=== PATIENT | male | born 1945 | race Caucasian/White ===

== ENCOUNTER 2017-02-07 18:16 | Inpatient (IN) ==
[2017-02-07] MEDS ORDERED: Aspirin 81 MG TAB.CHEW PO ONE (18:19)
--- NOTE | 2017-02-07 18:48 | Emergency Department Note ---
Disposition Clinical Impression: ACS (acute coronary syndrome) Disposition: Admitted As Inpatient Condition: Good Referrals: Unassigned,Provider [Non-Partnered Physician] - Forms: ED Satisfaction Letter Time of Disposition: 20:04 General Adult HPI - General Chief complaint: ED Chest Pain Stated complaint: CP Time Seen by Provider: 02/07/17 18:18 Source: patient, EMS Limitations: no limitations Nursing Notes Reviewed: Yes Vital Signs Reviewed: Yes - History of Present Illness HPI Narrative: History of present illness: 71 year old male transferred from the [facility] for chest pain. Patient has a history of one cardiac stent placed in in the right coronary artery. Earlier in the year had a chemical stress test which was negative. 3 days of increasing exertional chest pain pressure. With some shortness of breath. Patient got very concerned when he walked into his air conditioned basement which he says he keeps very cold and broke out into a sweat. Patient's initial troponin per [facility] was negative. He has an extensive history of CAD hypertension urinary artery disease chronic back pain. Patient states that he is pain-free at this time. Is here for further evaluation Pain Scale: 2 - Related Data Home Medications Medication Instructions Recorded Confirmed Allopurinol [Zyloprim 100 MG] 100 mg PO DAILY 01/15/16 02/07/17 Ascorbic Acid [Vitamin C] 500 mg PO DAILY 01/15/16 02/07/17 Aspirin 81 mg PO DAILY 01/15/16 02/07/17 Furosemide [Lasix] 40 mg PO BID 01/15/16 02/07/17 Gabapentin [Neurontin] 800 mg PO TID 01/15/16 02/07/17 Insulin Glargine,Hum.rec.anlog 20 unit SQ QA 01/15/16 02/07/17 [Lantus Solostar] Insulin Glargine,Hum.rec.anlog 65 unit SQ 01/15/16 02/07/17 [Lantus Solostar] Losartan Potassium [Cozaar] 100 mg PO DAILY 01/15/16 02/07/17 Pravastatin Sodium [Pravachol] 40 mg PO HS 01/15/16 02/07/17 Carboxymethylcellulose Sodium 1 drop OP QID 02/07/17 02/07/17 [Refresh Liquigel] Cholecalciferol (D-3) [Vitamin D] 2,000 unit PO DAILY 02/07/17 02/07/17 Cyanocobalamin (Vitamin B-12) 500 mcg PO DAILY 02/07/17 02/07/17 [Vitamin B-12] Dextrose [Glucose] 8 gm PO AD PRN 02/07/17 02/07/17 Diltiazem HCl [Diltiazem 24Hr Cd] 120 mg PO DAILY 02/07/17 02/07/17 Insulin ASPART [Novolog Flexpen] 20 unit SQ TIDWM 02/07/17 02/07/17 Metoprolol XL (24 HR) Succ [Toprol 12.5 mg PO DAILY 02/07/17 02/07/17 XL] Mineral Oil/Petrolatum,White 1 appl OP HS 02/07/17 02/07/17 [Refresh P.m. Ointment] Sildenafil Citrate [Viagra] 50 mg PO AD PRN 02/07/17 02/07/17 Previous Rx's Medication Instructions Recorded Levothyroxine [Synthroid] 25 mcg PO 0630 #30 tablet 02/27/16 Allergies Allergy/AdvReac Type Severity Reaction Status Date / Time niacin Allergy Unknown unknown Unverified 01/15/16 10:39 atorvastatin [From Lipitor] AdvReac Unknown stomach Verified 01/15/16 10:40 pain simvastatin [From Zocor] AdvReac Unknown stomach Verified 01/15/16 10:40 pain All systems ED: reviewed and negative except as stated. Cardiovascular: Reports: chest pain, dyspnea on exertion Respiratory: Reports: dyspnea Past Medical History - Past Medical History Attestation: Yes The following information was validated with the patient. Source: patient, old records reviewed Medical history: Reports: CHF, dementia, diabetes, hyperlipidemia, hypertension , myocardial infarction, peripheral artery disease, renal disease, thyroid disease, other Psychiatric history: Reports: bipolar, depression - Social History Smoking Status: Former smoker Alcohol use: Reports: none Drug use: Reports: none Physical Exam - General Limitations: no limitations General appearance: alert, in no apparent distress - Head Head exam: atraumatic, normocephalic - Eye Eye exam: Present: normal appearance, PERRL, EOMI - Neck Neck exam: Present: normal inspection, full ROM - Chest Chest inspection: Present: normal inspection, symmetric chest wall rise - Respiratory Respiratory exam: Present: normal lung sounds bilaterally - Cardiovascular Cardiovascular exam: Present: regular rate, normal rhythm - Abdominal Exam Abdominal exam: Present: soft, Non-Tender - Extremities Exam Extremities exam: Present: full ROM, pedal edema - Expanded Lower Extremity Exam Neurovascular/Tendon exam: Present: normal capillary refill Gait: observed and normal - Back Exam Back exam: Present: normal inspection, full ROM - Neurological Exam Neurological exam: Present: alert, oriented X3, CN II-XII intact - Psychiatric Psychiatric exam: Present: normal affect, normal mood Course - Reevaluation(s) Reevaluation #1: Patient resting comfortably in bed. Initial EKG shows no acute ischemic changes. Awaiting repeat labs. That admission. Patient is comfortable with this plan and is in agreement. Time: 18:48 Reevaluation #2: ED workup is complete. Patient's troponin is negative. We demonstration of chronic kidney disease. Awaiting hospitalist call back for admission. Patient stable Time: 19:52 Reevaluation #3: Discussed case with the hospitalist, patient accepted for admission in stable condition by Dr. RICO Time: 20:04 Vital Signs Temperature 99.1 F 02/07/17 18:18 Pulse Rate 55 02/07/17 18:18 Respiratory Rate 18 02/07/17 18:18 Blood Pressure 166/76 02/07/17 18:18 O2 Sat by Pulse Oximetry 98 02/07/17 18:18 Temperature 99.1 F 02/07/17 18:18 Pulse Rate 55 02/07/17 18:18 Respiratory Rate 18 02/07/17 18:18 Blood Pressure 166/76 02/07/17 18:18 O2 Sat by Pulse Oximetry 99 02/07/17 18:19 Oxygen Delivery Oxygen Delivery Room Air Medical Decision Making - Medical Records Medical records reviewed: Yes I reviewed the patient's medical records. - Lab Data Lab results reviewed: Yes I reviewed the patient's lab results. Result diagrams: 02/07/17 18:35 02/07/17 18:35 Lab Results 02/07/17 02/07/17 02/07/17 Range/Units 18:35 18:35 18:35 WBC 6.4 (4.3-11.1) K/mcL RBC 3.71 L (4.19-5.50) M/mcL Hgb 11.9 L (12.9-16.9) g/dL Hct 35.4 L (37.5-50.1) % MCV 95.4 (83.0-100.0) fL MCH 32.1 (28.0-33.3) pg MCHC 33.6 (31.6-35.5) g/dL RDW 13.2 (11.5-14.5) % Plt Count 80 L (140-400) K/mcL MPV 12.6 H (9.4-12.4) fL Immature Gran % 0.3 (0-4) % Seg Neutrophils % 67.4 % Lymphocytes % 19.0 % Monocytes % 10.3 % Eosinophils % 2.8 % Basophils % 0.2 % Neutrophils # 4.3 (1.6-8.9) K/mcL Lymphocytes # 1.2 (0.6-4.6) K/mcL Monocytes # 0.7 (0.0-1.3) K/mcL Eosinophils # 0.2 (0.0-0.6) K/mcL Basophils # 0.0 (0.0-0.2) K/mcL Immature Plt Fraction 6.8 H (1.1-6.1) % PT 11.8 (9.4-12.1) Seconds INR 1.1 APTT 27.2 (26.0-36.0) Seconds Sodium 142 (136-145) mEq/L Potassium 4.9 H (3.5-4.5) mEq/L Chloride 111 H (98-109) mEq/L Carbon Dioxide 23 (19-29) mEq/L BUN 71 H (8-26) mg/dL Creatinine 2.16 H (0.72-1.25) mg/dL Est GFR ( Amer) 37 L (> 60) Est GFR (Non-Af Amer) 30 L (> 60) BUN/Creatinine Ratio 33 H (6-26) Glucose 134 H (70-99) mg/dL Calculated Osmolality 317 H (280-300) Calcium 9.3 (8.6-10.8) mg/dL Troponin I (0-0.03) ng/mL 02/07/17 Range/Units 18:35 WBC (4.3-11.1) K/mcL RBC (4.19-5.50) M/mcL Hgb (12.9-16.9) g/dL Hct (37.5-50.1) % MCV (83.0-100.0) fL MCH (28.0-33.3) pg MCHC (31.6-35.5) g/dL RDW (11.5-14.5) % Plt Count (140-400) K/mcL MPV (9.4-12.4) fL Immature Gran % (0-4) % Seg Neutrophils % % Lymphocytes % % Monocytes % % Eosinophils % % Basophils % % Neutrophils # (1.6-8.9) K/mcL Lymphocytes # (0.6-4.6) K/mcL Monocytes # (0.0-1.3) K/mcL Eosinophils # (0.0-0.6) K/mcL Basophils # (0.0-0.2) K/mcL Immature Plt Fraction (1.1-6.1) % PT (9.4-12.1) Seconds INR APTT (26.0-36.0) Seconds Sodium (136-145) mEq/L Potassium (3.5-4.5) mEq/L Chloride (98-109) mEq/L Carbon Dioxide (19-29) mEq/L BUN (8-26) mg/dL Creatinine (0.72-1.25) mg/dL Est GFR ( Amer) (> 60) Est GFR (Non-Af Amer) (> 60) BUN/Creatinine Ratio (6-26) Glucose (70-99) mg/dL Calculated Osmolality (280-300) Calcium (8.6-10.8) mg/dL Troponin I 0.02 (0-0.03) ng/mL - Radiology Data Radiology results reviewed: Yes I reviewed the patient's radiology results. - EKG Data EKG #1 EKG attestation: Yes I reviewed and interpreted this EKG. EKG results narrative: Lead EKG interpreted without cardiology shows sinus bradycardia at 50 bpm, PA interval 177 ms, QS duration 95 ms, QT corrected 388 ms NORMAL LIMITS. NO ACUTE ISCHEMIC CHANGES ARE NOTED. NO ACUTE CHANGES WHEN COMPARED TO PRIOR EKG DATED 03/13/2006
[2017-02-07 18:51] LABS: Mean Corpuscular Volume 95.4 fL (83.0-100.0); Red Cell Distribution Width 13.2 % (11.5-14.5)
[2017-02-07 18:52] LABS: Basophils % 0.2 %; Eosinophils # 0.2 K/mcL (0.0-0.6); Eosinophils % 2.8 %; Hematocrit 35.4 % (37.5-50.1); Hemoglobin 11.9 g/dL (12.9-16.9); Immature Granulocytes % 0.3 % (0-4); Immature Platelets 6.8 % (1.1-6.1); Lymphocytes # 1.2 K/mcL (0.6-4.6); Mean Corpuscular HGB Conc 33.6 g/dL (31.6-35.5); Mean Corpuscular Hemoglobin 32.1 pg (28.0-33.3); Mean Platelet Volume 12.6 fL (9.4-12.4); Monocytes # 0.7 K/mcL (0.0-1.3); Monocytes % 10.3 %; Neutrophils # 4.3 K/mcL (1.6-8.9); Red Blood Count 3.71 M/mcL (4.19-5.50); Segmented Neutrophils % 67.4 %
[2017-02-07 18:53] LABS: Platelet Count 80 K/mcL (140-400)
[2017-02-07 18:55] LABS: INR 1.1; Prothrombin Time 11.8 Seconds (9.4-12.1)
[2017-02-07 18:57] LABS: Activated Partial Thrombo Time 27.2 Seconds (26.0-36.0)
[2017-02-07 19:04] LABS: Calcium 9.3 mg/dL (8.6-10.8); Potassium 4.9 mEq/L (3.5-4.5)
[2017-02-07] MEDS ORDERED: Naloxone 0.4 MG/ML INJ IVP PRN (20:04)
--- NOTE | 2017-02-07 22:09 | Internal Med History&Physical ---
Date of Encounter: 02/07/17 Time of Encounter: 22:09 Assessment and Plan (1) Chest pain Current visit: Yes Status: Acute patient with significant risk factors; HTN/poorly controlled DM2/CAD s/p stent in 2005 comes in with chest pain and associated symptoms concerning for ACS, his admission EKG was sinus bradycardia with no acute ischemic changes, troponin was unremarkable, he had a negative stress test in 07/2016, for this patient concern is for balanced ischemia considering his uncontrolled DM and other risk factors, for now we will get another stress test but will need to consider a cardiac cath sometime-this is currently limited by his CKD Qualifiers: Chest pain type: precordial pain Qualified Code(s): R07.2 - Precordial pain (2) Hyperkalemia Current visit: Yes Status: Acute this may be related to the CKD, we will hydrate and follow BMP (3) HTN (hypertension) Current visit: Yes Status: Chronic will continue home medications with BP monitoring Qualifiers: Hypertension type: essential hypertension Qualified Code(s): I10 - Essential (primary) hypertension (4) Diabetes mellitus Current visit: Yes Status: Chronic hx of DM with poor control, his most recent A1c was 8.4% with hyperglycemia, we will continue his home basal bolus regimen, for now he is FS Q6H for stress test Qualifiers: Diabetes mellitus type: type 2 Diabetes mellitus complication status: with kidney complications Diabetes mellitus complication detail: with chronic kidney disease Diabetes mellitus exterminator termite insulin use: with custodial use Chronic kidney disease stage: stage 3 (moderate) Qualified Code(s): E11.22 - Type 2 diabetes mellitus with diabetic chronic kidney disease; N18.3 - Chronic kidney disease, stage 3 (moderate); Z79.4 - intermediate card tender (current) use of insulin (5) Chronic kidney disease (CKD), stage III (moderate) Current visit: Yes Status: Chronic seems to be at his baseline, we will avoid nephrotoxins, renally dose all medications and follow BMP Internal Medicine - H&P: HPI Chief complaint: Chest pain Admitted From: Emergency Dept Plans for Post Hospital Care: Home History of present illness: Mr. Sandoval is a 71 year old male with a history of HTN/poorly controlled DM2/ CAD s/p stent in 2005 who comes in with chest pain. He was in his usual state of health until 3 days prior to presentation when he began to have stuttering chest pain. The pain is substernal in location, non radiating, 6/10 in severity. He had multiple episodes, with no aggravating or relieving factors. He had no nitro at home so he never took any. He waited it out over the course of 2 days until today when it was associated with diaphoresis in a room that was cold. He also had dyspnea and apprehension associated with today's episode. No lightheadedness, nausea or vomiting, palpitations were noted. He reported t the ER of [facility] for further evaluation. Past Medical History CAD s/p stent Carpal Tunnel Hypertension Diabetes Cervical Spine Cyst Heart Disease Arthritis Kidney Problems Surgical History Penile Implant--2012 Social history: Tobacco: Past smoker, 4ppd for 20 years. Quit 25 years ago. Alcohol: None Recreational drugs: None Marital Status: Occupation: Disabled/Retired .Served in [employer], was stationed in [employer] and [employer] as well. 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 Living situation: At home with Family History Father: , Heart/Stroke Mother: , Sugar Brother(s): 3, 1 alive, 2 Sister(s):2 alive, 1-cancer Child(kevin): 2 alive, 1-narcolepsy Past Med Surg Social Fam HX - Past Medical History Source: old records reviewed Medical history: CHF, coronary artery disease (s/p stent), dementia, diabetes, hyperlipidemia, hypertension, myocardial infarction, peripheral artery disease, renal disease (stage 3), thyroid disease, other Psychiatric history: bipolar, depression, PTSD - Past Surgical History Surgical History: angioplasty/stent - Social History Smoking Status: Former smoker Smokeless Tobacco Status: No Alcohol use: none Drug use: none - Family History Father Living Status: Hx Family Cardiac Disorders: Yes Internal Medicine - H&P: Meds Allopurinol [Zyloprim 100 MG] 100 mg PO DAILY 01/15/16 [History] Ascorbic Acid [Vitamin C] 500 mg PO DAILY 01/15/16 [History] Aspirin 81 mg PO DAILY 01/15/16 [History] Furosemide [Lasix] 40 mg PO BID 01/15/16 [History] Gabapentin [Neurontin] 800 mg PO TID 01/15/16 [History] Insulin Glargine,Hum.rec.anlog [Lantus Solostar] 20 unit SQ QAM 01/15/16 [ History] Insulin Glargine,Hum.rec.anlog [Lantus Solostar] 65 unit SQ HS 01/15/16 [History ] Losartan Potassium [Cozaar] 100 mg PO DAILY 01/15/16 [History] Pravastatin Sodium [Pravachol] 40 mg PO HS 01/15/16 [History] Levothyroxine [Synthroid] 25 mcg PO 0630 #30 tablet 02/27/16 [Rx] Carboxymethylcellulose Sodium [Refresh Liquigel] 1 drop OP QID 02/07/17 [History ] Cholecalciferol (D-3) [Vitamin D] 2,000 unit PO DAILY 02/07/17 [History] Cyanocobalamin (Vitamin B-12) [Vitamin B-12] 500 mcg PO DAILY 02/07/17 [History] Dextrose [Glucose] 8 gm PO AD PRN 02/07/17 [History] Diltiazem HCl [Diltiazem 24Hr Cd] 120 mg PO DAILY 02/07/17 [History] Insulin ASPART [Novolog Flexpen] 20 unit SQ TIDWM 02/07/17 [History] Metoprolol XL (24 HR) Succ [Toprol XL] 12.5 mg PO DAILY 02/07/17 [History] Mineral Oil/Petrolatum,White [Refresh P.m. Ointment] 1 appl OP HS 02/07/17 [ History] Sildenafil Citrate [Viagra] 50 mg PO AD PRN 02/07/17 [History] Allergies niacin Allergy (Unknown, Verified 02/07/17 22:34) unknown atorvastatin [From Lipitor] Adverse Reaction (Unknown, Verified 01/15/16 10:40) stomach pain simvastatin [From Zocor] Adverse Reaction (Unknown, Verified 01/15/16 10:40) stomach pain All Systems PM: A 10-system review of systems was performed and is negative for pertinent findings except as documented above in the HPI. - Constitutional Vitals: Temp Pulse Resp BP Pulse Ox 98.0 F 50 18 172/78 98 02/07/17 21:30 02/07/17 21:30 02/07/17 21:30 02/07/17 21:30 02/07/17 21:30 GENERAL: Adult male, lying in bed, Alert, not in acute distress, HEENT: NC/AT, EOMI, PERRLA, anicteric sclera, normal conjunctiva, supple, clear nares, moist mucous membranes, clear oropharynx, RESP: Lungs are clear to auscultation bilaterally, good AE bilaterally, No crackles or wheeze CARDIO: Normal hearts sounds; S1 and 2, RRR with no murmurs, no JVD, no ankle edema GI: Soft, full, no tenderness, no organomegaly felt, normal bowel sounds heard MUSCULOSKELETAL: grossly normal movements bilaterally, no deformities noted, no calf tenderness NEUROLOGIC: CN 2-12 intact grossly. No motor/sensory deficit appreciated, PSYCHIATRY: AAO x 3. Mood is fair, SKIN: tattoos noted Internal Med - H&P Results - Labs CBC & Chem 7: 02/07/17 18:35 02/08/17 00:36 - EKG Data -: EKG Interpreted by Myself - Diagnostic Studies Chest x-ray Status: image reviewed by me
[2017-02-07] MEDS: Gabapentin 400 MG CAPSULE PO SCH (22:36)
[2017-02-07] MEDS: Artificial Tears SOLN 15 ML BOTTLE OP SCH (22:37)
[2017-02-07] MEDS ORDERED: Dextrose Gel 15 GM PO PRN ×2 (22:48)
[2017-02-07] MEDS ORDERED: D5% in Water 1,000 ML IVC PRN (22:48)
[2017-02-07] MEDS ORDERED: *HR* Dextrose 50 % in Water (Syg) 50 ML SYRINGE IVP PRN (22:48)
[2017-02-07] MEDS: Pravastatin Sodium [Pravachol] 40 MG PO SCH (22:51)
[2017-02-07] MEDS ORDERED: Insulin LISPRO 300 UNITS/3 ML VIAL SQ SCH ×2 (23:00)
[2017-02-08] MEDS: *HR* Heparin 5,000 UNIT/ML VIAL SQ SCH ×3 (00:22→15:13)
[2017-02-08 01:12] LABS: Hemoglobin A1C 8.4 %
[2017-02-08 01:31] LABS: Calcium 8.7 mg/dL (8.6-10.8); Magnesium 1.9 mg/dL (1.6-2.6); Phosphorous 3.7 mg/dL (2.3-4.7); Potassium 5.5 mEq/L (3.5-4.5)
[2017-02-08 01:43] LABS: Chol/HDL Ratio 4.3 (0-4.9)
[2017-02-08] MEDS ORDERED: Ringers Solution, Lactated 1,000 ML IVC SCH (04:45)
[2017-02-08] MEDS: Levothyroxine 25 MCG TABLET PO SCH (06:25)
[2017-02-08] MEDS: Insulin LISPRO 300 UNITS/3 ML VIAL SQ SCH ×3 (06:39→18:21)
[2017-02-08] MEDS ORDERED: Regadenoson 0.4 MG/5 ML SYRINGE IVP ONE (07:26)
[2017-02-08] MEDS ORDERED: Ascorbic Acid 500 MG TABLET PO SCH (09:00)
[2017-02-08] MEDS ORDERED: Diltiazem CD (24hr) 120 MG CAPSULE PO SCH (09:00)
[2017-02-08] MEDS ORDERED: Cholecalciferol (D-3) 1,000 UNIT TABLET PO SCH (09:00)
[2017-02-08] MEDS ORDERED: Cyanocobalamin (B-12) 1,000 MCG TABLET PO SCH ×2 (09:00→10:45)
[2017-02-08] MEDS ORDERED: Aspirin 81 MG TAB.CHEW PO SCH (09:00)
[2017-02-08] MEDS ORDERED: Metoprolol XL (24 HR) Succ 25 MG TAB.ER.24H PO SCH (09:00)
[2017-02-08] MEDS: Gabapentin 400 MG CAPSULE PO SCH ×3 (11:04→22:29)
[2017-02-08] MEDS: Artificial Tears SOLN 15 ML BOTTLE OP SCH ×4 (11:07→22:29)
[2017-02-08] MEDS: 0.9 % Sodium Chloride 1,000 ML IVC SCH (11:49)
--- NOTE | 2017-02-08 12:56 | Nuclear Medicine Stress Report ---
Regadenoson Nuclear Stress Name: Casper Sandoval Date of Study: 02/08/2017 Date: 1945 Ht: 70.0 in Medical Record#: [id number] Age: 71 Wt: 262.0 lb Gender: Male Order #: [id number] Location: [facility] Room: [facility] Supervising Provider: Remedios Lawrence CNP Reading Physician: Kristyn Romero DO Ordering Physician: Charla Redman CNP Primary Care Physician: [facility] Stress Technologist: Katy Valencia, RELAY CHECKER,CPFT Pharmacoepidemiologist: Hany Crump Indications: Coronary Artery Disease, Chest Pain Impression: Technically challenging study due to body habitus. No evidence for ischemia or infarct on this study. Pharmacologic ECG was negative for ischemia at the level of heart rate achieved. Gated EF = 69%. History: Hypertension Diabetes Hypercholesteremia Prior PCI Stress Test Summary: Stress Test Type: Pharmacologic Regadenoson 0.4mg/5ml given IV Baseline Information: Initial Heart Rate: 49 Blood Pressure: 122/58 Stress Information: Test Terminated Due to (primary): Dyspnea Maximum Blood Pressure: 154/62 Maximum Heart Rate: 67 Percent Maximum Heart Rate Achieved: 44 Double Product: [id number] METS Reached: 1 Symptoms: Shortness of breath Nuclear Summary: SPECT myocardial perfusion imaging using Tc99m Sestamibi given intravenously was performed at rest and following cardiac stress testing. The resting images were obtained following initial dose of 11.7 mCi. Following stress an additional dose of 30.1 mCi was given at peak exercise or 30 seconds post regadenoson infusion. Medication Given: Time Medication Dose Units Route Findings: Stress Note * Resting ECG demonstrated normal sinus rhythm with early repolarization. * Pharmacologic stress ECG is negative for ischemia at level of heart rate achieved. * No arrhythmias were noted during stress. * Patient had no chest pain during stress. Hemodynamic responses * Normal hemodynamic responses to pharmacologic stress. Study Quality * Technically challenging due to body habitus. TID * No evidence of transient ischemic dilatation. Lung Uptake * There is no evidence of increase lung uptake. NORMALS * Normal wall motion. PERFUSION * Small size, mild intensity fixed perfusion defect involving the distal anterior wall. Wall motion is normal. Findings represent artifact. * Small sized, mild intensity primarily fixed perfusion defect involving the distal inferior wall that improves during stress. Findings represent artifact. * Other areas demonstrate homogeneous rest and stress perfusion. Gated EF % * Gated EF = 69%. Updated by Kristyn Romero on 02/08/2017 12:50:01 PM electronically signed on 02/08/2017 12:51:17 PM with status of Final
[2017-02-08 13:32] LABS: Calcium 9.3 mg/dL (8.6-10.8); Potassium 5.4 mEq/L (3.5-4.5)
--- NOTE | 2017-02-08 17:06 | Discharge Summary ---
<Iraj Esteves - Last Filed: 02/08/17 17:07> Date of Encounter: 02/08/17 Time of Encounter: 17:06 - Discharge Diagnosis (1) Chest pain Status: Acute Qualifiers: Chest pain type: precordial pain Qualified Code(s): R07.2 - Precordial pain (2) Hyperkalemia Status: Acute (3) Chronic kidney disease (CKD), stage III (moderate) Status: Chronic (4) Diabetes mellitus Status: Chronic Qualifiers: Diabetes mellitus type: type 2 Diabetes mellitus complication status: with kidney complications Diabetes mellitus complication detail: with chronic kidney disease Diabetes mellitus terminal gauger supervisor insulin use: with terminal gauger supervisor use Chronic kidney disease stage: stage 3 (moderate) Qualified Code(s): E11.22 - Type 2 diabetes mellitus with diabetic chronic kidney disease; N18.3 - Chronic kidney disease, stage 3 (moderate); Z79.4 - USP (current) use of insulin (5) HTN (hypertension) Status: Chronic Qualifiers: Hypertension type: essential hypertension Qualified Code(s): I10 - Essential (primary) hypertension (6) Bicytopenia Status: Acute - Discharge Medications Prescriptions: hydrALAZINE [HydrALAZINE] 25 mg PO Q8HR 30 Days Home Medications: Allopurinol [Zyloprim 100 MG] 100 mg PO DAILY 01/15/16 [History] Ascorbic Acid [Vitamin C] 500 mg PO DAILY 01/15/16 [History] Aspirin 81 mg PO DAILY 01/15/16 [History] Furosemide [Lasix] 40 mg PO BID 01/15/16 [History] Gabapentin [Neurontin] 800 mg PO TID 01/15/16 [History] Insulin Glargine,Hum.rec.anlog [Lantus Solostar] 20 unit SQ QAM 01/15/16 [ History] Insulin Glargine,Hum.rec.anlog [Lantus Solostar] 65 unit SQ HS 01/15/16 [History ] Pravastatin Sodium [Pravachol] 40 mg PO HS 01/15/16 [History] Levothyroxine [Synthroid] 25 mcg PO 0630 #30 tablet 02/27/16 [Rx] Carboxymethylcellulose Sodium [Refresh Liquigel] 1 drop OP QID 02/07/17 [History ] Cholecalciferol (D-3) [Vitamin D] 2,000 unit PO DAILY 02/07/17 [History] Cyanocobalamin (Vitamin B-12) [Vitamin B-12] 500 mcg PO DAILY 02/07/17 [History] Dextrose [Glucose] 8 gm PO AD PRN 02/07/17 [History] Diltiazem HCl [Diltiazem 24Hr Cd] 120 mg PO DAILY 02/07/17 [History] Insulin ASPART [Novolog Flexpen] 20 unit SQ TIDWM 02/07/17 [History] Metoprolol XL (24 HR) Succ [Toprol Xl] 12.5 mg PO DAILY 02/07/17 [History] Mineral Oil/Petrolatum,White [Refresh P.m. Ointment] 1 appl OP HS 02/07/17 [ History] Sildenafil Citrate [Viagra] 50 mg PO AD PRN 02/07/17 [History] hydrALAZINE [HydrALAZINE] 25 mg PO Q8HR 30 Days 02/08/17 [Rx] Allergies/Adverse Reactions: Allergies niacin Allergy (Unknown, Verified 02/07/17 22:34) unknown atorvastatin [From Lipitor] Adverse Reaction (Unknown, Verified 01/15/16 10:40) stomach pain simvastatin [From Zocor] Adverse Reaction (Unknown, Verified 01/15/16 10:40) stomach pain Procedures/tests Complete & Pending: Procedures Performed prior 72 hours Category Date Time Status NM migel perf SPECT multi [NM] Routine Exams 02/07/17 23:04 Taken SP pharm nuclear stress Routine Y 02/07/17 23:04 Completed Date of admission: 02/07/17 20:30 Primary care physician: [facility] Discharging clinician: Iraj Esteves Anticipated date of discharge: 02/08/17 - Patient Status Disposition: Home, Self-Care Condition: Good Functional capacity at discharge: independent ambulation Overall status at discharge: patient is progressing back to baseline - Discharge Instructions [facility] - - Diet and Activity Activity: increase activity as tolerated Diet: diabetic diet, low fat, low cholesterol, low salt diet Hospital course: Mr. Sandoval is a 71 year old male with the past with history of coronary artery disease, diabetes, hypertension, CAD cessation 3. He was admitted to [facility] with the chest pain. He will undergo stress test which was negative for ischemia. Additionally upon admission it was noted that he had hyperkalemia. Most likely this is secondary to combination of his COPD and his losartan. His losartan was stopped. He was started on hydralazine for blood pressure control in lieu of the losartan. He was also treated with Kayexalate. Potassium trended down. At this time the patient denies any chest pain. He has no symptoms at this time. We will discharge him home. Of note with review of his laboratory values he does have a mild chronic anemia this is most likely secondary to his chronic kidney disease. However he does have a thrombocytopenia as well with his history of insulin-dependent diabetes mellitus would recommend workup for cirrhosis if not artery done at this point. Additionally with his past medical history of coronary artery disease and having received a stent 6 years ago if patient continues to have symptoms would recommend consult to cardiology if he returns to the hospital for chest pain to evaluate him for possible left heart catheter. I also would recommend that he follow-up with cardiology at the [facility] as a now have a education manager on staff there. I have discussed the above plan with the patient and his he is agreeable. We will discharge him today. - Time Spent with Patient Total time spent providing and/or coordinating discharge services: Greater than 30 minutes - Constitutional Vitals: Temp Pulse Resp BP Pulse Ox 97.4 F L 51 16 157/75 95 02/08/17 15:05 02/08/17 15:05 02/08/17 15:05 02/08/17 15:05 02/08/17 15:05 General appearance: Present: A&O X 3, pleasant, no acute distress, obese - Head Head exam: Present: atraumatic, normocephalic - Eye Eye exam: Present: PERRL, conjuntiva pink, sclera anicteric Pupils: Present: PERRL - Neck Neck exam general surgery: Present: supple, trachea midline. Absent: lymphadenopathy - Respiratory Respiratory exam: Present: CTAB. Absent: accessory muscle use, rales, rhonchi, wheezes - Cardiovascular Cardiovascular exam: Present: RRR, +S1, +S2. Absent: diastolic murmur, gallop, rubs, systolic murmur - GI/Abdominal GI/Abdominal exam: Present: normal bowel sounds, soft, no peritoneal signs. Absent: distended, tenderness - Extremities Exam Extremities exam: Present: warm, radial pulses palpable and symetrical. Absent : calf tenderness, cyanotic, pedal edema - Skin Skin exam: Present: dry, intact <Justen Sam - Last Filed: 02/08/17 19:05> Date of Encounter: 02/08/17 Procedures/tests Complete & Pending: Procedures Performed prior 72 hours Category Date Time Status NM migel perf SPECT multi [NM] Routine Exams 02/07/17 23:04 Taken SP pharm nuclear stress Routine Y 02/07/17 23:04 Completed Date of admission: 02/07/17 20:30 Primary care physician: [facility] Hospital course: Mr. Sandoval is a 71 year old male - Time Spent with Patient Total time spent providing and/or coordinating discharge services: - Constitutional Vitals: Temp Pulse Resp BP Pulse Ox 97.4 F L 51 16 157/75 95 02/08/17 15:05 02/08/17 15:05 02/08/17 15:05 02/08/17 15:05 02/08/17 15:05 - Attending Attestation I examined this patient and my medical decision-making was reviewed with the Resident Physician, Dr. Esteves. I agree with the documented findings, disposition and treatment plan as described. patient presented with atypical chest pain. Serial troponins were negative. Stress test was negative. On examheart auscultation reveals S1 and S2 withno murmurs. Lungs are clear. Plan: Patient continued to have hyperka Hyperkalemia. We will treat him with IV fluids an Kayexalate and plan for discharge home later this evening if potassium drops below 5.
[2017-02-08 17:16] LABS: Calcium 8.9 mg/dL (8.6-10.8); Potassium 5.7 mEq/L (3.5-4.5)
[2017-02-08] MEDS ORDERED: 0.9 % Sodium Chloride 1,000 ML IVC ONE (17:58)
[2017-02-08 21:49] LABS: Calcium 8.8 mg/dL (8.6-10.8)
[2017-02-08] MEDS: Pravastatin Sodium [Pravachol] 40 MG PO SCH (22:29)
[2017-02-09] MEDS: *HR* Heparin 5,000 UNIT/ML VIAL SQ SCH (00:10)
[2017-02-09] MEDS: Insulin LISPRO 300 UNITS/3 ML VIAL SQ SCH ×2 (00:10→05:34)
[2017-02-09] MEDS ORDERED: Calcium Gluconate 1,000 MG in D5% in Water 100 ML IVPB ONE (03:51)
[2017-02-09] MEDS ORDERED: 0.9 % Sodium Chloride 250 ML IVC ONE (03:53)
[2017-02-09] MEDS: 0.9 % Sodium Chloride 1,000 ML IVC SCH (04:48)
[2017-02-09] MEDS: Levothyroxine 25 MCG TABLET PO SCH (04:55)
[2017-02-09 05:23] VITALS: BP 144/61
[2017-02-09 07:11] LABS: Calcium 8.6 mg/dL (8.6-10.8); Magnesium 1.6 mg/dL (1.6-2.6)
[2017-02-09 07:13] LABS: Potassium 5.3 mEq/L (3.5-4.5)
--- NOTE | 2017-02-09 09:16 | Internal Med Progress Note ---
<Iraj Esteves - Last Filed: 02/09/17 09:14> Date of Encounter: 02/09/17 Time of Encounter: 09:14 - Assessment and plan (1) Chest pain Status: Acute Assessment and plan: Patient has had no more chest pain since admission. Stress test negative for ischemia. However this was a poor quality study. Patient dose have history of CAD and had PTCA with stent 6 years ago. We discussed at length the limitations of stress testing. We did offer to consult cardiology to evaluate the patient for possible LHC. However patient desires to be discharged at this time. He will follow up with the [facility] and request a referrel to the new Customer Operations Representative there. Patient agrees to return to the ED should he have recurrent chest pain. He agrees to not drive himself and will either call EMS or have his drive. him. Patient K is trending down and we will discharge him this AM. Qualifiers: Chest pain type: precordial pain Qualified Code(s): R07.2 - Precordial pain (2) Hyperkalemia Status: Acute Assessment and plan: trending down. Will have BMP drawn in 1 week at [facility]. Patient provided with an RX for the Lab (3) Chronic kidney disease (CKD), stage III (moderate) Status: Chronic Assessment and plan: stable (4) Diabetes mellitus Status: Chronic Assessment and plan: resume home medications after DC. Qualifiers: Diabetes mellitus type: type 2 Diabetes mellitus complication status: with kidney complications Diabetes mellitus complication detail: with chronic kidney disease Diabetes mellitus computer terminal operator insulin use: with detention use Chronic kidney disease stage: stage 3 (moderate) Qualified Code(s): E11.22 - Type 2 diabetes mellitus with diabetic chronic kidney disease; N18.3 - Chronic kidney disease, stage 3 (moderate); Z79.4 - superintendent container terminal (current) use of insulin (5) HTN (hypertension) Status: Chronic Assessment and plan: Will continue discharge plan. Patient to follow up with [facility]. Qualifiers: Hypertension type: essential hypertension Qualified Code(s): I10 - Essential (primary) hypertension (6) Bicytopenia Status: Acute Assessment and plan: mild. would recommend evaluation for possible early cirrhosis given his history of diabetes. [facility] - Subjective Interval history: No major events overnight. Patient has not had any recurrence of chest pain since admission. Patient was kept overnight as he had hyperkalemia. He is having loose stools this AM from [facility]. He has no further complaints or concerns at this time and requests to be discharged. - Constitutional Vitals: Temp Pulse Resp BP Pulse Ox 98 F 55 16 144/61 96 02/09/17 05:22 02/09/17 05:22 02/09/17 05:22 02/09/17 05:22 02/09/17 05:22 General appearance: Present: A&O X 3, pleasant, no acute distress, obese - Head Head exam: Present: atraumatic, normocephalic - Eye Eye exam: Present: conjuntiva pink, sclera anicteric - Neck Neck exam general surgery: Present: full ROM, normal inspection - Respiratory Respiratory exam: Present: CTAB. Absent: accessory muscle use, rales, rhonchi, wheezes - Cardiovascular Cardiovascular exam: Present: RRR, +S1, +S2. Absent: diastolic murmur, gallop, rubs, systolic murmur - Extremities Exam Extremities exam: Present: warm, radial pulses palpable and symetrical. Absent : calf tenderness, cyanotic, pedal edema - Skin Skin exam: Present: dry, intact Internal Medicine: Result - Labs CBC & Chem 7: 02/07/17 18:35 02/09/17 06:15 Labs: BMP 02/08/17 02/08/17 02/08/17 13:06 16:47 21:22 Sodium 140 138 142 Potassium 5.4 H 5.7 H 5.0 H Chloride 111 H 109 112 H Carbon Dioxide 23 24 23 BUN 59 H 57 H 54 H Creatinine 1.70 H 1.84 H 1.79 H Glucose 128 H 217 H 163 H Calcium 9.3 8.9 8.8 02/09/17 06:15 Sodium 141 Potassium 5.3 H Chloride 113 H Carbon Dioxide 22 BUN 49 H Creatinine 1.61 H Glucose 104 H Calcium 8.6 - ABG Interpretation ABG results: PT/INR, D-dimer PT 11.8 Seconds (9.4-12.1) 02/07/17 18:35 Consult Discharge Plan - Plan Instructions: Hydralazine (By mouth), Chest Pain (DC), Diabetes Mellitus Type 2 in Adults (DC), Chronic Hypertension (DC) [facility]errals: [facility] [Primary Care Provider] - Prescriptions: hydrALAZINE [HydrALAZINE] 25 mg PO Q8HR 30 Days <Justen Sam - Last Filed: 02/09/17 19:14> Date of Encounter: 02/09/17 - Constitutional Vitals: Temp Pulse Resp BP Pulse Ox 98 F 55 16 144/61 96 02/09/17 05:22 02/09/17 05:22 02/09/17 05:22 02/09/17 05:22 02/09/17 05:22 Internal Medicine: Result - Labs CBC & Chem 7: 02/07/17 18:35 02/09/17 06:15 Labs: BMP 02/08/17 02/09/17 21:22 06:15 Sodium 142 141 Potassium 5.0 H 5.3 H Chloride 112 H 113 H Carbon Dioxide 23 22 BUN 54 H 49 H Creatinine 1.79 H 1.61 H Glucose 163 H 104 H Calcium 8.8 8.6 - ABG Interpretation ABG results: PT/INR, D-dimer PT 11.8 Seconds (9.4-12.1) 02/07/17 18:35 - Attending Attestation I examined this patient and my medical decision-making was reviewed with the Resident Physician, Dr. Esteves. I agree with the documented findings, disposition and treatment plan as described except to the extent set forth below. I have advised the patient to return to the hospital if he experiences chest pain, r pressure,diaphoresis or lightheadedness with exertionor worsening shortness of breath. The patient is symptom free currently and back to Baseline. He stress test was negative. Potassium trending down. He will be discharged home. I have advised him to avoid high potassium foods and gave him a list of these.
--- NOTE | 2017-02-10 09:45 | Electrocardiograph Report ---
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
== END 2017-02-09 09:45 | disposition home or self-care (01) | DRG 313 ==
LOC: 3BNU 18:16 → EMEROO 18:16 → SUATTDRO 20:30 → 3BNU 20:55
PROVIDERS: ADMIT Internal Medicine Endocrinology, Diabetes & Metabolism; ATTEND Internal Medicine

== ENCOUNTER 2018-09-10 18:19 | Inpatient (IN) ==
--- NOTE | 2018-09-10 18:45 | Emergency Department Note ---
Disposition Clinical Impression: Acute kidney failure Qualifiers: Acute renal failure type: with other specified pathological lesion Qualified Code(s): N17.8 - Other acute kidney failure Disposition: Admitted As Inpatient [facility]: [facility] [Primary Care Provider[facility] - General Adult HPI - General Chief complaint: ED Urogenital-Male Stated complaint: blood in urine Time Seen by Provider: 09/10/18 18:32 Source: patient, EMS Limitations: no limitations Nursing Notes Reviewed: Yes Vital Signs Reviewed: Yes - History of Present Illness HPI Narrative: Attestation note: Patient was seen with the emergency medicine resident/nurse practitioner/physician assistant professor of chemistry/transitional resident/medical student: Dr. Mika Storey I have personally performed a face to face evaluation on this patient. I have reviewed and agree with history and physical examination patient management and disposition. Briefly the salient points of the case are as follows: 73-year-old male history of CTD stage III and 4 was briefly [facility]". Patient having giancarlo hematuria for several days with fluid retention weight gain and fatigue feeling poorly with loss of appetite over the past week or so. Patient's creatinine was 5.15 with a GFR of 11. Patient has edema he appears short of breath with some rales afebrile have his bladder scanned with the plan of care bedside ultrasound to check for bladder distention is seen by irrigation as necessary. Radial screening labs we will then consult nephrology for consideration of dialysis urgently if not emergently. We will obtain an EKG to ensure there are no ischemic changes or T waves consistent with hyperkalemia. Disposition pending Pain Scale: 7 - Related Data Home Medications Medication Instructions Recorded Confirmed Allopurinol [Zyloprim 100 MG] 100 mg PO DAILY 01/15/16 06/01/18 Furosemide [Lasix] 40 mg PO BID 01/15/16 06/01/18 Gabapentin [Neurontin] 400 mg PO BID 01/15/16 06/01/18 Insulin Glargine,Hum.rec.anlog 20 unit SQ QAM 01/15/16 06/01/18 [Lantus Solostar] Insulin Glargine,Hum.rec.anlog 65 unit SQ HS 01/15/16 06/01/18 [Lantus Solostar] Pravastatin Sodium [Pravachol] 40 mg PO HS 01/15/16 06/01/18 Cholecalciferol (D-3) [Vitamin D] 2,000 unit PO DAILY 02/07/17 06/01/18 Dextrose [Glucose] 8 gm PO AD PRN 02/07/17 06/01/18 Diltiazem HCl [Diltiazem 24Hr Cd] 120 mg PO DAILY 02/07/17 06/01/18 Insulin ASPART [Novolog Flexpen] 15 unit SQ TIDWM 02/07/17 06/01/18 Metoprolol XL (24 HR) Succ [Toprol 12.5 mg PO DAILY 02/07/17 06/01/18 Xl] Sildenafil Citrate [Viagra] 50 mg PO AD PRN 02/07/17 06/01/18 Previous Rx's Medication Instructions Recorded Levothyroxine [Synthroid] 25 mcg PO 0630 #30 tablet 02/27/16 hydrALAZINE [HydrALAZINE] 25 mg PO Q8HR 30 Days tablet 02/08/17 Allergies Allergy/AdvReac Type Severity Reaction Status Date / Time niacin Allergy Unknown unknown Verified 02/07/17 22:34 atorvastatin [From Lipitor] AdvReac Unknown stomach Verified 06/01/18 09:05 pain simvastatin [From Zocor] AdvReac Unknown stomach Verified 06/01/18 09:05 pain Past Medical History - Past Medical History Medical history: Reports: arthritis, CHF, coronary artery disease, dementia, diabetes, hyperlipidemia, hypertension, myocardial infarction, peripheral artery disease, renal disease, thyroid disease, other Surgical history: Reports: angioplasty/stent Psychiatric history: Reports: bipolar, depression, PTSD - Social History Smoking Status: Former smoker Smokeless Tobacco Status: No Alcohol use: Reports: none Drug use: Reports: none Physical Exam - General Limitations: no limitations General appearance: alert Course Vital Signs Temperature 97.4 F L 09/10/18 18:26 Pulse Rate 57 09/10/18 18:26 Respiratory Rate 14 09/10/18 18:26 Blood Pressure 146/66 09/10/18 18:26 O2 Sat by Pulse Oximetry 98 09/10/18 18:26 Temperature 97.4 F L 09/10/18 18:26 Pulse Rate 57 09/10/18 18:26 Respiratory Rate 14 09/10/18 18:26 Blood Pressure 146/66 09/10/18 18:26 O2 Sat by Pulse Oximetry 98 09/10/18 18:26 Oxygen Delivery Oxygen Delivery Room Air
--- NOTE | 2018-09-10 18:47 | Emergency Department Note ---
Disposition Clinical Impression: Acute kidney failure Qualifiers: Acute renal failure type: with other specified pathological lesion Qualified Code(s): N17.8 - Other acute kidney failure Disposition: Admitted As Inpatient Condition: Fair [facility]: [facility]Primary Care Provider[facility] - Forms: ED Satisfaction Letter Time of Disposition: 19:07 General Adult HPI - General Chief complaint: ED Urogenital-Male Stated complaint: blood in urine Time Seen by Provider: 09/10/18 18:32 Source: patient, EMS Limitations: no limitations - History of Present Illness HPI Narrative: Patient is a 73 year old male presenting from the [facility] with concern for BUCKY on CKD and fluid retention. Patient with history of CHF, CKD at one time and been on dialysis, is no longer, hypertension, hyperlipidemia, diabetes. 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 On arrival, patient was found to have a GFR of 11, serum creatinine of 5.15 with a baseline of 2.2. Patient also found on chest x-ray to have pulmonary edema suggested of fluid overload, hemoglobin of 8.6. Patient states that he has been having some hematuria for the past week, progressively worse some clots as well. Patient denies history of this in the past. Patient states she also has some urgency and frequency. Patient also states he has been having some increasing shortness of breath over the past few weeks, with increased lower extremity swelling. Patient has currently taking 80 mg twice per day and Lasix. He has not missed this dose. Patient denies any chest pain, abdominal pain, nausea or vomiting. No recent fevers or chills. No myalgias. Pain Scale: 7 - Related Data Home Medications Medication Instructions Recorded Confirmed Allopurinol [Zyloprim 100 MG] 100 mg PO DAILY 01/15/16 06/01/18 Furosemide [Lasix] 40 mg PO BID 01/15/16 06/01/18 Gabapentin [Neurontin] 400 mg PO BID 01/15/16 06/01/18 Insulin Glargine,Hum.rec.anlog 20 unit SQ QAM 01/15/16 06/01/18 [Lantus Solostar] Insulin Glargine,Hum.rec.anlog 65 unit SQ HS 01/15/16 06/01/18 [Lantus Solostar] Pravastatin Sodium [Pravachol] 40 mg PO HS 01/15/16 06/01/18 Cholecalciferol (D-3) [Vitamin D] 2,000 unit PO DAILY 02/07/17 06/01/18 Dextrose [Glucose] 8 gm PO AD PRN 02/07/17 06/01/18 Diltiazem HCl [Diltiazem 24Hr Cd] 120 mg PO DAILY 02/07/17 06/01/18 Insulin ASPART [Novolog Flexpen] 15 unit SQ TIDWM 02/07/17 06/01/18 Metoprolol XL (24 HR) Succ [Toprol 12.5 mg PO DAILY 02/07/17 06/01/18 Xl] Sildenafil Citrate [Viagra] 50 mg PO AD PRN 02/07/17 06/01/18 Previous Rx's Medication Instructions Recorded Levothyroxine [Synthroid] 25 mcg PO 0630 #30 tablet 02/27/16 hydrALAZINE [HydrALAZINE] 25 mg PO Q8HR 30 Days tablet 02/08/17 Allergies Allergy/AdvReac Type Severity Reaction Status Date / Time niacin Allergy Unknown unknown Verified 02/07/17 22:34 atorvastatin [From Lipitor] AdvReac Unknown stomach Verified 06/01/18 09:05 pain simvastatin [From Zocor] AdvReac Unknown stomach Verified 06/01/18 09:05 pain All systems ED: reviewed and negative except as stated. Review of Systems: As Per HPI Constitutional: Denies: fever, chills, weakness, weight change ENT ED: Denies: ear pain, throat pain, dental pain, hearing loss, epistaxis, congestion, dysphagia Cardiovascular: Reports: dyspnea on exertion, orthopnea. Denies: chest pain, palpitations Respiratory: Denies: cough, dyspnea, wheezes, hemoptysis, sputum production Gastrointestinal: Denies: abdominal pain, nausea, vomiting Genitourinary: Reports: urgency, frequency, hematuria. Denies: dysuria, testicular pain, testicular mass Musculoskeletal: Denies: back pain Integumentary: Denies: rash Neurological: Denies: headache, weakness, numbness, confusion Psychiatric: Denies: anxiety Past Medical History - Past Medical History Attestation: Yes The following information was validated with the patient. Source: patient Medical history: Reports: arthritis, CHF, coronary artery disease, dementia, diabetes, hyperlipidemia, hypertension, myocardial infarction, peripheral artery disease, renal disease, thyroid disease, other Surgical history: Reports: angioplasty/stent Psychiatric history: Reports: bipolar, depression, PTSD - Social History Smoking Status: Former smoker Smokeless Tobacco Status: No Alcohol use: Reports: none Drug use: Reports: none Physical Exam - General Limitations: no limitations General appearance: alert - Head Head exam: atraumatic, normocephalic, normal inspection - Eye Eye exam: Present: normal appearance, PERRL, EOMI - ENT ENT exam: normal exam, normal oropharynx, mucous membranes moist - Neck Neck exam: Present: normal inspection, full ROM, trachea midline - Chest Chest inspection: Present: normal inspection, symmetric chest wall rise - Respiratory Respiratory exam: Present: other (Patient with crackles to the bases bilaterally, no wheezes, prolonged expiratory phase) - Cardiovascular Cardiovascular exam: Present: regular rate, normal rhythm, normal heart sounds - Abdominal Exam Abdominal exam: Present: soft, Non-Tender. Absent: tenderness, distention, guarding, rebound, rigidity - Extremities Exam Extremities exam: Present: normal capillary refill, pedal edema (1-2+ pedal pitting edema, does have MIRA hose on). Absent: calf tenderness - Expanded Lower Extremity Exam Neurovascular/Tendon exam: Present: normal capillary refill - Neurological Exam Neurological exam: Present: alert, oriented X3 - Psychiatric Psychiatric exam: Present: normal affect, normal mood - Skin Skin exam: Present: warm, dry, intact, normal color. Absent: rash, diaphoresis Course Vital Signs Temperature 97.4 F L 09/10/18 18:26 Pulse Rate 57 09/10/18 18:26 Respiratory Rate 14 09/10/18 18:26 Blood Pressure 146/66 09/10/18 18:26 O2 Sat by Pulse Oximetry 98 09/10/18 18:26 Temperature 97.4 F L 09/10/18 18:26 Pulse Rate 57 09/10/18 18:26 Respiratory Rate 14 09/10/18 18:26 Blood Pressure 146/66 09/10/18 18:26 O2 Sat by Pulse Oximetry 98 09/10/18 18:26 Oxygen Delivery Oxygen Delivery Room Air Medical Decision Making - MDM Narrative Medical decision making narrative: Patient is a 73-year-old male presenting with increasing shortness of breath as well as urinary changes. Patient was seen by nephrology earlier today, noted to have increased fluid retention over the past couple of weeks, told to go to the [facility] for further evaluation. While at the [facility], patient had blood work performed as well as a chest x-ray. Blood work showed potassium of 5.0, serum creatinine of 5.15, with a baseline around 2.2, chest x-ray did show pulmonary vacular edema consistent with fluid overload, urinalysis showed turbid red urine with large occult blood with positive leuk esterase, negative nitrite with many WBC and bacteria. He was given 1 dose of Rocephin while at the [facility]. Patient with WBC of 4.2, RBC of 2.73, hemoglobin of 8.5, hematocrit of 25.1. Patient has remained stable while here in the ER. EKG shows normal sinus rhythm without ST segment or T-wave changes. I did speak with on-call train operations supervisor, Dr. Kennedy, who is aware that the patient will be coming most likely needing dialysis. I did perfo rm a bedside ultrasound, which showed minimal urine retention, also a penile implant. He states he will see the patient tomorrow morning. Patient agrees with admission at this point in time, will call hospitalist. - Medical Records Medical records reviewed: Yes I reviewed the patient's medical records. - Lab Data Lab results reviewed: Yes I reviewed the patient's lab results. - Radiology Data Radiology results reviewed: Yes I reviewed the patient's radiology results. - EKG Data EKG #1 EKG attestation: Yes I reviewed and interpreted this EKG. EKG results narrative: EKG performed at 1848 with ventricular rate of 57, regular rhythm, normal axis, no ST segment elevation or depression. Over all sinus rhythm EKG S.B.A.R. - S.B.A.R. Situation: Demographics, MOA Background: Presenting Complaint, Relevant PMH, Meds, & Allergies Assessment: Vital Signs, Course and respsone to treatment, Exam Concerns, Patient/Family Expectation, Pertinant Lab Results, Outstanding Labs Recommendation: Barrier(s) to disposition, Recommendation based on pending studies, treatments, or consults S.B.A.R. Report Given to: Dr. Lal [email or web address] Repor Time: 19:25 (accepted)
[2018-09-10] MEDS ORDERED: Dextrose Gel 15 GM/37.5 ML TUBE PO PRN ×2 (22:31)
[2018-09-10] MEDS ORDERED: D5% in Water 1,000 ML IVC PRN (22:31)
[2018-09-10] MEDS ORDERED: *HR* Dextrose 50 % in Water (Syg) 50 ML SYRINGE IVP PRN (22:31)
[2018-09-10] MEDS ORDERED: Naloxone 0.4 MG/ML INJ IVP PRN (22:31)
--- NOTE | 2018-09-10 22:48 | Internal Med History&Physical ---
Date of Encounter: 09/10/18 Time of Encounter: 21:00 Internal Medicine - H&P: HPI Chief complaint: SOB; edema; dysuria; hematuria Admitted From: Emergency Dept Plans for Post Hospital Care: Home History of present illness: Mr. Sandoval is a 73 year old male who was seen at the [facility] urgent care today for concerns of shortness of breath, diffuse edema, dysuria, and hematuria. He had routine labs and x-rays performed concerning for end-stage renal disease, CHF, and possible hemorrhagic cystitis. He was then sent to our ER and was admitted to the hospitalist service. There were no labs or treatments rendered in the ER , as he had just had labs performed at the urgent care at the [facility]. Upon my assessment of the patient in the ER, patient is resting in bed comfortably. However, he confirms having significant dyspnea, profound edema, orthopnea, paroxysmal nocturnal dyspnea, decreased urine output, dysuria, and hematuria. Symptoms started over the last several weeks. His urinary symptoms started over the last couple days. He denies any fevers, chills, or night sweats. He does have CKD stage V. He was on dialysis for a short-term and that was stopped about a year ago. However, his renal function has declined since then. His last creatinine here was in April, which was 2.98. At the [facility] urgent care today, his creatinine was 5.15. ER staff contacted Dr. Montes for consultation and possible initiation of hemodialysis tomorrow. Past Med Surg Social Fam HX - Past Medical History Attestation: Yes The following information was validated with the patient. Source: patient, old records reviewed, other [facility] Medical history: arthritis, CHF, coronary artery disease, dementia, diabetes, hyperlipidemia, hypertension, myocardial infarction, peripheral artery disease, renal disease, thyroid disease, other Additional medical history: gout Psychiatric history: bipolar, depression, PTSD - Past Surgical History Surgical History: angioplasty/stent Additional surgical history: penile implant - Social History Smoking Status: Former smoker Smokeless Tobacco Status: No Alcohol use: none Drug use: none Current living situation: Home, With Family Activity Level: Independent ambulation Recent Out of Country Travel Within the Last 8 Weeks: No - Family History Father Living Status: Hx Family Cardiac Disorders: Yes Internal Medicine - H&P: Meds Allopurinol [Zyloprim 100 MG] 100 mg PO DAILY 01/15/16 [History] Furosemide [Lasix] 40 mg PO BID 01/15/16 [History] Gabapentin [Neurontin] 400 mg PO BID 01/15/16 [History] Insulin Glargine,Hum.rec.anlog [Lantus Solostar] 20 unit SQ QAM 01/15/16 [History] Insulin Glargine,Hum.rec.anlog [Lantus Solostar] 65 unit SQ HS 01/15/16 [History] Pravastatin Sodium [Pravachol] 40 mg PO HS 01/15/16 [History] Levothyroxine [Synthroid] 25 mcg PO 0630 #30 tablet 02/27/16 [Rx] Cholecalciferol (D-3) [Vitamin D] 2,000 unit PO DAILY 02/07/17 [History] Dextrose [Glucose] 8 gm PO AD PRN 02/07/17 [History] Diltiazem HCl [Diltiazem 24Hr Cd] 120 mg PO DAILY 02/07/17 [History] Insulin ASPART [Novolog Flexpen] 15 unit SQ TIDWM 02/07/17 [History] Metoprolol XL (24 HR) Succ [Toprol Xl] 12.5 mg PO DAILY 02/07/17 [History] Sildenafil Citrate [Viagra] 50 mg PO AD PRN 02/07/17 [History] hydrALAZINE [HydrALAZINE] 25 mg PO Q8HR 30 Days tablet 02/08/17 [Rx] Allergy/AdvReac Type Severity Reaction Status Date / Time niacin Allergy Unknown unknown Verified 09/10/18 22:25 atorvastatin [From Lipitor] AdvReac Unknown stomach Verified 09/10/18 22:25 pain simvastatin [From Zocor] AdvReac Unknown stomach Verified 09/10/18 22:25 pain - Constitutional Constitutional: weight gain, no chills, no fever(s), no night sweats - EENT Eyes: no blurry vision, no change in vision Ears: no ear pain, no tinnitus Nose, mouth and throat: no nasal congestion, no sinus pressure, no sore throat - Cardiovascular Cardiovascular ROS IM: dyspnea, dyspnea on exertion, edema, orthopnea, paroxysmal nocturnal dyspnea, no chest pain, no lightheadedness, no syncope - Respiratory Respiratory: no cough, no hemoptysis, no chest congestion, no excessive phlegm production - Gastrointestinal Gastrointestinal: bloating, early satiety, nausea, no abdominal pain, no hematemesis, no hematochezia, no melena, no vomiting - Genitourinary Genitourinary ROS male: dysuria, hematuria, urinary frequency, urinary urgency, no flank pain - Musculoskeletal Musculoskeletal ROS IM: no arthralgias, no back pain - Integumentary Integumentary IM: no rash, no jaundice - Neurological Neurological ROS: no dizziness, no focal weakness, no frequent falls, no headache(s) - Psychiatric Psychiatric: no anxiety, no depression - Endocrine Endocrine IM: no polydipsia, no polyuria - Allergic/Immunologic Allergic/Immunologic: no GI upset with certain foods - Constitutional Vitals: Temp Pulse Resp BP Pulse Ox 97.6 F 60 17 148/66 92 09/10/18 22:17 09/10/18 22:17 09/10/18 22:17 09/10/18 22:17 09/10/18 22:17 General appearance: Present: cooperative, mild distress, A&O X 3, pleasant, answers questions appropriately Exam: see below - Head Head exam: Present: atraumatic, normal inspection - Eye Eye exam: Present: EOMI, PERRL. Absent: scleral icterus Pupils: Present: normal accommodation - ENT ENT exam: Present: mucous membranes dry, normal exam, normal oropharynx - Neck Neck exam general surgery: Present: full ROM, supple, trachea midline. Absent: tenderness, nuchal rigidity, thyromegaly - Respiratory Respiratory exam: Present: decreased breath sounds, rales (both bases about 1/[address] way up), respiratory distress (mild), tachypnea. Absent: accessory muscle use, chest wall tenderness, rhonchi, wheezes - Cardiovascular Cardiovascular exam: Present: distant heart sounds, RRR, +S1, +S2. Absent: diastolic murmur, systolic murmur - GI/Abdominal GI/Abdominal exam: Present: distended, normal bowel sounds. Absent: guarding, mass, rebound, tenderness Additional comments: distended; edema to lower abdomen - Extremities Exam Extremities exam: Present: full ROM, normal capillary refill, pedal edema (3-4+ up to abdomen), warm, radial pulses palpable and symmetrical. Absent: calf tenderness, tenderness - Back Exam Back exam: Absent: CVA tenderness (L), CVA tenderness (R) - Neurological Exam Neurological exam: Present: alert, CN II-XII intact, oriented X3, no focal deficits, strengths equal and symetr throughout - Psychiatric Psychiatric exam: Present: normal affect, normal mood - Skin Skin exam: Present: dry, intact, warm Internal Med - H&P Results - Labs Labs: I reviewed his labs from the [facility] urgent care and include the following: WBC 4.2 Hemoglobin 8.5 Hematocrit 25.1 Platelets 66 Sodium 139 Potassium 5.0 Chloride 106 Carbon dioxide 22 Glucose 149 BUN 137 Creatinine 5.15 Urinalysis with large amount of blood and positive leukocyte esterase, TNTC white blood cells and red blood cells Chest x-ray performed there reveals cardiomegaly with pulmonary vascular congestion and small pleural effusions - Assessment and plan (1) CHF (congestive heart failure) Current Visit: Yes Status: Acute Assessment and plan: 1. Will start patient on low dose lasix drip, monitor I/O, and respiratory symptoms. 2. Will order ECHO to assess LV function. 3. Patient will likely need hemodialysis. 4. Will place on fluid restriction. 5. Will trend troponins. 6. Oxygen and BiPap as needed for respiratory support. Qualifiers: Heart failure type: unspecified Heart failure chronicity: acute Qualified Code(s): I50.9 - Heart failure, unspecified (2) Acute kidney failure Current Visit: Yes Status: Acute Assessment and plan: 1. Dr. Montes consulted through ER. 2. Will order renal ultrasound. 3. Avoid nephrotoxins. 4. Will likely need HD as before. Qualifiers: Acute renal failure type: unspecified Qualified Code(s): N17.9 - Acute kidney failure, unspecified (3) UTI (urinary tract infection) Current Visit: Yes Status: Suspected Assessment and plan: 1. Will order U/A with reflex micro culture. 2. Will treat with Rocephin empirically until culture results available. Qualifiers: Urinary tract infection type: acute cystitis Hematuria presence: with hematuria Qualified Code(s): N30.01 - Acute cystitis with hematuria (4) IDDM (insulin dependent diabetes mellitus) Current Visit: Yes Status: Chronic Assessment and plan: 1. Will start low dose basal insulin and SSI. 2. Need to verify home meds. 3. Adjust insulin as necessary for glucose control. (5) DVT prophylaxis Current Visit: Yes Status: Acute Assessment and plan: 1. EPCD's. 2. Avoid anti-coagulation for now due to reported hematuria. Pharmacologic prophylaxis to be revisited as hospitalization progresses.
[2018-09-10 23:20] LABS: Estimated Average Glucose 163 mg/dl; Hemoglobin A1C 7.3 %
[2018-09-10] MEDS: Insulin LISPRO 300 UNITS/3 ML VIAL SQ SCH (23:24)
[2018-09-10 23:26] LABS: INR 1.3; Prothrombin Time 14.6 Seconds (9.4-12.1)
[2018-09-10 23:29] LABS: Activated Partial Thrombo Time 36.6 Seconds (26.0-36.0)
[2018-09-10] MEDS: cefTRIAXone 1,000 MG in Water for inj. (sterile) 20 ML 10 ML IVP SCH (23:29)
[2018-09-10] MEDS: Furosemide 240 MG in D5% in Water 96 ML IVC SCH (23:56)
[2018-09-11 02:07] LABS: Bilirubin,Urine Negative (Negative); Blood,Urine Large (Negative); Clarity,Urine Cloudy (Clear); Color,Urine Dark Yellow (Yellow); Glucose,Urine (UA) Normal (Normal); Ketones,Urine Negative (Negative); Leukocyte Esterase,Urine Small (Negative); Nitrite,Urine Negative (Negative); PH,Urine 5.5 pH Units (5.0-8.0); Protein,Urine 100 mg/dL (Neg-Trace); Urobilinogen,Urine Normal (Normal)
[2018-09-11 02:10] LABS: Bacteria,Urine None Seen per hpf (None-Few); Hyaline Casts,Urine None Seen per lpf (None-Few); Squamous Epithelial Cell,Urine Moderate per lpf (None-Few)
[2018-09-11 05:10] LABS: Eosinophils % 3.4 %; Immature Granulocytes % 0.3 % (0-4); Monocytes % 11.1 %; Red Cell Distribution Width 13.6 % (11.5-14.5)
[2018-09-11 05:12] LABS: Basophils % 0.3 %; Eosinophils # 0.1 K/mcL (0.0-0.6); Hematocrit 23.7 % (37.5-50.1); Hemoglobin 7.7 g/dL (12.9-16.9); Lymphocytes # 0.5 K/mcL (0.6-4.6); Lymphocytes % 16.4 %; Mean Corpuscular HGB Conc 32.5 g/dL (31.6-35.5); Mean Corpuscular Hemoglobin 30.2 pg (28.0-33.3); Mean Corpuscular Volume 92.9 fL (83.0-100.0); Mean Platelet Volume 12.1 fL (9.4-12.4); Monocytes # 0.3 K/mcL (0.0-1.3); Red Blood Count 2.55 M/mcL (4.19-5.50); Segmented Neutrophils % 68.5 %
[2018-09-11 05:33] LABS: Alanine Aminotransferase 9 Units/L (7-52); Albumin 3.4 g/dL (3.5-5.7); Albumin/Globulin Ratio 1.1 (1.1-2.2); Alkaline Phosphatase 56 Units/L (34-104); Aspartate Amino Transferase 14 Units/L (13-39); Bilirubin,Total 0.4 mg/dL (0.3-1.0); Blood Urea Nitrogen > 130 mg/dL (8-23); Calcium 8.8 mg/dL (8.6-10.3); Carbon Dioxide 23 mEq/L (23-29); Chloride 108 mEq/L (98-107); Chol/HDL Ratio 4.3 (0-4.9); Cholesterol 141 mg/dL (< 200); Globulin 3.2 g/dL (2.4-3.5); Glucose 214 mg/dL (70-105); HDL Cholesterol 33 mg/dL (40-59); LDL Cholesterol,Calculated 89 mg/dL (0-99); Magnesium 2.6 mg/dL (1.6-2.6); Potassium 4.9 mEq/L (3.5-5.1); Sodium 140 mEq/L (136-145); Total Protein 6.6 g/dL (6.4-8.9); Triglycerides 96 mg/dL (< 150); eGFR For Non-African Americans 12 (> 60)
[2018-09-11 05:41] LABS: Neutrophils # 2.1 K/mcL (1.6-8.9); Platelet Count 58 K/mcL (140-400)
[2018-09-11] MEDS: Insulin LISPRO 300 UNITS/3 ML VIAL SQ SCH ×4 (08:59→20:54)
[2018-09-11] MEDS: Insulin DETEMIR 100 UNIT/ML X5UNITS SQ SCH ×2 (09:00→22:22)
[2018-09-11] MEDS: Acetaminophen 325 MG TABLET PO PRN (09:11)
[2018-09-11 09:56] LABS: Anisocytosis 1+ (Not Present); Platelet Estimate Decreased (Normal)
--- NOTE | 2018-09-11 10:20 | Nephrology Consult Note ---
Date of Encounter: 09/11/18 Time of Encounter: 10:16 Assessment and Plan (1) Acute kidney injury superimposed on chronic kidney disease Current Visit: Yes Status: Acute Patient has a history of stroke chronic kidney disease stage IV and was previously followed by QIAN Almonte. He presents with dyspnea and worsening renal function. The patient has been on dialysis in the past, however, he does not have a permanent access placed. The patient is agreeable to dialysis along with placement of a temporary dialysis catheter. Patient has volume overload and significant elevation of his BUN and thus we will initiate urgent dialysis today. Interventional radiology has been consult and for a temporary dialysis catheter. At this time I am unsure as to whether he has progressed to end-stage renal disease, or has acute kidney injury superimposed on chronic kidney disease. Avoid nephrotoxic agents and titrate medications as needed for renal function. (2) CHF (congestive heart failure) Current Visit: Yes Status: Acute Patient is on Lasix drip. We will perform dialysis and ultrafiltration today. Qualifiers: Heart failure type: unspecified Heart failure chronicity: acute Qualified Code(s): I50.9 - Heart failure, unspecified (3) UTI (urinary tract infection) Current Visit: Yes Status: Suspected Patient is on antibiotics. Await culture data. Qualifiers: Urinary tract infection type: acute cystitis Hematuria presence: with hematuria Qualified Code(s): N30.01 - Acute cystitis with hematuria (4) Anemia Current Visit: No Status: Chronic Check iron stores, vitamin B12, and folate levels. Qualifiers: Qualified Code(s): D64.9 - Anemia, unspecified (5) Diabetes mellitus Current Visit: No Status: Chronic Per primary team. Qualifiers: Diabetes mellitus type: type 2 Diabetes mellitus usp insulin use: wi th supervisor intermediates use Diabetes mellitus complication status: with kidney compl ications Diabetes mellitus complication detail: with chronic kidney disease Chronic kidney disease stage: stage 3 (moderate) Qualified Code(s): E11.22 - Type 2 diabetes mellitus with diabetic chronic kidney disease; N18.3 - Chronic kidney disease, stage 3 (moderate); Z79.4 - intermediate frame tender (current) use of insulin (6) HTN (hypertension) Current Visit: No Status: Chronic Titrate antihypertensive medication as needed. Qualifiers: Hypertension type: essential hypertension Qualified Code(s): I10 - Essential (primary) hypertension History of Present Illness - Reason for Consult Consult date: 09/11/18 Acute Kidney Injury, Chronic Kidney Disease - Chief Complaint BUCKY on CKD - History of Present Illness Mr. Sandoval is a 73 yo man with a history of CKD Stage 4 followed by QIAN Morales who presents from the [place] where he presented with dyspnea. The patient denies active chest pain, but has not felt well recently. History was obtained from the electronic chart along with history from the patient. At the time of my evaluation the patient denies nausea, vomiting, diarrhea. His breathing is mildly improved, but he is still dyspneic. He is agreeable to dialysis and reports that last time he saw QIAN Almonte he was told he would likely need dialysis soon. Past Med Surg Social Fam HX - Past Medical History Medical history: arthritis, CHF, coronary artery disease, dementia, diabetes, hyperlipidemia, hypertension, myocardial infarction, peripheral artery disease, renal disease, thyroid disease, other Additional medical history: gout Psychiatric history: bipolar, depression, PTSD - Past Surgical History Surgical History: angioplasty/stent Additional surgical history: penile implant - Social History Smoking Status: Former smoker Smokeless Tobacco Status: No Alcohol use: none Drug use: none - Family History Father Living Status: Hx Family Cardiac Disorders: Yes Medications and Allergies Insulin Glargine,Hum.rec.anlog [Lantus Solostar] 40 unit SQ HS 01/15/16 [History] Albuterol Sulfate [Proair Hfa] 2 puff IH Q4H PRN 09/10/18 [History] Allopurinol [Zyloprim] 300 mg PO DAILY 09/10/18 [History] Budesonide/Formoterol 80/4.5 [Symbicort 80/4.5] 2 puff IH BIDR 09/10/18 [History] Calcitriol [Rocaltrol] 0.25 mcg PO DAILY 09/10/18 [History] Calcium Acetate [Phos-LO] 667 mg PO TIDWM 09/10/18 [History] Carvedilol [Coreg] 25 mg PO BID 09/10/18 [History] Ferrous Gluconate 324 mg PO BID 09/10/18 [History] Furosemide [Lasix] 80 mg PO BID 09/10/18 [History] Gabapentin [Neurontin] 300 mg PO BID 09/10/18 [History] Hydralazine HCl 50 mg PO TID 09/10/18 [History] Insulin ASPART [Novolog Flexpen] 18 unit SQ TIDWM 09/10/18 [History] Ipratropium [place] 1 spr NS BID 09/10/18 [History] Isosorbide MONOnitrate (24 HR) [Imdur] 30 mg PO DAILY 09/10/18 [History] Methocarbamol [Robaxin] 500 mg PO Q8HR PRN 09/10/18 [History] Pantoprazole Sodium [Protonix] 40 mg PO DAILY 09/10/18 [History] Pravastatin Sodium [Pravachol] 40 mg PO HS 09/10/18 [History] Ranolazine [Ranexa] 500 mg PO BID 09/10/18 [History] Tiotropium [Spiriva] 18 mcg IH 0700 09/10/18 [History] amLODIPine [Norvasc] 5 mg PO DAILY 09/10/18 [History] traZODone [TraZODone] 50 mg PO HS PRN 09/10/18 [History] Allergy/AdvReac Type Severity Reaction Status Date / Time niacin Allergy Unknown unknown Verified 09/10/18 22:25 atorvastatin [From Lipitor] AdvReac Unknown stomach Verified 09/10/18 22:25 pain simvastatin [From Zocor] AdvReac Unknown stomach Verified 09/10/18 22:25 pain Review of Systems All Systems: reviewed and no additional remarkable complaints except as stated (as per hpi) Exam - Vital Signs Vital signs: Initial Vital Signs Temp Pulse Resp BP Pulse Ox 97.4 F L 57 14 146/66 98 09/10/18 18:26 09/10/18 18:26 09/10/18 18:26 09/10/18 18:26 09/10/18 18:26 Vital Signs - Last 8 Hours Temp Pulse Resp BP Pulse Ox 09/11/18 09:32 97.9 F 61 18 162/64 94 09/11/18 09:22 94 09/11/18 05:55 98.4 F 72 17 136/60 94 Intake and Output 09/10/18 09/11/18 09/11/18 23:59 07:59 15:59 Intake Total 120 / 120 Output Total 425 / 425 250 / 250 Balance -425 / -425 -130 / -130 Intake: IV Fluids Rocephin 1,000 MG In Water for inj. (sterile) 10 ML @ 600 mls/ hr IVP Q[facility] Rx#:[id number] Oral 120 / 120 Output: Urine 425 / 425 250 / 250 Other: Meal Breakfast Percent of Meal Consumed 90% Weight 124.284 kg 124.3 kg Blood Glucose* 113 164 Patient Weight 09/11/18 23:59 Weight 124.3 kg - General Appearance General appearance: well-developed, well-nourished, obese EENT: ATNC Neck: supple Respiratory: rales Cardiology: edema, regular rate, regular rhythm Gastrointestinal: normoactive bowel sounds, no tenderness, obese Integumentary: warm and dry Neurologic: alert and oriented x3 Musculoskeletal: no cyanosis Psychiatric: mood/affect appropriate Results - Lab Results 09/11/18 04:50 09/11/18 04:50 Most recent lab results Calcium 8.8 mg/dL (8.6-10.3) 09/11/18 04:50 Phosphorus 6.0 mg/dL (2.7-4.5) H 09/11/18 04:50 Magnesium 2.6 mg/dL (1.6-2.6) 09/11/18 04:50 Consult Discharge Plan - Plan [facility]errals: [facility] [Primary Care Provider[facility] -
[2018-09-11] MEDS ORDERED: 0.9 % Sodium Chloride 250 ML IVC PRN (10:32)
[2018-09-11 12:59] LABS: Hepatitis B Surface Antibody < 3.10 mIU/mL
[2018-09-11 13:10] LABS: Hepatitis B Surface Antigen Nonreactive (Nonreactive)
--- NOTE | 2018-09-11 13:15 | Internal Med Progress Note ---
Hospitalist Progress Note - Encounter Date of Encounter: 09/11/18 Time of Encounter: 13:13 - Subjective Interval History: I have seen and evaluated patient at bedside. Reports shortness of breath, denies chest pain. Reports giancarlo hematuria with some blood clots since Friday. Denies abdominal pain. - Exam Vitals: Temp Pulse Resp BP Pulse Ox 98.8 F 70 18 163/65 92 09/11/18 11:34 09/11/18 11:34 09/11/18 11:34 09/11/18 11:34 09/11/18 11:34 Exam: Vitals: Reviewed. General: Alert and oriented x4. In mild distress due to shortness of breath. Skin: Normal color, no rash, no lesions. HEENT: EOM, pupils equal, round and reactive. Cardiovascular: RRR, normal S1 & S2, no rubs, murmurs or gallops. Lungs: bilateral basillary crackles. no wheezes Abdomen: Obese, soft, non-tender, no rigidity. Extremities: 2+ pitting edema in the lower extr b/l. Neurological: Normal cognition and motor skills. Rest of the physical exam is non contributory - Assessment and Plan (1) Acute kidney failure Current Visit: Yes Status: Acute Assessment and Plan: BUCKY on CKD associated with volume overload. Nephrology consulted. Patient agreed to start renal replacement therapy. avoid nephrotoxic agents. Nephro recommendations appreciated. (2) CHF (congestive heart failure) Current Visit: Yes Status: Acute Assessment and Plan: patient with 2+ pitting edema on the lower extr b/l, plus crackles at both lung bases. Plan Patient on a furosemide drip, Fluid restriction to 1.5 L today. Daily weight plus a strict intake and output. Continue isosorbide 30 mg by mouth daily. will resume carvedilol at a lower dose. (3) UTI (urinary tract infection) Current Visit: Yes Status: Acute Assessment and Plan: Continue ceftriaxone 1 g IV daily. Pending urine culture and sensitivity. (4) IDDM (insulin dependent diabetes mellitus) Current Visit: Yes Status: Chronic Assessment and Plan: Sugar is well controlled. Continue Levemir 15 units twice a day, plus lispro low-dose sliding scale before meals. (5) Anemia Current Visit: Yes Status: Chronic Assessment and Plan: Significant drop in H&H from 04/21 from 10.1 to 7.7. Multifactorial possible due to CKD vs hematuria r/o GI bleeding. Type and screen transfuse 2 units during HD today Iron panel FOBT (6) HTN (hypertension) Current Visit: No Status: Chronic Assessment and Plan: Blood pressures well controlled. Patient on Lasix drip. On low-dose beta jesse. (7) Thrombocytopenia Current Visit: No Status: Chronic Assessment and Plan: Likely secondary to splenomegaly seen on CT on May. (8) CAD (coronary artery disease) Current Visit: Yes Status: Chronic Assessment and Plan: Continue Ranexa 500 mg by mouth twice a day. (9) COPD (chronic obstructive pulmonary disease) Current Visit: Yes Status: Chronic Assessment and Plan: Not an acute exacerbation. Bronchodilators when necessary. Continue Symbicort and Spiriva. DVT Prophylaxis: No chemical DVT prophylaxis due to hematuria. Intermittent pneumatic co mpression for DVT prophylaxis. - Summary of Assessment and Plan Summary of Assessment and Plan: Patient to remain in the hospital due to BUCKY/CKD scheduled for HD today. CHF exacerbation on a furosemide drip. - Time Spent with Patient Total time spent is greater than 50% in coordination of care (as documented) at patient's floor/unit and/or counseling patient: Greater than 35 minutes (45) Plan of Care Discussed with: patient (his and the nurse.) Internal Medicine: Result - Labs CBC & Chem 7: 09/11/18 04:50 09/11/18 04:50 Labs: Short CBC 09/11/18 Range/Units 04:50 WBC 3.0 L (4.3-11.1) K/mcL Hgb 7.7 L (12.9-16.9) g/dL Hct 23.7 L (37.5-50.1) % Plt Count 58 L (140-400) K/mcL Neutrophils # 2.1 (1.6-8.9) K/mcL BMP 09/11/18 04:50 Sodium 140 Potassium 4.9 Chloride 108 H Carbon Dioxide 23 BUN > 130 H Creatinine 4.78 H Glucose 214 H Calcium 8.8 Cardiac Enzymes 09/10/18 09/11/18 09/11/18 Range/Units 23:07 04:50 11:22 Troponin I < 0.03 < 0.03 < 0.03 (< 0.04) ng/mL Liver Function 09/11/18 Range/Units 04:50 Total Bilirubin 0.4 (0.3-1.0) mg/dL AST 14 (13-39) Units/L ALT 9 (7-52) Units/L Alkaline Phosphatase 56 (34-104) Units/L Albumin 3.4 L (3.5-5.7) g/dL Urine 09/11/18 Range/Units 01:55 Urine Color Dark Yellow (Yellow) Urine Clarity Cloudy A (Clear) Urine pH 5.5 (5.0-8.0) pH Units Ur Specific [place] 1.010 (1.010-1.025) Urine Protein 100 H (Neg-Trace) mg/dL Urine Glucose (UA) Normal (Normal) mg/dL - ABG Interpretation ABG results: PT/INR, D-dimer PT 14.6 Seconds (9.4-12.1) H 09/10/18 23:07 - Impressions Impressions Chest X-Ray 09/10/18 22:39 IMPRESSION: Congestive heart failure D/ / Luis Eduardo Helms MD / Luis Eduardo Helms MD Interpreting Provider: Luis Eduardo Helms MD Echocardiogram 09/11/18 22:31 Impressions: Technically sub-optimal due to body habitus. LVEF 60%. Normal LV chamber size and function. Mild concentric left ventricular hypertrophy. Moderate left ventricular diastolic dysfunction. Right ventricle was not well visualized. Function appears grossly normal. Severely bi-atrial enlargement. Moderate pulmonary hypertension. Estimated RVSP is 43-48 mmHg. No obvious significant valvular dysfunction. Findings: Study Quality * Technically sub-optimal due to body habitus. ECG Findings * Normal sinus rhythm. Left Ventricle * LVEF 60%. * Normal LV chamber size and function. * Mild concentric left ventricular hypertrophy. * Moderate left ventricular diastolic dysfunction. Right Ventricle * Right ventricle was not well visualized. Function appears grossly normal. Left Atrium * Severely dilated left atrium. Right Atrium * Severely dilated right atrium. Aortic Valve * Aortic valve not well visualized. * Mildly sclerotic aortic valve leaflets. * No aortic regurgitation. * No aortic stenosis. Mitral Valve * Normal mitral valve structure and function. * Trace mitral regurgitation. * No mitral stenosis. Tricuspid Valve * Normal tricuspid valve structure and function. * Trace tricuspid regurgitation. * Moderate pulmonary hypertension. * Estimated RVSP is 43-48 mmHg. * Estimated RA pressure is 10-15 mmHg. Pulmonic Valve * Pulmonic valve not well visualized. Aorta * Normally sized aortic root. Pericardium * The pericardium appears normal. IVC * The IVC is dilated. * < 50% respiratory change. Pulmonary Artery * Pulmonary artery not well visualized. Consult Discharge Plan - Plan [facility]errals: [facility] [Primary Care Provider] - (Patient will more than likely be here for a few days. Possibly starting on HD) (1) Acute kidney failure Qualifiers: Acute renal failure type: unspecified Qualified Code(s): N17.9 - Acute kidney failure, unspecified (2) CHF (congestive heart failure) Qualifiers: Heart failure type: diastolic Heart failure chronicity: acute Qualified Code(s): I50.31 - Acute diastolic (congestive) heart failure (3) UTI (urinary tract infection) Qualifiers: Urinary tract infection type: acute cystitis Hematuria presence: with hematuria Qualified Code(s): N30.01 - Acute cystitis with hematuria (5) Anemia Qualifiers: Anemia type: unspecified type Qualified Code(s): D64.9 - Anemia, unspecified (6) HTN (hypertension) Qualifiers: Hypertension type: essential hypertension Qualified Code(s): I10 - Essential (primary) hypertension (8) CAD (coronary artery disease) Qualifiers: Coronary Disease-Associated Artery/Lesion type: unspecified vessel or lesion type [place] vs. transplanted heart: unspecified whether [place] or transplanted heart Associated angina: angina presence unspecified Qualified Code(s): I25.10 - Atherosclerotic heart disease of [place] coronary artery without angina pectoris (9) COPD (chronic obstructive pulmonary disease) Qualifiers: COPD type: unspecified COPD Qualified Code(s): J44.9 - Chronic obstructive pulmonary disease, unspecified
[2018-09-11] MEDS ORDERED: Ipratropium/Albuterol Neb 3 ML IH PRN (13:31)
[2018-09-11] MEDS ORDERED: Heparin 1,000 UNITS/500 mL 500 ML ONE (14:00)
[2018-09-11] MEDS ORDERED: *HR* Heparin 5,000 UNIT/ML VIAL ONE (14:31)
--- NOTE | 2018-09-11 15:12 | IR Procedure Note ---
Date of procedure: 09/11/18 Consent Obtained: Verbal consent, Written consent Timeout: Correct patient and procedure verified, Correct site verified, Time out performed, Skin prep completed Local anesthetic: Lidocaine 1% Indications: Renal failure Procedure Performed: Temp HD catheter placement Was there an marketing assistant manager present: No Site/Technique: Right IJ Temp HD Catheter placed Results/Findings: Catheter in good position Estimated blood loss (cc): 1 Complications: None; Tolerated procedure well Post Procedure Treatment Plan: May use HD catheter now Specimen: None
--- NOTE | 2018-09-11 18:02 | Event Note ---
Date of Encounter: 09/11/18 Time of Encounter: 18:02 pt was in HD. will review CT scan and complete consult in the AM.
[2018-09-11 19:23] LABS: Mean Corpuscular Hemoglobin 30.1 pg (28.0-33.3)
[2018-09-11 19:24] LABS: Basophils % 0.3 %; Eosinophils # 0.1 K/mcL (0.0-0.6); Hematocrit 26.7 % (37.5-50.1); Hemoglobin 8.8 g/dL (12.9-16.9); Immature Granulocytes % 0.3 % (0-4); Immature Platelets 4.5 % (1.1-6.1); Lymphocytes # 0.6 K/mcL (0.6-4.6); Lymphocytes % 16.1 %; Mean Corpuscular Volume 91.4 fL (83.0-100.0); Mean Platelet Volume 11.8 fL (9.4-12.4); Monocytes # 0.4 K/mcL (0.0-1.3); Monocytes % 10.8 %; Neutrophils # 2.6 K/mcL (1.6-8.9); Red Blood Count 2.92 M/mcL (4.19-5.50); Red Cell Distribution Width 13.8 % (11.5-14.5); Segmented Neutrophils % 69.5 %
[2018-09-11 19:46] LABS: Platelet Count 65 K/mcL (140-400)
[2018-09-11] MEDS: cefTRIAXone 1,000 MG in Water for inj. (sterile) 20 ML 10 ML IVP SCH (22:21)
[2018-09-11] MEDS: Budesonide/Formoterol 80/4.5 MDI IH SCH (22:29)
[2018-09-11] MEDS: Furosemide 240 MG in D5% in Water 96 ML IVC SCH (22:32)
--- NOTE | 2018-09-12 04:23 | Event Note ---
Date of Encounter: 09/11/18 Time of Encounter: 19:50 Notified by nurse of patient having run of vfib per monitor car operator, however patient was moving to use urinal at same time and was likely artifact. EKG ordered showed sinus bradycardia with slightly prolonged QT interval. Patient asymptomatic. Vitals stable. Will continue cardiac monitoring. Nurse to notify of any changes.
[2018-09-12 05:54] LABS: Immature Granulocytes % 0.3 % (0-4); Mean Platelet Volume 11.5 fL (9.4-12.4); Red Cell Distribution Width 13.8 % (11.5-14.5)
[2018-09-12 05:55] LABS: Basophils % 0.7 %; Eosinophils # 0.1 K/mcL (0.0-0.6); Eosinophils % 4.1 %; Hematocrit 25.3 % (37.5-50.1); Hemoglobin 8.4 g/dL (12.9-16.9); Immature Platelets 4.7 % (1.1-6.1); Lymphocytes # 0.6 K/mcL (0.6-4.6); Lymphocytes % 18.2 %; Mean Corpuscular HGB Conc 33.2 g/dL (31.6-35.5); Mean Corpuscular Hemoglobin 30.5 pg (28.0-33.3); Monocytes # 0.3 K/mcL (0.0-1.3); Monocytes % 10.8 %; Red Blood Count 2.75 M/mcL (4.19-5.50); Segmented Neutrophils % 65.9 %
[2018-09-12 05:56] LABS: Platelet Count 57 K/mcL (140-400)
[2018-09-12 06:11] LABS: Protein/Creatinine Ratio,Urine 0.62 mg/mg (0.00-0.20)
[2018-09-12 06:15] LABS: Albumin 3.4 g/dL (3.5-5.7); Calcium 8.8 mg/dL (8.6-10.3); Phosphorous 4.9 mg/dL (2.7-4.5); Potassium 4.1 mEq/L (3.5-5.1)
[2018-09-12 06:40] LABS: Folate 8.1 ng/mL (3.0-16.0)
[2018-09-12] MEDS: Insulin LISPRO 300 UNITS/3 ML VIAL SQ SCH ×4 (07:12→19:37)
[2018-09-12] MEDS ORDERED: 0.9 % Sodium Chloride 250 ML IVC PRN (07:21)
[2018-09-12] MEDS ORDERED: *HR* Heparin 10,000 UNIT/10 ML VIAL IV PRN (07:21)
[2018-09-12] MEDS ORDERED: 0.9 % Sodium Chloride 1,000 ML PRIME SCH (07:30)
[2018-09-12] MEDS ORDERED: 0.9 % Sodium Chloride 1,000 ML ONE (08:31)
[2018-09-12] MEDS: Insulin DETEMIR 100 UNIT/ML X5UNITS SQ SCH ×2 (08:43→19:38)
[2018-09-12] MEDS: Isosorbide MONOnitrate (24 HR) 30 MG TAB.ER.24H PO SCH (08:44)
--- NOTE | 2018-09-12 08:48 | Urology - Consult Note ---
Date of Encounter: 09/12/18 Time of Encounter: 08:47 - Assessment and Plan (1) Gross hematuria Current Visit: Yes Status: Resolved Assessment and plan: At the time of my consult the gross hematuria has resolved. A number of poss ible etiologies for the gross hematuria exist including BPH, nonobstructing kidney stones, penile prosthesis erosion, malignancy, etc. I do not feel any intervention is required while the patient is in the hospital as the issue has resolved. My office will contact patient to schedule outpatient follow-up which will include a office cystoscopy for further evaluation. No need for new medications from urology standpoint. Limit anticoagulation if possible. Urology CN:HPI Consult date: 09/12/18 Reason for consult Urology: Gross Hematuria History of present illness: New patient to the urology service. Consult and for painless gross hematuria which has occurred over the last week or so. Currently admitted for CHF exacerbation. He states that the hematuria stopped yesterday. CT scan performed which did show bilateral nonobstructing renal stones. BPH. Partially distended bladder. Penile prosthesis in place. Follow-up renal ultrasound showed that his postvoid residual was on concerning at 58 mL. He admits to no difficulty urinating. He denies any previous history of gross hematuria. No dysuria Past Med Surg Social Fam HX - Past Medical History Medical history: arthritis, CHF, coronary artery disease, dementia, diabetes, hyperlipidemia, hypertension, myocardial infarction, peripheral artery disease, renal disease, thyroid disease, other Additional medical history: gout Psychiatric history: bipolar, depression, PTSD - Past Surgical History Surgical History: angioplasty/stent Additional surgical history: penile implant - Social History Smoking Status: Former smoker Smokeless Tobacco Status: No Alcohol use: none Drug use: none - Family History Father Living Status: Hx Family Cardiac Disorders: Yes Medications and Allergies Insulin Glargine,Hum.rec.anlog [Lantus Solostar] 40 unit SQ HS 01/15/16 [History] Albuterol Sulfate [Proair Hfa] 2 puff IH Q4H PRN 09/10/18 [History] Allopurinol [Zyloprim] 300 mg PO DAILY 09/10/18 [History] Budesonide/Formoterol 80/4.5 [Symbicort 80/4.5] 2 puff IH BIDR 09/10/18 [History] Calcitriol [Rocaltrol] 0.25 mcg PO DAILY 09/10/18 [History] Calcium Acetate [Phos-LO] 667 mg PO TIDWM 09/10/18 [History] Carvedilol [Coreg] 25 mg PO BID 09/10/18 [History] Ferrous Gluconate 324 mg PO BID 09/10/18 [History] Furosemide [Lasix] 80 mg PO BID 09/10/18 [History] Gabapentin [Neurontin] 300 mg PO BID 09/10/18 [History] Hydralazine HCl 50 mg PO TID 09/10/18 [History] Insulin ASPART [Novolog Flexpen] 18 unit SQ TIDWM 09/10/18 [History] Ipratropium [place] 1 spr NS BID 09/10/18 [History] Isosorbide MONOnitrate (24 HR) [Imdur] 30 mg PO DAILY 09/10/18 [History] Methocarbamol [Robaxin] 500 mg PO Q8HR PRN 09/10/18 [History] Pantoprazole Sodium [Protonix] 40 mg PO DAILY 09/10/18 [History] Pravastatin Sodium [Pravachol] 40 mg PO HS 09/10/18 [History] Ranolazine [Ranexa] 500 mg PO BID 09/10/18 [History] Tiotropium [Spiriva] 18 mcg IH 0700 09/10/18 [History] amLODIPine [Norvasc] 5 mg PO DAILY 09/10/18 [History] traZODone [TraZODone] 50 mg PO HS PRN 09/10/18 [History] Allergy/AdvReac Type Severity Reaction Status Date / Time niacin Allergy Unknown unknown Verified 09/10/18 22:25 atorvastatin [From Lipitor] AdvReac Unknown stomach Verified 09/10/18 22:25 pain simvastatin [From Zocor] AdvReac Unknown stomach Verified 09/10/18 22:25 pain Review of Systems - Constitutional fatigue, no chills, no fever(s) - EENT Nose, mouth and throat: no dizziness - Cardiovascular no chest pain - Respiratory no cough - Gastrointestinal no abdominal pain - Genitourinary hematuria - Musculoskeletal no back pain - Integumentary no erythema - Neurological no confusion - Psychiatric no anxiety - Hematologic/Lymphatic no easy bleeding - Allergic/Immunologic no throat swelling Exam Initial Vital Signs Temp Pulse Resp BP Pulse Ox 97.4 F L 57 14 146/66 98 09/10/18 18:26 09/10/18 18:26 09/10/18 18:26 09/10/18 18:26 09/10/18 18:26 - General physical appearance Present: well developed, no distress - Eyes Present: PERRL, conjunctiva is clear - ENT Present: normal nares - Neck Present: no masses, no lymphadenopathy - Respiratory Present: normal respiratory effort - Cardiovascular Cardiovascular exam IM: RRR - Abdomen Abdomen: Present: soft. Absent: suprapubic tenderness - Integumentary Present: no rash, no abnormal pigmentation - Neurologic Present: normal coordination. Absent: disoriented, confused - Additional Findings Voided urine is clear Urology Results - Labs 09/12/18 05:40 09/12/18 05:40 Abnormal lab results WBC 3.0 K/mcL (4.3-11.1) L 09/12/18 05:40 RBC 2.75 M/mcL (4.19-5.50) L 09/12/18 05:40 Hgb 8.4 g/dL (12.9-16.9) L 09/12/18 05:40 Hct 25.3 % (37.5-50.1) L 09/12/18 05:40 Plt Count 57 K/mcL (140-400) L 09/12/18 05:40 Platelet Estimate Decreased (Normal) L 09/11/18 04:50 Anisocytosis 1+ (Not Present) A 09/11/18 04:50 PT 14.6 Seconds (9.4-12.1) H 09/10/18 23:07 APTT 36.6 Seconds (26.0-36.0) H 09/10/18 23:07 BUN 94 mg/dL (8-23) H 09/12/18 05:40 Creatinine 3.54 mg/dL (0.70-1.30) H 09/12/18 05:40 Est GFR ( Amer) 21 (> 60) L 09/12/18 05:40 Est GFR (Non-Af Amer) 17 (> 60) L 09/12/18 05:40 BUN/Creatinine Ratio 27 (6-26) H 09/12/18 05:40 POC Glucose 105 mg/dL (70-99) H 09/11/18 20:50 Hemoglobin A1c 7.3 % (-5.6) H 09/10/18 23:07 Calculated Osmolality 321 (280-300) H 09/12/18 05:40 Phosphorus 4.9 mg/dL (2.7-4.5) H 09/12/18 05:40 Albumin 3.4 g/dL (3.5-5.7) L 09/12/18 05:40 HDL Cholesterol 33 mg/dL (40-59) L 09/11/18 04:50 PTH Intact 109.2 pg/ml (10.0-65.0) H 09/12/18 05:40 Urine Clarity Cloudy (Clear) A 09/11/18 01:55 Urine Protein 100 mg/dL (Neg-Trace) H 09/11/18 01:55 Urine Blood Large (Negative) H 09/11/18 01:55 Ur Leukocyte Esterase Small (Negative) H 09/11/18 01:55 Urine Microscopic RBC 5-15 per hpf (0-3) H 09/11/18 01:55 Urine Microscopic WBC 5-15 per hpf (0-3) H 09/11/18 01:55 Ur Squamous Epith Cells Moderate per lpf (None-Few) H 09/11/18 01:55 Ur Culture Indicated? YES (NO) A 09/11/18 01:55 Microalb/Creat Ratio 168 mcg/mg (Less than 30) H 09/12/18 05:25 Protein/Creatinin Ratio 0.62 mg/mg (0.00-0.20) H 09/12/18 05:25 Urine Total Protein 31 mg/dL (1-14) H 09/12/18 05:25 Hep Bs Antibody < 3.10 mIU/mL (10.00-) L 09/11/18 11:22 Diabetes panel 09/12/18 Range/Units 05:40 Sodium 141 (136-145) mEq/L Potassium 4.1 (3.5-5.1) mEq/L Chloride 107 (98-107) mEq/L Carbon Dioxide 27 (23-29) mEq/L BUN 94 H (8-23) mg/dL Creatinine 3.54 H (0.70-1.30) mg/dL Glucose 100 (70-105) mg/dL Calcium 8.8 (8.6-10.3) mg/dL Albumin 3.4 L (3.5-5.7) g/dL Calcium panel 09/12/18 Range/Units 05:40 Calcium 8.8 (8.6-10.3) mg/dL Phosphorus 4.9 H (2.7-4.5) mg/dL Albumin 3.4 L (3.5-5.7) g/dL Pituitary panel 09/12/18 Range/Units 05:40 Sodium 141 (136-145) mEq/L Potassium 4.1 (3.5-5.1) mEq/L Chloride 107 (98-107) mEq/L Carbon Dioxide 27 (23-29) mEq/L BUN 94 H (8-23) mg/dL Creatinine 3.54 H (0.70-1.30) mg/dL Glucose 100 (70-105) mg/dL Calcium 8.8 (8.6-10.3) mg/dL Adrenal panel 09/12/18 Range/Units 05:40 Sodium 141 (136-145) mEq/L Potassium 4.1 (3.5-5.1) mEq/L Chloride 107 (98-107) mEq/L Carbon Dioxide 27 (23-29) mEq/L BUN 94 H (8-23) mg/dL Creatinine 3.54 H (0.70-1.30) mg/dL Glucose 100 (70-105) mg/dL Calcium 8.8 (8.6-10.3) mg/dL Albumin 3.4 L (3.5-5.7) g/dL All other labs normal. Consult Discharge Plan - Plan Referrals: [facility] [Primary Care Provider] - (Patient will more than likely be here for a few days. Possibly starting on HD)
[2018-09-12] MEDS: Tiotropium 18 MCG inhalation IH SCH (10:25)
[2018-09-12] MEDS: Budesonide/Formoterol 80/4.5 MDI IH SCH ×2 (10:25→19:48)
--- NOTE | 2018-09-12 10:46 | Nephrology Progress Note ---
Date of Encounter: 09/13/18 Time of Encounter: 11:00 - Assessment and Plan (1) Acute kidney injury superimposed on chronic kidney disease Current Visit: Yes Status: Acute Scr improved at 3.54, GFR 21 with BUn at 94 after one HD session yesterday, should continue to improve after second session today UF goal of 3 kg today, got approx 3kg yesterday as well Not clear if renal fxn is ESRD at this time, will monitor for signs of renal recovery after today's HD Continue to avoid nephrotoxins if possible Lasix gtt not necessary, will dose intermittently as needed (2) Anemia Current Visit: No Status: Chronic Hgb fairly stable at 8.4, will monitor (3) CHF (congestive heart failure) Current Visit: Yes Status: Acute Improving with aggressive UF Strict I/Os advised Fluid restriction advised Qualifiers: Heart failure type: diastolic Heart failure chronicity: acute Qualified Code(s): I50.31 - Acute diastolic (congestive) heart failure (4) HTN (hypertension) Current Visit: No Status: Chronic BP readings in the 150-170s systolic range, should improve with more UF Qualifiers: Hypertension type: essential hypertension Qualified Code(s): I10 - Essential (primary) hypertension (5) Diabetes mellitus Current Visit: No Status: Chronic Qualifiers: Diabetes mellitus type: type 2 Diabetes mellitus alf insulin use: with assistant terminal manager use Diabetes mellitus complication status: with kidney complications Diabetes mellitus complication detail: with chronic kidney disease Chronic kidney disease stage: stage 3 (moderate) Qualified Code(s): E11.22 - Type 2 diabetes mellitus with diabetic chronic kidney disease; N18.3 - Chronic kidney disease, stage 3 (moderate); Z79.4 - long term care social worker (current) use of insulin (6) UTI (urinary tract infection) Current Visit: Yes Status: Acute Patient is on antibiotics per primary team Qualifiers: Urinary tract infection type: acute cystitis Hematuria presence: with hematuria Qualified Code(s): N30.01 - Acute cystitis with hematuria Subjective Interval history: Interim events noted; pt was admitted with progressive dyspnea noted volume ov erloaded with BUCKY on CKD stage 4 previously HD dependent and dialyzed yesterday. Pt seen and examined today on HD for second session doing well with less SOB and less edema. Objective - Vital Signs Vital signs: Vital Signs Temp Pulse Resp BP Pulse Ox 09/12/18 06:34 98.5 F 58 20 164/58 94 09/12/18 04:27 97.3 F L 68 17 154/60 93 09/11/18 23:10 98.2 F 65 17 152/69 94 09/11/18 22:32 16 94 09/11/18 20:47 97.8 F 62 17 176/78 95 09/11/18 18:17 98.0 F 20 171/70 09/11/18 18:05 159/73 09/11/18 17:50 169/68 09/11/18 17:35 170/65 09/11/18 17:23 97.5 F L 75 18 174/75 09/11/18 17:20 174/75 09/11/18 17:05 160/66 09/11/18 16:50 172/69 09/11/18 16:40 97.8 F 56 18 168/67 09/11/18 16:35 169/69 09/11/18 16:25 97.8 F 56 20 169/70 09/11/18 16:20 168/68 09/11/18 16:05 98.0 F 20 160/66 09/11/18 11:34 98.8 F 70 18 163/65 92 Intake and Output 09/11/18 09/12/18 09/12/18 23:59 07:59 15:59 Intake Total 2019 60 / 60 Output Total 4550 / 4550 1550 / 1550 600 / 600 Balance -2530 / -2530 -1550 / -1550 -540 / -540 Intake: IV Fluids 70 / 70 60 / 60 Lasix 240 MG In Dextrose 5% 96 60 / 60 / 60 ML @ 5 MG/HR 2.5 mls/hr IVC . Q24H MARY BETH Rx#:[id number] Rocephin 1,000 MG In Water for inj. (sterile) 10 ML @ 600 mls/ hr IVP Q24H MARY BETH Rx#:[id number] Oral 1000 / 1000 Blood Product 350 / 350 Rbcs Leuko Poor As-1 Unit 350 / 350 [id number] Intake, Rinseback and Flushes 600 / 600 Output: Urine 600 / 600 1550 / 1550 600 / 600 Total Dialysis (HD) Output 3950 / 3950 Other: Weight 125.4 kg Blood Glucose* 105 96 Hemodialysis Net Fluid Removed 3000 (mL) - General Appearance General appearance: Present: well-developed, well-nourished EENT: Present: ATNC, mucous membranes moist Neck: Present: no JVD, supple Respiratory: Present: clear Cardiology: Present: edema, normal S1, normal S2 Dialysis Vascular Access: Venous Catheter (temp HD) Gastrointestinal: Present: no tenderness, no guarding Integumentary: Present: warm and dry Neurologic: Present: no focal deficit Musculoskeletal: Present: no deformities Psychiatric: Present: mood/affect appropriate - Lab 09/13/18 05:57 09/13/18 05:57 Most recent lab results Calcium 8.8 mg/dL (8.6-10.3) 09/12/18 05:40 Phosphorus 4.9 mg/dL (2.7-4.5) H 09/12/18 05:40 Magnesium 2.6 mg/dL (1.6-2.6) 09/11/18 04:50 Urine Creatinine 50 mg/dL 09/12/18 05:25 Urine Total Protein 31 mg/dL (1-14) H 09/12/18 05:25 Consult Discharge Plan - Plan Referrals: [facility] [Primary Care Provider] - (Patient will more than likely be here for a few days. Possibly starting on HD)
--- NOTE | 2018-09-12 12:43 | Electrocardiograph Report ---
[place] [id number] Test Date: 2018-09-10 Pat Name: Casper Sandoval Department: [id number] Room: 2A14 Gender: M [employer] Member: : 1945 Requested By: Mika Storey Order Number: [id number] Reading MD: Mireille Lezama Measurements Intervals [place] Rate: 56 P: 112 HI: 202 QRS: 158 QRSD: 101 T: 149 QT: 468 QTc: 452 Interpretive Statements Right and left arm leads reversed please repeat ECG Electronically Signed On 09-12-2018 12:41:34 EST by Mireille Lezama
--- NOTE | 2018-09-12 12:44 | Internal Med Progress Note ---
Hospitalist Progress Note - Encounter Date of Encounter: 09/12/18 Time of Encounter: 12:41 - Subjective Interval History: I have seen and evaluated patient at bedside. patient reports significant improvement on his shortness of breath. denies nausea or vomiting. Hematuria has resolved. - Exam Vitals: Temp Pulse Resp BP Pulse Ox 97.9 F 58 18 151/68 94 09/12/18 09:20 09/12/18 06:34 09/12/18 09:20 09/12/18 11:35 09/12/18 06:34 Exam: Vitals: Reviewed. General: Alert and oriented x4. No distress Skin: Right IJ Temp HD Catheter, clean, non-tender site. Cardiovascular: RRR, normal S1 & S2, no rubs, murmurs or gallops. Lungs: minimal crackles at the bases b/l. No wheezing or rales Abdomen: Obese, soft, non-tender, no rigidity. NABS in all 4 quadrant Extremities: 2+ pitting edema in the lower extr b/l. Neurological: Normal cognition. Rest of the physical exam is non contributory - Assessment and Plan (1) Acute kidney failure Current Visit: Yes Status: Acute Assessment and Plan: patient has been started on HD. today received his second session. Plan of care as per nephrology team. avoid nephrotoxic medications (2) CHF (congestive heart failure) Current Visit: Yes Status: Acute Assessment and Plan: significant improvement on his breathing status. 4.7 litters have been removed with HD. on fluid restriction to 1.5 litters a day. discontinue furosemide drip. continue isosorbide and carvedilol. (3) UTI (urinary tract infection) Current Visit: Yes Status: Acute Assessment and Plan: urine culture: no growth final report. will continue ceftriaxone 1gm/IV daily to complete 5-7 days of IV antibiotics (4) IDDM (insulin dependent diabetes mellitus) Current Visit: Yes Status: Chronic Assessment and Plan: blood sugar is well controlled. on levemir 15 units BID, plus lispro low dose sliding scale (5) Anemia Current Visit: Yes Status: Chronic Assessment and Plan: H&H stable following a transfusion of 1PRBC with HD yesterday. pending FOBT. WIll continue to monitor (6) HTN (hypertension) Current Visit: No Status: Chronic Assessment and Plan: Blood pressure sub-optimally controlled. continue carvedilol 6.25mg/PO BID plus isosorbide 30mg/PO daily. will resume amlodipine 5mg/PO daily. 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 resume ranexa 500mg/PO BID (9) COPD (chronic obstructive pulmonary disease) Current Visit: Yes Status: Chronic Assessment and Plan: not on acute exacerbation. on Bronchodilators prn. on symbicort and spiriva (10) Gross hematuria Current Visit: Yes Status: Resolved Assessment and Plan: Urology recommended outpatient follow up. DVT Prophylaxis: mechanical dvt prophylaxis no chemical dvt prophylaxis due to hematuria - Summary of Assessment and Plan Summary of Assessment and Plan: Patient to remain in the hospital due to BUCKY on ckd started on HD. - Time Spent with Patient Total time spent is greater than 50% in coordination of care (as documented) at patient's floor/unit and/or counseling patient: Greater than 35 minutes (45) Plan of Care Discussed with: patient (his and the nurse.) Internal Medicine: Result - Labs CBC & Chem 7: 09/12/18 05:40 09/12/18 05:40 Labs: Short CBC 09/11/18 09/12/18 Range/Units 19:08 05:40 WBC 3.7 L 3.0 L (4.3-11.1) K/mcL Hgb 8.8 L 8.4 L (12.9-16.9) g/dL Hct 26.7 L 25.3 L (37.5-50.1) % Plt Count 65 L 57 L (140-400) K/mcL Neutrophils # 2.6 2.0 (1.6-8.9) K/mcL BMP 09/12/18 05:40 Sodium 141 Potassium 4.1 Chloride 107 Carbon Dioxide 27 BUN 94 H Creatinine 3.54 H Glucose 100 Calcium 8.8 Liver Function 09/12/18 Range/Units 05:40 Albumin 3.4 L (3.5-5.7) g/dL - ABG Interpretation ABG results: PT/INR, D-dimer PT 14.6 Seconds (9.4-12.1) H 09/10/18 23:07 - Impressions Impressions Guidance Ultrasound 09/11/18 00:00 IMPRESSION: Successful ultrasound and fluoroscopy guided non-tunneled catheter placement. D/ / Chema Trimble MD / Chema Trimble MD Interpreting Provider: Chema Trimble MD Insertion Non-Tunneled Catheter 09/11/18 00:00 IMPRESSION: Successful ultrasound and fluoroscopy guided non-tunneled catheter placement. D/ / Chema Trimble MD / Chema Trimble MD Interpreting Provider: Chema Trimble MD Chest X-Ray 09/11/18 14:31 IMPRESSION: Right central venous catheter with tip projecting in the region of the lower SVC. Interstitial prominence in the lower lungs which may be related to mild edema. D/ / Roberta Yates MD / Roberta Yates MD Interpreting Provider: Roberta Yates MD Retroperitoneum Ultrasound 09/11/18 15:00 IMPRESSION: Normal sonographic appearance of the kidneys as above. D/ / Deena Jerry Cha, MD / Deena Jerry Cha, MD Interpreting Provider: Deena Jerry Cha, MD Abdomen/Pelvis CT 09/11/18 16:00 IMPRESSION: Findings similar to prior study showing cirrhotic morphology liver with evidence portal venous hypertension including splenomegaly, venous collaterals, mild mesenteric edema trace pericolic gutter fluid. Evaluation of the hepatic parenchyma is very limited without intravenous contrast. An MRI with contrast would be ideal to evaluate for focal suspicious lesion. Bilateral nephrolithiasis. D/ / Deena Jerry Cha, MD / Deena Jerry Cha, MD Interpreting Provider: Deena Jerry Cha, MD Consult Discharge Plan - Plan [facility]errals: [facility] [Primary Care Provider] - (Patient will more than likely be here for a f ew days. Possibly starting on HD) (1) Acute kidney failure Qualifiers: Acute renal failure type: unspecified Qualified Code(s): N17.9 - Acute kidney failure, unspecified (2) CHF (congestive heart failure) Qualifiers: Heart failure type: diastolic Heart failure chronicity: acute Qualified Code(s): I50.31 - Acute diastolic (congestive) heart failure (3) UTI (urinary tract infection) Qualifiers: Urinary tract infection type: acute cystitis Hematuria presence: with hematu oc Qualified Code(s): N30.01 - Acute cystitis with hematuria (5) Anemia Qualifiers: Anemia type: unspecified type Qualified Code(s): D64.9 - Anemia, unspecified (6) HTN (hypertension) Qualifiers: Hypertension type: essential hypertension Qualified Code(s): I10 - Essential (primary) hypertension (8) CAD (coronary artery disease) Qualifiers: Coronary Disease-Associated Artery/Lesion type: unspecified vessel or lesion type [place] vs. transplanted heart: unspecified whether [place] or transplanted heart Associated angina: angina presence unspecified Qualified Code(s): I25.10 - Atherosclerotic heart disease of [place] coronary artery without angina pectoris (9) COPD (chronic obstructive pulmonary disease) Qualifiers: COPD type: unspecified COPD Qualified Code(s): J44.9 - Chronic obstructive pulmonary disease, unspecified
[2018-09-12] MEDS: Acetaminophen 325 MG TABLET PO PRN (14:06)
[2018-09-12] MEDS: amLODIPine 5 MG TABLET PO SCH (14:39)
[2018-09-12] MEDS ORDERED: Mag Hydrox/Al Hydrox/Simeth 30 ML UDC PO PRN (17:20)
[2018-09-12] MEDS ORDERED: Ondansetron 4 MG/2 ML VIAL IVP PRN (17:21)
[2018-09-12] MEDS: Ranolazine 500 MG TAB.ER.12H PO SCH (21:03)
[2018-09-12] MEDS: cefTRIAXone 1,000 MG in Water for inj. (sterile) 20 ML 10 ML IVP SCH (22:17)
[2018-09-13 06:10] LABS: Immature Granulocytes % 0.3 % (0-4)
[2018-09-13 06:12] LABS: Basophils % 0.6 %; Eosinophils # 0.1 K/mcL (0.0-0.6); Eosinophils % 3.1 %; Hemoglobin 8.6 g/dL (12.9-16.9); Immature Platelets 5.1 % (1.1-6.1); Lymphocytes # 0.7 K/mcL (0.6-4.6); Lymphocytes % 22.9 %; Mean Corpuscular HGB Conc 33.1 g/dL (31.6-35.5); Mean Corpuscular Hemoglobin 30.1 pg (28.0-33.3); Mean Corpuscular Volume 90.9 fL (83.0-100.0); Monocytes # 0.4 K/mcL (0.0-1.3); Monocytes % 11.5 %; Red Blood Count 2.86 M/mcL (4.19-5.50); Red Cell Distribution Width 13.1 % (11.5-14.5); Segmented Neutrophils % 61.6 %
[2018-09-13 06:14] LABS: Platelet Count 59 K/mcL (140-400)
[2018-09-13 06:24] LABS: Calcium 8.9 mg/dL (8.6-10.3); Magnesium 2.1 mg/dL (1.6-2.6); Phosphorous 4.2 mg/dL (2.7-4.5); Potassium 3.8 mEq/L (3.5-5.1)
[2018-09-13] MEDS: Budesonide/Formoterol 80/4.5 MDI IH SCH ×2 (07:58→22:00)
[2018-09-13] MEDS: Tiotropium 18 MCG inhalation IH SCH (07:58)
[2018-09-13] MEDS: Insulin LISPRO 300 UNITS/3 ML VIAL SQ SCH ×3 (08:03→16:38)
[2018-09-13] MEDS: Aspirin Enteric Coated 81 MG Tablet PO SCH (08:46)
[2018-09-13] MEDS: Isosorbide MONOnitrate (24 HR) 30 MG TAB.ER.24H PO SCH (08:46)
[2018-09-13] MEDS: amLODIPine 5 MG TABLET PO SCH (08:46)
[2018-09-13] MEDS: Ranolazine 500 MG TAB.ER.12H PO SCH ×2 (08:46→21:04)
[2018-09-13] MEDS: Insulin DETEMIR 100 UNIT/ML X5UNITS SQ SCH ×2 (09:32→21:06)
--- NOTE | 2018-09-13 09:52 | Internal Med Progress Note ---
Hospitalist Progress Note - Encounter Date of Encounter: 09/13/18 Time of Encounter: 09:50 - Subjective Interval History: I have seen and evaluated patient at bedside. reports not feeling well today due to generalized weakness. also reports having chills and feeling hot overnight. he also reports 3 BM of loose stool last night. - Exam Vitals: Temp Pulse Resp BP Pulse Ox 97.7 F 55 16 146/74 97 09/13/18 06:42 09/13/18 06:42 09/13/18 07:58 09/13/18 06:42 09/13/18 07:58 Exam: Vitals: Reviewed. General: Alert and oriented x4. Mild distress due to generalized weakness. Skin: Right IJ Temp HD Catheter, clean, non-tender site. Cardiovascular: RRR, normal S1 & S2, no rubs, murmurs or gallops. Lungs: CTA b/l. No wheezing or rales Abdomen: Obese, soft, non-tender, no rigidity. NABS in all 4 quadrant Extremities: 1+ pitting edema in the lower extr b/l. Neurological: Normal cognition. Rest of the physical exam is non contributory - Assessment and Plan (1) Acute kidney failure Current Visit: Yes Status: Acute Assessment and Plan: patient received renal replacement therapy for the past 2 days. will monitor renal recovery following HD. avoid nephrotoxic medications Plan of care as per nephrology recommendations (2) CHF (congestive heart failure) Current Visit: Yes Status: Acute Assessment and Plan: shortness of breath and volume overload on presentation resolved following HD. total balance negative of 8 litters. continue fluids restrictive strategies to 1.5 litters a day. continue carvedilol 6.25mg/PO BID and isosorbide. (3) UTI (urinary tract infection) Current Visit: Yes Status: Acute Assessment and Plan: will continue antibiotics to complete 7 days of treatment. patient reported having 3 episodes of loose stool last night. if loose stool continues will consider testing for C.diff. (4) IDDM (insulin dependent diabetes mellitus) Current Visit: Yes Status: Chronic Assessment and Plan: blood sugar is controlled on levemir 15 units BID, plus lispro low dose sliding scale. carb controlled diet. (5) Anemia Current Visit: Yes Status: Chronic Assessment and Plan: H&H stable post 1 unit of PRBC transfused. will continue to monitor (6) HTN (hypertension) Current Visit: No Status: Chronic Assessment and Plan: BP sub-optimally controlled. Increase amlodipine to 10mg/PO daily. continue carvedilol and isosorbide current dose. (7) Thrombocytopenia Current Visit: No Status: Chronic Assessment and Plan: platelets count stable. (8) CAD (coronary artery disease) Current Visit: Yes Status: Chronic Assessment and Plan: patient on aspirin and ranolazine. (9) COPD (chronic obstructive pulmonary disease) Current Visit: Yes Status: Chronic Assessment and Plan: not on acute exacerbation. chest is clear to auscultation. continue bronchodilators PRN on symbicort (10) Gross hematuria Current Visit: Yes Status: Resolved DVT Prophylaxis: No chemical DVT prophylaxis as per Urology recommendations due to hematuria on presentation continue intermittent pneumatic compression - Summary of Assessment and Plan Summary of Assessment and Plan: patient to remain in the hospital due to BUCKY/CKD started on HD. monitoring for r enal recovery. - Time Spent with Patient Total time spent is greater than 50% in coordination of care (as documented) at patient's floor/unit and/or counseling patient: Greater than 35 minutes (40) Plan of Care Discussed with: patient (and the nurse.) Internal Medicine: Result - Labs CBC & Chem 7: 09/13/18 05:57 09/13/18 05:57 Labs: Short CBC 09/13/18 Range/Units 05:57 WBC 3.2 L (4.3-11.1) K/mcL Hgb 8.6 L (12.9-16.9) g/dL Hct 26.0 L (37.5-50.1) % Plt Count 59 L (140-400) K/mcL Neutrophils # 2.0 (1.6-8.9) K/mcL BMP 09/13/18 05:57 Sodium 140 Potassium 3.8 Chloride 106 Carbon Dioxide 30 H BUN 55 H Creatinine 2.60 H Glucose 101 Calcium 8.9 - ABG Interpretation ABG results: PT/INR, D-dimer PT 14.6 Seconds (9.4-12.1) H 09/10/18 23:07 Consult Discharge Plan - Plan Referrals: [facility] [Primary Care Provider] - (Patient will more than likely be here for a few days. Possibly starting on HD) (1) Acute kidney failure Qualifiers: Acute renal failure type: unspecified Qualified Code(s): N17.9 - Acute kidney failure, unspecified (2) CHF (congestive heart failure) Qualifiers: Heart failure type: diastolic Heart failure chronicity: acute Qualified Code(s): I50.31 - Acute diastolic (congestive) heart failure (3) UTI (urinary tract infection) Qualifiers: Urinary tract infection type: acute cystitis Hematuria presence: with hematuria Qualified Code(s): N30.01 - Acute cystitis with hematuria (5) Anemia Qualifiers: Anemia type: unspecified type Qualified Code(s): D64.9 - Anemia, unspecified (6) HTN (hypertension) Qualifiers: Hypertension type: essential hypertension Qualified Code(s): I10 - Essential (primary) hypertension (8) CAD (coronary artery disease) Qualifiers: Coronary Disease-Associated Artery/Lesion type: unspecified vessel or lesion type [place] vs. transplanted heart: unspecified whether [place] or transplanted heart Associated angina: angina presence unspecified Qualified Code(s): I25.10 - Atherosclerotic heart disease of [place] coronary artery without angina pectoris (9) COPD (chronic obstructive pulmonary disease) Qualifiers: COPD type: unspecified COPD Qualified Code(s): J44.9 - Chronic obstructive pulmonary disease, unspecified
[2018-09-13] MEDS ORDERED: Furosemide 40 MG/4 ML VIAL IVP ONE (11:37)
[2018-09-13 16:11] LABS: Adenovirus F 40/41 PCR Not detected (Not detect); Astrovirus PCR Not detected (Not detect); C.difficile Toxin A/B Gene PCR Not detected (Not detect); Campylobacter by PCR Not detected (Not detect); Cryptosporidium by PCR Not detected (Not detect); Cyclospora cayetanensis PCR Not detected (Not detect); E. coli O157 by PCR Not detected (Not detect); Entamoeba histolytica PCR Not detected (Not detect); Enteroaggregative E.coli(EAEC) Not detected (Not detect); Enteropathogenic E.coli(EPEC) Not detected (Not detect); Enterotoxigenic E.coli (ETEC) Not detected (Not detect); Giardia lamblia PCR Not detected (Not detect); Norovirus GI/GII PCR Not detected (Not detect); Plesiomonas shigelloides PCR Not detected (Not detect); Rotavirus A PCR Not detected (Not detect); Salmonella PCR Not detected (Not detect); Sapovirus PCR Not detected (Not detect); Shig/EnteroinvasiveE coli EIEC Not detected (Not detect); Shigalike tox-prod E coli STEC Not detected (Not detect); Vibrio PCR Not detected (Not detect); Vibrio cholerae PCR Not detected (Not detect); Yersinia enterocolitica PCR Not detected (Not detect)
--- NOTE | 2018-09-13 16:58 | Nephrology Progress Note ---
Date of Encounter: 09/13/18 Time of Encounter: 12:00 - Assessment and Plan (1) Acute kidney injury superimposed on chronic kidney disease Current Visit: Yes Status: Acute Scr improved at 2.6 after 2 days of consecutive Hd treatments. No HD planned today Will monitor for signs of renal recovery to decide if pt needs on going HD, will reassess tomorrow Continue to avoid nephrotoxins if possible UOP very good at approx. 2400cc in the past 24hrs Renal diet added (2) Anemia Current Visit: No Status: Chronic Hgb fairly stable at 8.6, will monitor Qualifiers: Qualified Code(s): D64.9 - Anemia, unspecified (3) CHF (congestive heart failure) Current Visit: Yes Status: Acute Improving with aggressive UF Strict I/Os advised Fluid restriction advised Qualifiers: Heart failure type: diastolic Heart failure chronicity: acute Qualified Code(s): I50.31 - Acute diastolic (congestive) heart failure (4) HTN (hypertension) Current Visit: No Status: Chronic BP readings in the 150-170s systolic range despite UF yesterday. Agree with am lodipine increase to 10mg daily Qualifiers: Hypertension type: essential hypertension Qualified Code(s): I10 - Essential (primary) hypertension (5) Diabetes mellitus Current Visit: No Status: Chronic Per primary team. Nepro added to meals Qualifiers: Diabetes mellitus type: type 2 Diabetes mellitus termite control service representative insulin use: with termite control service representative use Diabetes mellitus complication status: with kidney complications Diabetes mellitus complication detail: with chronic kidney disease Chronic kidney disease stage: stage 3 (moderate) Qualified Code(s): E11.22 - Type 2 diabetes mellitus with diabetic chronic kidney disease; N18.3 - Chronic kidney disease, stage 3 (moderate); Z79.4 - terminal superintendent (current) use of insulin (6) UTI (urinary tract infection) Current Visit: Yes Status: Acute Patient is on antibiotics per primary team Qualifiers: Urinary tract infection type: acute cystitis Hematuria presence: with hematuria Qualified Code(s): N30.01 - Acute cystitis with hematuria Subjective Interval history: Interim events noted; pt was admitted with progressive dyspnea noted volume overloaded with BCUKY on CKD stage 4 previously HD dependent and dialyzed yesterday. Pt seen and examined with at bedside not feeling good today due to decreased po intake, diarrhea and episodes of hypoglycemia. Objective - Vital Signs Vital signs: Vital Signs Temp Pulse Resp BP Pulse Ox 02/10/19 16:17 98.4 F 59 20 160/59 98 09/13/18 11:04 97.8 F 51 20 134/58 94 09/13/18 07:58 16 97 09/13/18 06:42 97.7 F 55 20 146/74 95 09/13/18 05:34 98.6 F 61 17 157/64 95 09/12/18 23:40 98.3 F 58 17 160/63 93 09/12/18 19:49 14 98 09/12/18 18:45 98.1 F 55 17 149/60 95 09/12/18 17:25 98.3 F 57 20 153/65 96 Intake and Output 09/13/18 09/13/18 09/13/18 07:59 15:59 23:59 Intake Total 420 / 420 Output Total 400 / 400 Balance Intake: IV Fluids Rocephin 1,000 MG In Water for inj. (sterile) 10 ML @ 600 mls/ hr IVP Q24H [facility] Rx#:[id number] Oral 420 / 420 Output: Urine 400 / 400 Other: Meal Lunch Percent of Meal Consumed 10% Blood Glucose* 96 189 137 - General Appearance General appearance: Present: well-developed, well-nourished EENT: Present: ATNC, mucous membranes dry Neck: Present: no JVD, supple Respiratory: Present: clear Cardiology: Present: edema (decerased bilat LE), normal S1, normal S2 Dialysis Vascular Access: Venous Catheter (temp HD) Gastrointestinal: Present: no tenderness, no guarding, obese Integumentary: Present: warm and dry Neurologic: Present: no focal deficit Musculoskeletal: Present: no deformities Psychiatric: Present: mood/affect appropriate, cooperative - Lab 09/13/18 05:57 09/13/18 05:57 Most recent lab results Calcium 8.9 mg/dL (8.6-10.3) 09/13/18 05:57 Phosphorus 4.2 mg/dL (2.7-4.5) 09/13/18 05:57 Magnesium 2.1 mg/dL (1.6-2.6) 09/13/18 05:57 Urine Creatinine 50 mg/dL 09/12/18 05:25 Urine Total Protein 31 mg/dL (1-14) H 09/12/18 05:25 Consult Discharge Plan - Plan Referrals: [facility] [Primary Care Provider] - (Patient will more than likely be here for a f ew days. Possibly starting on HD)
[2018-09-13] MEDS: cefTRIAXone 1,000 MG in Water for inj. (sterile) 20 ML 10 ML IVP SCH (21:04)
[2018-09-14] MEDS: Insulin LISPRO 300 UNITS/3 ML VIAL SQ SCH ×2 (03:37→07:51)
[2018-09-14 05:58] LABS: Basophils % 0.3 %; Immature Granulocytes % 0.3 % (0-4); Red Cell Distribution Width 13.1 % (11.5-14.5)
[2018-09-14 06:00] LABS: Eosinophils # 0.2 K/mcL (0.0-0.6); Eosinophils % 4.4 %; Hemoglobin 8.8 g/dL (12.9-16.9); Immature Platelets 4.9 % (1.1-6.1); Lymphocytes # 0.7 K/mcL (0.6-4.6); Lymphocytes % 20.1 %; Mean Corpuscular HGB Conc 33.8 g/dL (31.6-35.5); Mean Corpuscular Hemoglobin 30.7 pg (28.0-33.3); Mean Corpuscular Volume 90.6 fL (83.0-100.0); Mean Platelet Volume 11.7 fL (9.4-12.4); Monocytes # 0.4 K/mcL (0.0-1.3); Monocytes % 11.3 %; Neutrophils # 2.2 K/mcL (1.6-8.9); Platelet Count 64 K/mcL (140-400); Red Blood Count 2.87 M/mcL (4.19-5.50); Segmented Neutrophils % 63.6 %
[2018-09-14 06:27] LABS: Potassium 3.9 mEq/L (3.5-5.1)
[2018-09-14] MEDS ORDERED: amLODIPine 5 MG TABLET PO SCH (09:00)
[2018-09-14] MEDS ORDERED: hydrALAZINE 25 MG TABLET PO SCH (09:00)
[2018-09-14] MEDS: Aspirin Enteric Coated 81 MG Tablet PO SCH (09:12)
[2018-09-14] MEDS: Isosorbide MONOnitrate (24 HR) 30 MG TAB.ER.24H PO SCH (09:12)
[2018-09-14] MEDS: Ranolazine 500 MG TAB.ER.12H PO SCH (09:12)
[2018-09-14] MEDS: Insulin DETEMIR 100 UNIT/ML X5UNITS SQ SCH (09:19)
--- NOTE | 2018-09-14 09:23 | Nephrology Progress Note ---
Date of Encounter: 09/14/18 Time of Encounter: 09:21 - Assessment and Plan (1) Acute kidney injury superimposed on chronic kidney disease Current Visit: Yes Status: Acute Scr improved at 2.65 and GFR is unchanged at 24. 24 hour urine and Renal Function Panel ordered for Friday09/16/[address] Love to please continue the 24 hour urine with discharge summary so patient can bring in on Friday. Patient is also aware as well as charge nurse. No HD today. Patient may go home from a renal standpoint, BMP on Friday (09/16/18) and f/u in office (09/17/18). This is only if he can go home from a primary standpoint. Continue to avoid nephrotoxins if possible. (2) Anemia Current Visit: No Status: Chronic Hgb fairly stable at 8.8, will monitor (3) HTN (hypertension) Current Visit: No Status: Chronic 179/67, stable. Qualifiers: Hypertension type: essential hypertension Qualified Code(s): I10 - Essential (primary) hypertension (4) Diabetes mellitus Current Visit: No Status: Chronic Per primary team. Qualifiers: Diabetes mellitus type: type 2 Diabetes mellitus half-way insulin use: with half-way use Diabetes mellitus complication status: with kidney complications Diabetes mellitus complication detail: with chronic kidney disease Chronic kidney disease stage: stage 3 (moderate) Qualified Code(s): E11.22 - Type 2 diabetes mellitus with diabetic chronic kidney disease; N18.3 - Chronic kidney disease, stage 3 (moderate); Z79.4 - jail (current) use of insulin (5) CHF (congestive heart failure) Current Visit: Yes Status: Resolved Strict I/Os advised Fluid restriction advised Qualifiers: Heart failure type: diastolic Heart failure chronicity: acute on chronic Qualified Code(s): I50.33 - Acute on chronic diastolic (congestive) heart failure (6) UTI (urinary tract infection) Current Visit: Yes Status: Acute Patient is on antibiotics per primary team Qualifiers: Urinary tract infection type: acute cystitis Hematuria presence: with hematuria Qualified Code(s): N30.01 - Acute cystitis with hematuria Subjective Principal diagnosis: blood in urine Interval history: Pt seen and examined, doing well. He admits he is ready to go home. He agrees to get outpatient labs on Friday and see Dr. Wei on in the clinic. Denies nausea, vomiting, diarrhea. Denies shortness of breath or chest pain. Objective - Vital Signs Vital signs: Vital Signs Temp Pulse Resp BP Pulse Ox 09/14/18 07:20 97.9 F 60 20 179/67 95 09/13/18 23:05 99.8 F H 60 17 161/67 96 09/13/18 22:00 16 98 09/13/18 19:30 98.5 F 65 17 166/77 93 09/13/18 16:17 98.4 F 59 20 160/59 98 09/13/18 11:04 97.8 F 51 20 134/58 94 Intake and Output 09/13/18 09/14/18 09/14/18 23:59 07:59 15:59 Intake Total 500 / 500 Output Total 400 / 400 450 / 450 Balance 100 / 100 -440 / -440 Intake: IV Fluids Rocephin 1,000 MG In Water for inj. (sterile) 10 ML @ 600 mls/ hr IVP Q24H [facility] Rx#:[id number] Oral 500 / 500 Output: Urine 400 / 400 450 / 450 Other: Meal 2 orange sherberts Blood Glucose* 130 105 - General Appearance General appearance: Present: well-developed, well-nourished EENT: Present: ATNC, hearing intact, vision intact Neck: Present: supple Respiratory: Present: clear Cardiology: Present: no edema, normal S1, normal S2 Dialysis Vascular Access: Venous Catheter (DRSG C/D/I) Gastrointestinal: Present: normoactive bowel sounds, no tenderness, no guarding Integumentary: Present: no rash, warm and dry Neurologic: Present: alert and oriented x3 Musculoskeletal: Present: no deformities, no erythema Psychiatric: Present: mood/affect appropriate, cooperative - Lab 09/14/18 05:20 09/14/18 05:20 Most recent lab results Calcium 9.0 mg/dL (8.6-10.3) 09/14/18 05:20 Phosphorus 4.2 mg/dL (2.7-4.5) 09/13/18 05:57 Magnesium 2.1 mg/dL (1.6-2.6) 09/13/18 05:57 Urine Creatinine 50 mg/dL 09/12/18 05:25 Urine Total Protein 31 mg/dL (1-14) H 09/12/18 05:25 Consult Discharge Plan - Plan Referrals: [facility] [Primary Care Provider] - 09/22/18 10:45 am (Patient will more than likely be here for a few days. Possibly starting on HD) Prescriptions: Amoxicillin/Clavulanate [Augmentin] 875 mg PO BIDWM 3 Days #6 tablet
--- NOTE | 2018-09-14 10:03 | Discharge Summary ---
- NOTES TO OUTPATIENT PROVIDER Notes to Outpatient Provider: Follow up with nephrology on Friday. Orders not resulted at time of discharge: Pending orders 09/11/18 06:00 ECG 12 lead ECG [ECG] AM 0600 09/11/18 13:18 Red Blood Cells [BBK] Stat Type and Screen [BBK] Stat 09/12/18 05:40 Protein Electrophoresis AM 0400 Vitamin D 25 Hydroxy AM 04009/15/18 04:00 Basic Metabolic Panel AM 0400 CBC [Complete Blood Count] [HEME] AM 0400 Date of Encounter: 09/14/18 Time of Encounter: 10:01 - Discharge Diagnosis (1) Acute kidney failure Priority: Primary Status: Acute Qualifiers: Acute renal failure type: unspecified Qualified Code(s): N17.9 - Acute kidney failure, unspecified (2) CHF (congestive heart failure) Priority: Secondary Status: Resolved Qualifiers: Heart failure type: diastolic Heart failure chronicity: acute on chronic Qualified Code(s): I50.33 - Acute on chronic diastolic (congestive) heart failure (3) UTI (urinary tract infection) Priority: Secondary Status: Acute Qualifiers: Urinary tract infection type: acute cystitis Hematuria presence: with hematuria Qualified Code(s): N30.01 - Acute cystitis with hematuria (4) IDDM (insulin dependent diabetes mellitus) Priority: Secondary Status: Chronic (5) Anemia Priority: Secondary Status: Chronic Qualifiers: Anemia type: unspecified type Qualified Code(s): D64.9 - Anemia, unspecified (6) HTN (hypertension) Priority: Secondary Status: Chronic Qualifiers: Hypertension type: essential hypertension Qualified Code(s): I10 - Essential (primary) hypertension (7) Thrombocytopenia Priority: Secondary Status: Chronic (8) CAD (coronary artery disease) Priority: Secondary Status: Chronic Qualifiers: Coronary Disease-Associated Artery/Lesion type: unspecified vessel or lesion type [place] vs. transplanted heart: unspecified whether [place] or transplanted heart Associated angina: angina presence unspecified Qualified Code(s): I25.10 - Atherosclerotic heart disease of [place] coronary artery without angina pectoris (9) COPD (chronic obstructive pulmonary disease) Priority: Secondary Status: Chronic Qualifiers: COPD type: unspecified COPD Qualified Code(s): J44.9 - Chronic obstructive pulmonary disease, unspecified (10) Gross hematuria Priority: Secondary Status: Resolved Hospital course: Mr. Sandoval is a 73 year old male history of arthritis, CHF, coronary artery disease, dementia, diabetes, hyperlipidemia, hypertension, myocardial infarction, peripheral artery disease, renal disease, thyroid disease, who was seen at the [place] urgent care for concerns of shortness of breath, diffuse edema, dysuria, and hematuria. Patient was admitted to the hospital due to CHF exacerbation, BUCKY on ckd, hematuria due to a UTI. Patient was managed with lasix drip, and IV antibiotics. The hematuria resolved, urology recommended outpatient follow up. Nephrology consulted, patient was started on HD and received 2 sessions of renal replacement therapy. Kidney function and volume status improved following HD. Shortness of breath resolved. Nephrology agreed on discharging the patient home and recommended to follow up them on Friday. Patient is hemodynamically stable to be discharged home. - Time Spent with Patient Total time spent providing and/or coordinating discharge services: Greater than 30 minutes (40) - Discharge Medications Prescriptions: Amoxicillin/Clavulanate [Augmentin] 875 mg PO BIDWM 3 Days #6 tablet Home Medications: Insulin Glargine,Hum.rec.anlog [Lantus Solostar] 40 unit SQ HS 01/15/16 [History] Albuterol Sulfate [Proair Hfa] 2 puff IH Q4H PRN 09/10/18 [History] Allopurinol [Zyloprim] 300 mg PO DAILY 09/10/18 [History] Budesonide/Formoterol 80/4.5 [Symbicort 80/4.5] 2 puff IH BIDR 09/10/18 [History] Calcitriol [Rocaltrol] 0.25 mcg PO DAILY 09/10/18 [History] Calcium Acetate [Phos-LO] 667 mg PO TIDWM 09/10/18 [History] Carvedilol [Coreg] 25 mg PO BID 09/10/18 [History] Ferrous Gluconate 324 mg PO BID 09/10/18 [History] Furosemide [Lasix] 80 mg PO BID 09/10/18 [History] Gabapentin [Neurontin] 300 mg PO BID 09/10/18 [History] Hydralazine HCl 50 mg PO TID 09/10/18 [History] Insulin ASPART [Novolog Flexpen] 18 unit SQ TIDWM 09/10/18 [History] Ipratropium [place] 1 spr NS BID 09/10/18 [History] Isosorbide MONOnitrate (24 HR) [Imdur] 30 mg PO DAILY 09/10/18 [History] Methocarbamol [Robaxin] 500 mg PO Q8HR PRN 09/10/18 [History] Pantoprazole Sodium [Protonix] 40 mg PO DAILY 09/10/18 [History] Pravastatin Sodium [Pravachol] 40 mg PO HS 09/10/18 [History] Ranolazine [Ranexa] 500 mg PO BID 09/10/18 [History] Tiotropium [Spiriva] 18 mcg IH 0700 09/10/18 [History] amLODIPine [Norvasc] 5 mg PO DAILY 09/10/18 [History] traZODone [TraZODone] 50 mg PO HS PRN 09/10/18 [History] Amoxicillin/Clavulanate [Augmentin] 875 mg PO BIDWM 3 Days #6 tablet 09/14/18 [Rx] Allergies/Adverse Reactions: Allergy/AdvReac Type Severity Reaction Status Date / Time niacin Allergy Unknown unknown Verified 09/10/18 22:25 atorvastatin [From Lipitor] AdvReac Unknown stomach Verified 09/10/18 22:25 pain simvastatin [From Zocor] AdvReac Unknown stomach Verified 09/10/18 22:25 pain Date of admission: 09/10/18 23:20 [facility] care physician: [facility] Consults: 09/10/18 19:05 Consult to Nephrology [CONS] Stat Consulting Provider: Kidney Aileen/TIGIST/LASHONDA/GERI Reason for Consult: CKD stage 4 with BUCKY, SCreat if 5.15 hx of dialysis Time Notified: 19:06 Call Completed: Yes 09/11/18 10:16 Consult to Interventional Radiology [CONS] Routine Consulting Provider: Radiology Interventional Cols Reason for Consult: Patient needs nontunneled hd line with 3rd port for dialysis. Call Completed: No 09/11/18 10:45 Consult to Dialysis [CONS] ONCE 09/11/18 12:06 Consult to Nurse Navigator [CONS] Routine Comment: chf 09/11/18 13:27 Consult to Urology [CONS] Routine Consulting Provider: Urology Aileen Reason for Consult: hematuria Call Completed: Yes 09/12/18 07:30 Consult to Dialysis [CONS] ONCE - Constitutional Vitals: Temp Pulse Resp BP Pulse Ox 97.9 F 60 20 179/67 95 09/14/18 07:20 09/14/18 07:20 09/14/18 07:20 09/14/18 07:20 09/14/18 07:20 General appearance: Present: cooperative, mild distress, A&O X 3, pleasant, answers questions appropriately Exam: Vitals: Reviewed. General: Alert and oriented x4. No acute distress Cardiovascular: RRR, normal S1 & S2, no rubs, murmurs or gallops. Lungs: minimal crackles at the bases b/l. No wheezing or rales Abdomen: Obese, soft, non-tender, no rigidity. Extremities: 1+ pitting edema in the lower extr b/l. Neurological: Normal cognition. Rest of the physical exam is non contributory - Patient Status Disposition: Home, Self-Care Condition: Good Functional capacity at discharge: independent ambulation Overall status at discharge: patient is back to baseline - Discharge Instructions [facility] With: [facility] [Primary Care Provider] - (Patient will more than likely be here for a few days. Possibly starting on HD) - Diet and Activity Activity: resume usual activities as tolerated Diet: diabetic diet, low salt diet
[2018-09-14] MEDS: Budesonide/Formoterol 80/4.5 MDI IH SCH (10:09)
[2018-09-14] MEDS: Tiotropium 18 MCG inhalation IH SCH (10:09)
[2018-09-14 10:50] VITALS: BP 154/62
--- NOTE | 2018-09-15 14:20 | Electrocardiograph Report ---
[place] [id number] Test Date: 2018-09-11 Pat Name: Casper Sandoval Department: 112 Room: 2A14 Gender: M Compliance Program Manager: [facility] : 1945 Requested By: Fernando Olguin Order Number: [id number] Reading MD: Mireille Lezama Measurements Intervals [place] Rate: 66 P: 164 ME: 223 QRS: 12 QRSD: 97 T: 18 QT: 420 QTc: 433 Interpretive Statements SINUS RHYTHM WITH FIRST DEGREE AV BLOCK Electronically Signed On 09-15-2018 14:18:28 EST by Mireille Lezama
--- NOTE | 2018-09-15 14:32 | Electrocardiograph Report ---
[place] [id number] Test Date: 2018-09-12 Pat Name: Casper Sandoval Department: 112 Room: 2A14 Gender: M Family Practice Md: : 1945 Requested By: Fernando Olguin Order Number: [id number] Reading MD: Mireille Lezama Measurements Intervals [place] Rate: 57 P: 69 NE: 194 QRS: 23 QRSD: 102 T: 55 QT: 474 QTc: 468 Interpretive Statements SINUS BRADYCARDIA PROLONGED QT INTERVAL Electronically Signed On 09-15-2018 14:30:14 EST by Mireille Lezama
== END 2018-09-14 12:40 | disposition home or self-care (01) | DRG 291 ==
LOC: EMEROOARM 18:19 → 2ANU 18:19 → SUATTDRO 23:20
PROVIDERS: ADMIT Family Medicine; ATTEND Internal Medicine

== ENCOUNTER 2018-10-09 18:30 | Inpatient (IN) ==
--- NOTE | 2018-10-09 18:34 | Emergency Department Note ---
Disposition Clinical Impression: Elevated troponin Diarrhea Qualifiers: Diarrhea type: infectious Qualified Code(s): A09 - Infectious gastroenteritis and colitis, unspecified Sepsis Qualifiers: Sepsis type: sepsis due to unspecified organism Qualified Code(s): A41.9 - Sepsis, unspecified organism Disposition: Admitted As Inpatient Condition: Fair Referrals: NONE,PCP [Primary Care Provider] - Time of Disposition: 22:54 Nausea/Vomiting/Diarrhea HPI - General Stated complaint: Abdomianl Pain Time Seen by Provider: 10/09/18 18:32 Nursing Notes Reviewed: Yes Vital Signs Reviewed: Yes - History of Present Illness HPI Narrative: 73yo male presents with 3 day history of nausea and loose stools. Onset 3 days ago. Described as 10+ episodes per day. Nonbloody. He is not sure if he has a dark black stools with his loose stools. He did start an unknown blood thinner yesterday or perhaps a day before secondary to a right lower extremity DVT. Patient also is on an unknown antibiotic for an unknown cause which he has been taking an unknown amount of time. Associated with loose stools, patient has lo wer abdominal cramping unchanged with defecation. [facility]. The [place] physician called [facility] who recommended the patient be transferred to this facility for admission. PMH: Chronic kidney disease stage IV not yet on dialysis. CHF, CAD, dementia, diabetes, hypertension, hyperlipidemia, ACS status post AL, CHF, PAD. Cirrhosis. Special Effects Technician: Dr. Wei Primary care team, red-team [place] ROS: Neck slight positive: As above Negative: Fever, chills, vomiting, chest pains, palpitations, back pain, flank pain, dysuria - Related Data Home Medications Medication Instructions Recorded Confirmed Insulin Glargine,Hum.rec.anlog 35 unit SQ HS 01/15/16 09/29/18 [Lantus Solostar] Albuterol Sulfate [Proair Hfa] 2 puff IH Q4H PRN 09/10/18 09/29/18 Allopurinol [Zyloprim] 300 mg PO DAILY 09/10/18 09/29/18 Budesonide/Formoterol 80/4.5 2 puff IH BIDR 09/10/18 09/29/18 [Symbicort 80/4.5] Calcitriol [Rocaltrol] 0.25 mcg PO DAILY 09/10/18 09/29/18 Calcium Acetate [Phos-LO] 667 mg PO TIDWM 09/10/18 09/29/18 Ferrous Gluconate 324 mg PO BID 09/10/18 09/29/18 Gabapentin [Neurontin] 300 mg PO BID 09/10/18 09/29/18 Hydralazine HCl 50 mg PO TID 09/10/18 09/29/18 Insulin ASPART [Novolog Flexpen] 18 unit SQ TIDWM 09/10/18 09/29/18 Ipratropium [place] 1 spr NS BID PRN 09/10/18 09/29/18 Methocarbamol [Robaxin] 500 mg PO Q8HR PRN 09/10/18 09/29/18 Pantoprazole Sodium [Protonix] 40 mg PO DAILY 09/10/18 09/29/18 Pravastatin Sodium [Pravachol] 40 mg PO HS 09/10/18 09/29/18 Ranolazine [Ranexa] 500 mg PO BID 09/10/18 09/29/18 Tiotropium [Spiriva] 1 puff IH QAM 09/10/18 09/29/18 amLODIPine [Norvasc] 5 mg PO DAILY 09/10/18 09/29/18 traZODone [TraZODone] 50 mg PO HS PRN 09/10/18 09/29/18 Cyanocobalamin (B-12) [Vitamin B12] 1,000 mcg PO DAILY 09/29/18 09/29/18 Ergocalciferol (VITAMIN D2) 50,000 unit PO QWEEK 09/29/18 09/29/18 [Vitamin D2] Ketotifen Fumarate [Zaditor] 1 drop BOTH EYES BID 09/29/18 09/29/18 Previous Rx's Medication Instructions Recorded Furosemide [Lasix] 40 mg PO BID 30 Days #60 tablet 10/06/18 Isosorbide MONOnitrate (24 HR) 60 mg PO DAILY #30 tab.er.24h 10/06/18 [Imdur] Allergies Allergy/AdvReac Type Severity Reaction Status Date / Time niacin Allergy Unknown unknown Verified 09/10/18 22:25 atorvastatin [From Lipitor] AdvReac Unknown stomach Verified 09/10/18 22:25 pain simvastatin [From Zocor] AdvReac Unknown stomach Verified 09/10/18 22:25 pain All systems ED: reviewed and negative except as stated. Review of Systems: As Per HPI Past Medical History - Past Medical History Medical history: Reports: arthritis, CHF, coronary artery disease, dementia, diabetes, hyperlipidemia, hypertension, myocardial infarction, peripheral artery disease, renal disease, thyroid disease, other Surgical history: Reports: angioplasty/stent Psychiatric history: Reports: bipolar, depression, PTSD - Social History Smoking Status: Former smoker Smokeless Tobacco Status: No Alcohol use: Reports: none Drug use: Reports: none Physical Exam Vital Signs Reviewed General: Patient is alert, oriented, and in no acute distress. Head: atraumatic, normocephalic Eye: normal appearance, PERRL, EOMI, no scleral icterus, no conjunctival injection ENT: mucous membranes moist, normal external ear exam Neck: normal inspection, trachea midline, full ROM Chest: normal inspection, symmetric chest rise Respiratory: Good respiratory effort. Bilateral breath sounds are clear without wheezing, crackles, or rhonchi. Cardiovascular: Regular rate and rhythm. No clicks, rubs, gallops, or murmors. Normal heart sounds. Abdomen: Bowel sounds present normoactive. Abdomen is soft, nondistended, and nontender. No guarding or rebound. Musculoskeletal: Spontaneously moving all extremities. Skin: warm, dry, intact. Neuro: GCS 15. No focal neurologic deficits observed. Psych: Patient's affect is appropriate for situation. Course Course Narrative: EKG dated 10/09/2018 at 18:52 interpreted as sinus rhythm with rate of 90. GA 178, dressing 5, QTC 424. Normal axis. Nonspecific ST-T changes. Compared to previous EKG dated 09/28/2018 showing no acute ischemic changes comparison. Defecated and bedside commode. Watery, brown. Sample collected for fecal occult blood cells. Patient's is now bedside. She states she is on Coumadin with Lovenox bridge. Will add PT/INR. Additionally, patient is on Flagyl oral 1 day for supposedly with colitis. Vital Signs Temperature 102.3 F H 10/09/18 18:45 Pulse Rate 90 10/09/18 18:45 Respiratory Rate 18 10/09/18 18:45 Blood Pressure 169/53 10/09/18 18:45 O2 Sat by Pulse Oximetry 98 10/09/18 18:45 Temperature 100.9 F H 10/09/18 22:52 Pulse Rate 80 10/09/18 22:52 Respiratory Rate 18 10/09/18 22:52 Blood Pressure 150/54 10/09/18 22:52 O2 Sat by Pulse Oximetry 96 10/09/18 22:52 Oxygen Delivery Oxygen Delivery Room Air Nausea/Vomiting/Diarrhea - Lab Data Result diagrams: 10/09/18 19:27 10/09/18 19:27 Lab Results 10/09/18 10/09/18 10/09/18 Range/Units 19:24 19:27 19:27 WBC 8.6 (4.3-11.1) K/mcL RBC 2.88 L (4.19-5.50) M/mcL Hgb 8.9 L (12.9-16.9) g/dL Hct 26.1 L (37.5-50.1) % MCV 90.6 (83.0-100.0) fL MCH 30.9 (28.0-33.3) pg MCHC 34.1 (31.6-35.5) g/dL RDW 14.6 H (11.5-14.5) % Plt Count 98 L (140-400) K/mcL MPV 10.9 (9.4-12.4) fL Immature Gran % 0.5 (0-4) % Seg Neutrophils % 82.3 % Lymphocytes % 7.4 % Monocytes % 9.5 % Eosinophils % 0.2 % Basophils % 0.1 % Neutrophils # 7.1 (1.6-8.9) K/mcL Lymphocytes # 0.6 (0.6-4.6) K/mcL Monocytes # 0.8 (0.0-1.3) K/mcL Eosinophils # 0.0 (0.0-0.6) K/mcL Basophils # 0.0 (0.0-0.2) K/mcL Immature Plt Fraction 2.3 (1.1-6.1) % PT 16.0 H (9.4-12.1) Seconds INR 1.4 Sodium 135 L (136-145) mEq/L Potassium 3.8 (3.5-5.1) mEq/L Chloride 101 (98-107) mEq/L Carbon Dioxide 22 L (23-29) mEq/L BUN 55 H (8-23) mg/dL Creatinine 3.38 H (0.70-1.30) mg/dL Est GFR ( Amer) 22 L (> 60) Est GFR (Non-Af Amer) 18 L (> 60) BUN/Creatinine Ratio 16 (6-26) Glucose 161 H (70-105) mg/dL Calculated Osmolality 299 (280-300) Lactic Acid (0.5-2.2) mmol/L Calcium 9.0 (8.6-10.3) mg/dL Troponin I 0.06 H* (< 0.04) ng/mL Stool Occult Bld Scrn (Negative) 10/09/18 10/09/18 10/09/18 Range/Units 19:27 20:14 20:25 WBC (4.3-11.1) K/mcL RBC (4.19-5.50) M/mcL Hgb (12.9-16.9) g/dL Hct (37.5-50.1) % MCV (83.0-100.0) fL MCH (28.0-33.3) pg MCHC (31.6-35.5) g/dL RDW (11.5-14.5) % Plt Count (140-400) K/mcL MPV (9.4-12.4) fL Immature Gran % (0-4) % Seg Neutrophils % % Lymphocytes % % Monocytes % % Eosinophils % % Basophils % % Neutrophils # (1.6-8.9) K/mcL Lymphocytes # (0.6-4.6) K/mcL Monocytes # (0.0-1.3) K/mcL Eosinophils # (0.0-0.6) K/mcL Basophils # (0.0-0.2) K/mcL Immature Plt Fraction (1.1-6.1) % PT (9.4-12.1) Seconds INR Sodium (136-145) mEq/L Potassium (3.5-5.1) mEq/L Chloride (98-107) mEq/L Carbon Dioxide (23-29) mEq/L BUN (8-23) mg/dL Creatinine (0.70-1.30) mg/dL Est GFR ( Amer) (> 60) Est GFR (Non-Af Amer) (> 60) BUN/Creatinine Ratio (6-26) Glucose (70-105) mg/dL Calculated Osmolality (280-300) Lactic Acid 0.8 1.2 (0.5-2.2) mmol/L Calcium (8.6-10.3) mg/dL Troponin I (< 0.04) ng/mL Stool Occult Bld Scrn Negative (Negative)
[2018-10-09 19:42] LABS: Basophils % 0.1 %; Eosinophils % 0.2 %; Hematocrit 26.1 % (37.5-50.1); Hemoglobin 8.9 g/dL (12.9-16.9); Immature Granulocytes % 0.5 % (0-4); Immature Platelets 2.3 % (1.1-6.1); Lymphocytes # 0.6 K/mcL (0.6-4.6); Lymphocytes % 7.4 %; Mean Corpuscular HGB Conc 34.1 g/dL (31.6-35.5); Mean Corpuscular Hemoglobin 30.9 pg (28.0-33.3); Mean Corpuscular Volume 90.6 fL (83.0-100.0); Mean Platelet Volume 10.9 fL (9.4-12.4); Monocytes # 0.8 K/mcL (0.0-1.3); Monocytes % 9.5 %; Neutrophils # 7.1 K/mcL (1.6-8.9); Platelet Count 98 K/mcL (140-400); Red Blood Count 2.88 M/mcL (4.19-5.50); Red Cell Distribution Width 14.6 % (11.5-14.5); Segmented Neutrophils % 82.3 %
[2018-10-09 20:02] LABS: Potassium 3.8 mEq/L (3.5-5.1)
[2018-10-09 20:06] LABS: Troponin I 0.06 ng/mL (< 0.04)
[2018-10-09] MEDS ORDERED: metroNIDAZOLE 500 MG TABLET PO ONE (20:27)
[2018-10-09] MEDS ORDERED: Vancomycin Oral Soln 125 MG/2.5 ML UDC PO STA (20:29)
--- NOTE | 2018-10-09 20:52 | Emergency Department Note ---
Disposition Clinical Impression: Elevated troponin Diarrhea Qualifiers: Diarrhea type: infectious Qualified Code(s): A09 - Infectious gastroenteritis and colitis, unspecified Sepsis Qualifiers: Sepsis type: sepsis due to unspecified organism Qualified Code(s): A41.9 - Sepsis, unspecified organism Disposition: Admitted As Inpatient Referrals: NONE,PCP [Primary Care Provider] - General Adult HPI - General Chief complaint: ED Abdominal Pain Stated complaint: Abdomianl Pain Time Seen by Provider: 10/09/18 18:32 Source: patient, EMS Limitations: no limitations - History of Present Illness Pain Scale: 6 - Related Data Home Medications Medication Instructions Recorded Confirmed Insulin Glargine,Hum.rec.anlog 35 unit SQ HS 01/15/16 09/29/18 [Lantus Solostar] Albuterol Sulfate [Proair Hfa] 2 puff IH Q4H PRN 09/10/18 09/29/18 Allopurinol [Zyloprim] 300 mg PO DAILY 09/10/18 09/29/18 Budesonide/Formoterol 80/4.5 2 puff IH BIDR 09/10/18 09/29/18 [Symbicort 80/4.5] Calcitriol [Rocaltrol] 0.25 mcg PO DAILY 09/10/18 09/29/18 Calcium Acetate [Phos-LO] 667 mg PO TIDWM 09/10/18 09/29/18 Ferrous Gluconate 324 mg PO BID 09/10/18 09/29/18 Gabapentin [Neurontin] 300 mg PO BID 09/10/18 09/29/18 Hydralazine HCl 50 mg PO TID 09/10/18 09/29/18 Insulin ASPART [Novolog Flexpen] 18 unit SQ TIDWM 09/10/18 09/29/18 Ipratropium [place] 1 spr NS BID PRN 09/10/18 09/29/18 Methocarbamol [Robaxin] 500 mg PO Q8HR PRN 09/10/18 09/29/18 Pantoprazole Sodium [Protonix] 40 mg PO DAILY 09/10/18 09/29/18 Pravastatin Sodium [Pravachol] 40 mg PO HS 09/10/18 09/29/18 Ranolazine [Ranexa] 500 mg PO BID 09/10/18 09/29/18 Tiotropium [Spiriva] 1 puff IH QAM 09/10/18 09/29/18 amLODIPine [Norvasc] 5 mg PO DAILY 09/10/18 09/29/18 traZODone [TraZODone] 50 mg PO HS PRN 09/10/18 09/29/18 Cyanocobalamin (B-12) [Vitamin B12] 1,000 mcg PO DAILY 09/29/18 09/29/18 Ergocalciferol (VITAMIN D2) 50,000 unit PO QWEEK 09/29/18 09/29/18 [Vitamin D2] Ketotifen Fumarate [Zaditor] 1 drop BOTH EYES BID 09/29/18 09/29/18 Previous Rx's Medication Instructions Recorded Furosemide [Lasix] 40 mg PO BID 30 Days #60 tablet 10/06/18 Isosorbide MONOnitrate (24 HR) 60 mg PO DAILY #30 tab.er.24h 10/06/18 [Imdur] Allergies Allergy/AdvReac Type Severity Reaction Status Date / Time niacin Allergy Unknown unknown Verified 09/10/18 22:25 atorvastatin [From Lipitor] AdvReac Unknown stomach Verified 09/10/18 22:25 pain simvastatin [From Zocor] AdvReac Unknown stomach Verified 09/10/18 22:25 pain Past Medical History - Past Medical History Medical history: Reports: arthritis, CHF, coronary artery disease, dementia, diabetes, hyperlipidemia, hypertension, myocardial infarction, peripheral artery disease, renal disease, thyroid disease, other Surgical history: Reports: angioplasty/stent Psychiatric history: Reports: bipolar, depression, PTSD - Social History Smoking Status: Former smoker Smokeless Tobacco Status: No Alcohol use: Reports: none Drug use: Reports: none Physical Exam - General Limitations: no limitations General appearance: alert, in no apparent distress Course Vital Signs Temperature 102.3 F H 10/09/18 18:45 Pulse Rate 90 10/09/18 18:45 Respiratory Rate 18 10/09/18 18:45 Blood Pressure 169/53 10/09/18 18:45 O2 Sat by Pulse Oximetry 98 10/09/18 18:45 Temperature 102.3 F H 10/09/18 18:45 Pulse Rate 90 10/09/18 18:45 Respiratory Rate 18 10/09/18 18:45 Blood Pressure 169/53 10/09/18 18:45 O2 Sat by Pulse Oximetry 98 10/09/18 18:45 Oxygen Delivery Oxygen Delivery Nasal Cannula Medical Decision Making - Lab Data Result diagrams: 10/09/18 19:27 10/09/18 19:27 Lab Results 10/09/18 10/09/18 10/09/18 Range/Units 19:27 19:27 19:27 WBC 8.6 (4.3-11.1) K/mcL RBC 2.88 L (4.19-5.50) M/mcL Hgb 8.9 L (12.9-16.9) g/dL Hct 26.1 L (37.5-50.1) % MCV 90.6 (83.0-100.0) fL MCH 30.9 (28.0-33.3) pg MCHC 34.1 (31.6-35.5) g/dL RDW 14.6 H (11.5-14.5) % Plt Count 98 L (140-400) K/mcL MPV 10.9 (9.4-12.4) fL Immature Gran % 0.5 (0-4) % Seg Neutrophils % 82.3 % Lymphocytes % 7.4 % Monocytes % 9.5 % Eosinophils % 0.2 % Basophils % 0.1 % Neutrophils # 7.1 (1.6-8.9) K/mcL Lymphocytes # 0.6 (0.6-4.6) K/mcL Monocytes # 0.8 (0.0-1.3) K/mcL Eosinophils # 0.0 (0.0-0.6) K/mcL Basophils # 0.0 (0.0-0.2) K/mcL Immature Plt Fraction 2.3 (1.1-6.1) % Sodium 135 L (136-145) mEq/L Potassium 3.8 (3.5-5.1) mEq/L Chloride 101 (98-107) mEq/L Carbon Dioxide 22 L (23-29) mEq/L BUN 55 H (8-23) mg/dL Creatinine 3.38 H (0.70-1.30) mg/dL Est GFR ( Amer) 22 L (> 60) Est GFR (Non-Af Amer) 18 L (> 60) BUN/Creatinine Ratio 16 (6-26) Glucose 161 H (70-105) mg/dL Calculated Osmolality 299 (280-300) Lactic Acid 0.8 (0.5-2.2) mmol/L Calcium 9.0 (8.6-10.3) mg/dL Troponin I 0.06 H* (< 0.04) ng/mL Attestation Statement - Attestation Attestation: I examined this patient and my medical decision-making was reviewed with the Resident Physician. I agree with the documented findings, disposition and treatment plan as described except to the extent set forth below. 73 year old male coming from the [place] for possible c.diff and is febrile with an elevated troponin and has ah istory of renal failure that has required dialysis therapy in the past but [facility]. Cory has been sent for admissio nto the hospitla after speakin to his dialysis doctor Eriberto for further evlaution of his diarrhea. fecal hemoccult is pending and stool sample has been sent. Patient is otehrwise stable at this time and we will continue with IV therapy ABX and CT scan of his abodmen and admit to medicine.
[2018-10-09 20:54] LABS: INR 1.4
[2018-10-09] MEDS ORDERED: Aspirin 325 MG TABLET PO ONE (21:26)
[2018-10-10] MEDS ORDERED: Naloxone 0.4 MG/ML INJ IVP PRN (00:20)
[2018-10-10] MEDS ORDERED: Acetaminophen 325 MG TABLET PO PRN (00:23)
[2018-10-10] MEDS ORDERED: *HR* Heparin 5,000 UNIT/ML VIAL IVP PRN (00:35)
[2018-10-10] MEDS ORDERED: *HR* Heparin 5,000 UNIT/ML VIAL IVP ONE (00:35)
[2018-10-10] MEDS: Heparin 25,000 UNIT/250 ML D5W 25,000 UNIT/250 ML IV.SOLN IVC SCH ×2 (01:25→17:20)
[2018-10-10] MEDS: Acetaminophen 325 MG TABLET PO PRN ×2 (01:28→17:22)
[2018-10-10 02:05] LABS: Hemoglobin 8.7 g/dL (12.9-16.9); Red Cell Distribution Width 14.5 % (11.5-14.5)
[2018-10-10 02:07] LABS: Hematocrit 25.4 % (37.5-50.1); Mean Corpuscular HGB Conc 34.3 g/dL (31.6-35.5); Mean Corpuscular Hemoglobin 31.2 pg (28.0-33.3); Mean Platelet Volume 10.1 fL (9.4-12.4); Red Blood Count 2.79 M/mcL (4.19-5.50)
[2018-10-10 02:13] LABS: Heparin anti-factor XA UFH 0.91 IU/mL (0.30-0.70); INR 1.7; Prothrombin Time 18.9 Seconds (9.4-12.1)
[2018-10-10 02:24] LABS: Calcium 8.5 mg/dL (8.6-10.3); Potassium 3.5 mEq/L (3.5-5.1)
--- NOTE | 2018-10-10 05:16 | Internal Med History&Physical ---
Date of Encounter: 10/10/18 Time of Encounter: 04:20 Internal Medicine - H&P: HPI Chief complaint: C. difficile infection Admitted From: Emergency Dept Plans for Post Hospital Care: Home History of present illness: Mr. Sandoval is a 73 year old male Patient presented to the emergency room with a three-day history of nausea and loose stools. He has had approximately 10 episodes per day, of nonbloody non- dark stools. He was recently in the hospital and was treated for acute renal failure with temporary dialysis. He was then to follow up with nephrology outpatient. He has a history of cirrhosis, diabetes, and stage IV kidney disease at baseline. He was also found to have a UTI at that time and was treated with ceftriaxone. After being discharged he presented to the MD and was found to have a right lower extremity DVT. He was started on Coumadin with a Lovenox bridge. His is at bedside, and helps with details of his history. Since then he has continued to have multiple episodes of diarrhea, unlike anything he has had before. His convinced him to come to the hospital for further evaluation. In the emergency room patient's initial temperature was 102.3 with a pulse of 90 and respiratory rate of 18. He was given a dose of Tylenol 1 g and it improved to 100.7. Patient's initial CBC showed a hemoglobin of 8.9 which is his baseline, INR was 1.4, BMP shows sodium of 135 and a creatinine of 3.38. At the time of discharge, patient's hemoglobin was 3.04. Patient's GFR was 18, while at time of discharge previously his GFR was 20. Patient's initial troponin was also elevated at 0.06, and lactic acid was 0.8 and on recheck 1.2. His stool occult blood test was negative, however a stool C. difficile toxin B gene was positive. An abdominal CT was performed and showed acute pancolitis, cirrhosis and splenomegaly. He was given a dose of aspirin 325, metronidazole 500 mg by mouth and vancomycin 125 mg by mouth 4 times a day. EKG was performed and showed sinus rhythm with nonspecific ST changes when compared to his previous EKG there was no acute change. He was sent to the medical floor for further management. Upon my evaluation, patient is lying in the hospital bed in mild distress. He says that he has abdominal pain particularly in his lower abdomen. He has had multiple bowel movements since his arrival. His is at bedside and has been caring for him. Patient denies chest pain, nausea and vomiting. He has never had diarrhea like this before. He is a full code. Past Med Surg Social Fam HX - Past Medical History Medical history: arthritis, CHF, coronary artery disease, dementia, diabetes, hyperlipidemia, hypertension, myocardial infarction, peripheral artery disease, renal disease, other Additional medical history: gout Psychiatric history: bipolar, depression, PTSD - Past Surgical History Surgical History: angioplasty/stent Additional surgical history: penile implant - Social History Smoking Status: Former smoker Smokeless Tobacco Status: No Alcohol use: none Drug use: none - Family History Father Living Status: Hx Family Cardiac Disorders: Yes Internal Medicine - H&P: Meds Insulin Glargine,Hum.rec.anlog [Lantus Solostar] 35 unit SQ HS 01/15/16 [History] Albuterol Sulfate [Proair Hfa] 2 puff IH Q4H PRN 09/10/18 [History] Allopurinol [Zyloprim] 300 mg PO DAILY 09/10/18 [History] Budesonide/Formoterol 80/4.5 [Symbicort 80/4.5] 2 puff IH BIDR 09/10/18 [History] Calcitriol [Rocaltrol] 0.25 mcg PO DAILY 09/10/18 [History] Calcium Acetate [Phos-LO] 667 mg PO TIDWM 09/10/18 [History] Ferrous Gluconate 324 mg PO BID 09/10/18 [History] Gabapentin [Neurontin] 300 mg PO BID 09/10/18 [History] Hydralazine HCl 50 mg PO TID 09/10/18 [History] Insulin ASPART [Novolog Flexpen] 18 unit SQ TIDWM 09/10/18 [History] Ipratropium Central 1 spr NS BID PRN 09/10/18 [History] Methocarbamol [Robaxin] 500 mg PO Q8HR PRN 09/10/18 [History] Pantoprazole Sodium [Protonix] 40 mg PO DAILY 09/10/18 [History] Pravastatin Sodium [Pravachol] 40 mg PO HS 09/10/18 [History] Ranolazine [Ranexa] 500 mg PO BID 09/10/18 [History] Tiotropium [Spiriva] 1 puff IH QAM 09/10/18 [History] amLODIPine [Norvasc] 5 mg PO DAILY 09/10/18 [History] traZODone [TraZODone] 50 mg PO PRN PRN 09/10/18 [History] Cyanocobalamin (B-12) [Vitamin B12] 1,000 mcg PO DAILY 09/29/18 [History] Ergocalciferol (VITAMIN D2) [Vitamin D2] 50,000 unit PO QWEEK 09/29/18 [History] Ketotifen Fumarate [Zaditor] 1 drop BOTH EYES BID 09/29/18 [History] Furosemide [Lasix] 40 mg PO BID 30 Days #60 tablet 10/06/18 [Rx] Isosorbide MONOnitrate (24 HR) [Imdur] 60 mg PO DAILY #30 tab.er.24h 10/06/18 [Rx] Allergy/AdvReac Type Severity Reaction Status Date / Time niacin Allergy Unknown unknown Verified 09/10/18 22:25 atorvastatin [From Lipitor] AdvReac Unknown stomach Verified 09/10/18 22:25 pain simvastatin [From Zocor] AdvReac Unknown stomach Verified 09/10/18 22:25 pain All Systems PM: A 10-system review of systems was performed and is negative for pertinent findings except as documented above in the HPI. - Constitutional Vitals: Temp Pulse Resp BP Pulse Ox 103.0 F H 91 16 153/56 97 10/10/18 04:13 10/10/18 04:13 10/10/18 04:13 10/10/18 04:13 10/10/18 04:13 General appearance: Present: cooperative, mild distress, A&O X 3, pleasant, answers questions appropriately Exam: - - Head Head exam: Present: normal inspection - Eye Eye exam: Present: EOMI, normal appearance - Respiratory Respiratory exam: Present: CTAB. Absent: rales, respiratory distress, rhonchi, wheezes - Cardiovascular Cardiovascular exam: Present: RRR. Absent: diastolic murmur, systolic murmur - GI/Abdominal GI/Abdominal exam: Present: normal bowel sounds, soft, tenderness. Absent: guarding - Extremities Exam Extremities exam: Present: tenderness, warm, radial pulses palpable and symmetrical. Absent: pedal edema Additional comments: Mild tenderness right lower extremity, no significant swelling when compared to the left. - Neurological Exam Neurological exam: Present: no focal deficits, strengths equal and symetr throughout. Absent: motor sensory deficit, facial droop, speech deficit - Skin Skin exam: Present: dry, normal color, warm Internal Med - H&P Results - Labs CBC & Chem 7: 10/10/18 01:55 10/10/18 01:55 Labs: Short CBC 10/09/18 10/10/18 Range/Units 19:27 01:55 WBC 8.6 7.4 (4.3-11.1) K/mcL Hgb 8.9 L 8.7 L (12.9-16.9) g/dL Hct 26.1 L 25.4 L (37.5-50.1) % Plt Count 98 L 91 L (140-400) K/mcL Neutrophils # 7.1 (1.6-8.9) K/mcL BMP 10/09/18 10/10/18 19:27 01:55 Sodium 135 L 135 L Potassium 3.8 3.5 Chloride 101 102 Carbon Dioxide 22 L 20 L BUN 55 H 55 H Creatinine 3.38 H 3.52 H Glucose 161 H 134 H Calcium 9.0 8.5 L Cardiac Enzymes 10/09/18 10/10/18 Range/Units 19:27 01:55 Troponin I 0.06 H* 0.07 H* (< 0.04) ng/mL - Impressions ITS Impressions Abdomen/Pelvis CT 10/09/18 20:41 IMPRESSION: Acute pancolitis. Cirrhosis and splenomegaly. D/ / Ollie Steward MD / Ollie Steward MD Interpreting Provider: Ollie Steward MD - Assessment and Plan (1) C. difficile diarrhea Current Visit: Yes Status: Acute Assessment and plan: Patient's C. difficile test was positive. He received antibiotics while in the hospital previously. He received a dose of vancomycin as well as Flagyl in the emergency room orally. Continue oral vancomycin Contact precautions Monitor for worsening signs of infection (2) Fever Current Visit: Yes Status: Acute Assessment and plan: Likely secondary to C. difficile infection. Patient received 1 g of Tylenol in the ER which did improve his fever however it returned. Patient received additional 650 mg dose of Tylenol which seems to not have had as much of an effect on his fever. Due to his cirrhotic liver and kidney failure we will avoid overdosing him on Tylenol and NSAIDs. Cooling blanket Consider ice packs if fever not improving Continue Tylenol, keeping total dose within 24 hours at less than 3 g. Qualifiers: Fever type: unspecified Qualified Code(s): R50.9 - Fever, unspecified (3) Elevated troponin Current Visit: Yes Status: Acute Assessment and plan: Patient's initial troponin was 0.06, increasing to 0.07. Patient denies chest pain, and EKG showed no acute changes. Continue to trend troponins hall monitor (4) Cirrhosis Current Visit: No Status: Chronic Assessment and plan: Avoid hepatotoxic medications Qualifiers: Hepatic cirrhosis type: unspecified hepatic cirrhosis Ascites presence: without ascites Qualified Code(s): K74.60 - Unspecified cirrhosis of liver (5) Diabetes mellitus Current Visit: No Status: Chronic Assessment and plan: Patient is insulin-dependent diabetic Continue to monitor sugars with meals and at night Low-dose insulin siding scale as needed Hold home meds Diabetic/renal diet Qualifiers: Diabetes mellitus type: type 2 Diabetes mellitus oil heaterman insulin use: with oil heaterman use Diabetes mellitus complication status: with kidney complications Diabetes mellitus complication detail: with chronic kidney disease Chronic kidney disease stage: stage 5, not on chronic dialysis Qualified Code(s): E11.22 - Type 2 diabetes mellitus with diabetic chronic kidney disease; N18.5 - Chronic kidney disease, stage 5; Z79.4 - [facility] (current) use of insulin (6) ARF (acute renal failure) Current Visit: No Status: Suspected Assessment and plan: Patient recently discharged from the hospital on October 06 after being treated for acute renal failure. His labs improved slightly back to his baseline but they continue to be elevated. Likely exacerbated by patient's diarrhea and possible dehydration. Patient also has history of CHF as well. He required tem porary dialysis during his previous admission. Continue to monitor renal function Avoid nephrotoxic medications Renally dose meds Nephrology consult in the morning Qualifiers: Acute renal failure type: with other specified pathological lesion Qualified Code(s): N17.8 - Other acute kidney failure (7) DVT (deep venous thrombosis) Current Visit: Yes Status: Acute Assessment and plan: According to patient's , patient was diagnosed with a DVT right lower extremity at the MD. He was started on Coumadin as well as a Lovenox bridge. Due to his kidney function, we will is continue the Lovenox and start him on heparin drip with Coumadin being dosed by pharmacy. Discontinue heparin when INR is therapeutic Qualifiers: DVT location: lower extremity Affected thrombotic vein of extremity: unspecified vein of extremity Chronicity: acute Laterality: right Qualified Code(s): I82.401 - Acute embolism and thrombosis of unspecified deep veins of right lower extremity - Time Spent With Patient Total time spent is greater than 50% in coordination of care (as documented) at patient's floor/unit and/or counseling patient: Greater than 35 minutes
--- NOTE | 2018-10-10 08:11 | Nephrology Consult Note ---
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 This is his third [id number]-[id number] admission in which he was previously treated with temporary HD while hospitalized then the dialysis was stopped but he continues to bounce-back with BUCKY. I suspect his C diff diarrhea is the primary contributor to the BUCKY for this hospitalization. He had received IVF, per report at the [place] in [place], [place]. I recommend gently resuming IVF and trying to hold off and not start HD again (for a third time) this weekend He has mild hyponatremia, and I suspect this a hypovolemic hyponatremia: IVF. Anemia, likely multifactorial. Goal Hgb is 10-11 with advanced CKD. He has colitis, so there could be a GIB component as well -- transfusion parameters -- as per primary. I'll monitor for potentially adding EPO and/or IV iron. Metabolic acidosis: nonanion gap, likely from BUCKY on CKD and diarrhea. IVF for now, but not severe enough for a bicarb gtt. Continue to follow a renal protective strategy with strict I/Os, daily weights, dosing renally cleared Rx by GFR/CrC, avoidance of Nephrotoxins. Thank you for consulting the [facility]; will follow with you. Qualifiers: Acute renal failure type: unspecified Qualified Code(s): N17.9 - Acute kidney failure, unspecified (2) CKD (chronic kidney disease), stage IV Current Visit: Yes Status: Chronic (3) C. difficile diarrhea Current Visit: Yes Status: Acute (4) DVT (deep venous thrombosis) Current Visit: Yes Status: Acute Qualifiers: DVT location: lower extremity Affected thrombotic vein of extremity: unspecified vein of extremity Chronicity: acute Laterality: right Qualified Code(s): I82.401 - Acute embolism and thrombosis of unspecified deep veins of right lower extremity (5) Metabolic acidosis Current Visit: Yes Status: Acute (6) Hyponatremia Current Visit: Yes Status: Acute (7) Anemia Current Visit: No Status: Chronic Qualifiers: Anemia type: due to chronic kidney disease Chronic kidney disease stage: stage 4 (severe) Qualified Code(s): N18.4 - Chronic kidney disease, stage 4 (severe); D63.1 - Anemia in chronic kidney disease (8) Anemia Current Visit: No Status: Chronic Qualifiers: Anemia type: unspecified type Qualified Code(s): D64.9 - Anemia, unspecified (9) HTN (hypertension) Current Visit: No Status: Chronic Qualifiers: Hypertension type: essential hypertension Qualified Code(s): I10 - Essential (primary) hypertension History of Present Illness - Reason for Consult Consult date: 10/09/18 Acute Kidney Injury, Chronic Kidney Disease Requesting physician: Az Bullard - Chief Complaint Recurrent BUCKY on CKD - History of Present Illness 73 y/o WM with a pmh of CKD and prior AKIs who presented with dramatically worsening diarrhea. He was just discharged last week after having been on temporary HD, but while at the [place], he was noted to have diarrhea, abd pain, BUCKY. He reported having abd pain and poor appetite. He did not affirm taking NSAIDs. Past Med Surg Social Fam HX - Past Medical History Medical history: arthritis, CHF, coronary artery disease, dementia, diabetes, hyperlipidemia, hypertension, myocardial infarction, peripheral artery disease, renal disease, other Additional medical history: gout Psychiatric history: bipolar, depression, PTSD - Past Surgical History Surgical History: angioplasty/stent Additional surgical history: penile implant - Social History Smoking Status: Former smoker Smokeless Tobacco Status: No Alcohol use: none Drug use: none - Family History Father Living Status: Hx Family Cardiac Disorders: Yes Medications and Allergies Insulin Glargine,Hum.rec.anlog [Lantus Solostar] 35 unit SQ HS 01/15/16 [History] Albuterol Sulfate [Proair Hfa] 2 puff IH Q4H PRN 09/10/18 [History] Allopurinol [Zyloprim] 300 mg PO DAILY 09/10/18 [History] Budesonide/Formoterol 80/4.5 [Symbicort 80/4.5] 2 puff IH BIDR 09/10/18 [History] Calcitriol [Rocaltrol] 0.25 mcg PO DAILY 09/10/18 [History] Calcium Acetate [Phos-LO] 667 mg PO TIDWM 09/10/18 [History] Ferrous Gluconate 324 mg PO BID 09/10/18 [History] Gabapentin [Neurontin] 300 mg PO BID 09/10/18 [History] Hydralazine HCl 50 mg PO TID 09/10/18 [History] Insulin ASPART [Novolog Flexpen] 18 unit SQ TIDWM 09/10/18 [History] Ipratropium Mccune 1 spr NS BID PRN 09/10/18 [History] Methocarbamol [Robaxin] 500 mg PO Q8HR PRN 09/10/18 [History] Pantoprazole Sodium [Protonix] 40 mg PO DAILY 09/10/18 [History] Pravastatin Sodium [Pravachol] 40 mg PO HS 09/10/18 [History] Ranolazine [Ranexa] 500 mg PO BID 09/10/18 [History] Tiotropium [Spiriva] 1 puff IH QAM 09/10/18 [History] amLODIPine [Norvasc] 5 mg PO DAILY 09/10/18 [History] traZODone [TraZODone] 50 mg PO HS PRN 09/10/18 [History] Cyanocobalamin (B-12) [Vitamin B12] 1,000 mcg PO DAILY 09/29/18 [History] Ergocalciferol (VITAMIN D2) [Vitamin D2] 50,000 unit PO QWEEK 09/29/18 [History] Ketotifen Fumarate [Zaditor] 1 drop BOTH EYES BID 09/29/18 [History] Furosemide [Lasix] 40 mg PO BID 30 Days #60 tablet 10/06/18 [Rx] Isosorbide MONOnitrate (24 HR) [Imdur] 60 mg PO DAILY #30 tab.er.24h 10/06/18 [Rx] Carvedilol [Coreg] 25 mg PO BID 10/11/18 [History] Enoxaparin [Lovenox] 100 mg SQ DAILY 10/11/18 [History] metroNIDAZOLE [Metronidazole] 500 mg PO TID 10/11/18 [History] Allergy/AdvReac Type Severity Reaction Status Date / Time niacin Allergy Unknown unknown Verified 09/10/18 22:25 atorvastatin [From Lipitor] AdvReac Unknown stomach Verified 09/10/18 22:25 pain simvastatin [From Zocor] AdvReac Unknown stomach Verified 09/10/18 22:25 pain Review of Systems All Systems: reviewed and no additional remarkable complaints except as stated Exam - Vital Signs Vital signs: Initial Vital Signs Temp Pulse Resp BP Pulse Ox 102.3 F H 90 18 169/53 98 10/09/18 18:45 10/09/18 18:45 10/09/18 18:45 10/09/18 18:45 10/09/18 18:45 Vital Signs - Last 8 Hours Temp Pulse Resp BP Pulse Ox 10/10/18 07:45 100.9 F H 68 16 145/63 95 10/10/18 04:13 103.0 F H 91 16 153/56 97 10/10/18 00:11 100.7 F H 94 16 164/66 94 Intake and Output 10/09/18 10/10/18 10/10/18 23:59 07:59 15:59 Intake Total 0 / 0 Output Total 150 / 150 Balance -150 / -150 Intake: Oral 0 / 0 Output: Urine 150 / 150 Other: Stool Size Small Stool Consistency liquid Stool Color Brown # Voids 1 # Bowel Movements 1 # Bowel Movement Diapers 1 Weight 116.12 kg 110 kg Patient Weight 10/10/18 23:59 Weight 110 kg - General Appearance General appearance: well-developed, well-nourished, appears started age EENT: ATNC, PERRL, mucous membranes dry Neck: supple Respiratory: course breath sounds Cardiology: regular rate, normal S1, normal S2 Gastrointestinal: normoactive bowel sounds, tenderness, no guarding Integumentary: no rash, warm and dry Neurologic: no focal deficit, no asterixis, alert and oriented x3 Musculoskeletal: no deformities, no erythema Psychiatric: mood/affect appropriate, cooperative Results - Lab Results 10/11/18 04:23 10/11/18 04:23 Most recent lab results Calcium 8.5 mg/dL (8.6-10.3) L 10/10/18 01:55 Consult Discharge Plan - Plan Referrals: NONE,PCP [Primary Care Provider] -
[2018-10-10] MEDS: Vancomycin Oral Soln 125 MG/2.5 ML UDC PO SCH ×4 (10:02→20:46)
[2018-10-10] MEDS: 0.9 % Sodium Chloride 1,000 ML IVC SCH (12:58)
[2018-10-10] MEDS ORDERED: Dextrose Gel 15 GM/37.5 ML TUBE PO PRN ×2 (13:01)
[2018-10-10] MEDS ORDERED: D5% in Water 1,000 ML IVC PRN (13:01)
[2018-10-10] MEDS ORDERED: *HR* Dextrose 50 % in Water (Syg) 50 ML SYRINGE IVP PRN (13:01)
[2018-10-10] MEDS ORDERED: Dextrose 4 GM Chewable Tablets PO PRN ×2 (13:01)
--- NOTE | 2018-10-10 13:08 | Event Note ---
Date of Encounter: 10/10/18 Time of Encounter: 13:05 Patient seen and examined at bedside. Patient reports persistent diarrhea. He reports mild abdominal pain that is stable. Denies fever, chills. Abdomen: Diffusely tender, soft, nondistended. Normoactive bowel sounds. No guarding or rigidity. Assessment and plan: C. difficile colitis: First occurrence, continue by mouth vancomycin BUCKY on CKD: Patient has had multiple episodes of BUCKY including 2 episodes requiring temporary dialysis. Appreciate nephrology recommendations, continue gentle fluid hydration DVT: Previously diagnosed, on warfarin as an outpatient, INRs up to therapeutic. Continue warfarin and heparin, stop heparin once INR is 2
[2018-10-10 17:13] LABS: Heparin anti-factor XA UFH 0.32 IU/mL (0.30-0.70); INR 1.6; Prothrombin Time 18.3 Seconds (9.4-12.1)
[2018-10-10] MEDS: Insulin LISPRO 300 UNITS/3 ML VIAL SQ SCH ×2 (17:21→20:50)
[2018-10-10] MEDS ORDERED: Warfarin perPT PO PRN (18:00)
[2018-10-10] MEDS ORDERED: Acetaminophen IV 500 MG/50 ML INFUS..BTL IVPB ONE (22:20)
[2018-10-11] MEDS: 0.9 % Sodium Chloride 1,000 ML IVC SCH ×2 (03:40→17:39)
[2018-10-11 04:49] LABS: Eosinophils # 0.1 K/mcL (0.0-0.6); Hematocrit 28.3 % (37.5-50.1); Hemoglobin 9.5 g/dL (12.9-16.9); Mean Corpuscular HGB Conc 33.6 g/dL (31.6-35.5); Mean Corpuscular Hemoglobin 30.8 pg (28.0-33.3); Mean Corpuscular Volume 91.9 fL (83.0-100.0); Mean Platelet Volume 11.2 fL (9.4-12.4); Platelet Count 111 K/mcL (140-400); Red Blood Count 3.08 M/mcL (4.19-5.50); Red Cell Distribution Width 14.8 % (11.5-14.5)
[2018-10-11 05:07] LABS: % Iron Saturation 7 % (20-55); Iron 13 mcg/dL (65-175); Transferrin 140 mg/dL (203-362)
[2018-10-11 05:10] LABS: Calcium 7.8 mg/dL (8.6-10.3); Potassium 3.2 mEq/L (3.5-5.1)
[2018-10-11 06:01] LABS: Large Platelets Present (Not Present); Lymphocytes # 0.5 K/mcL (0.6-4.6); Monocytes # 0.8 K/mcL (0.0-1.3); Neutrophils # 10.2 K/mcL (1.6-8.9); Platelet Estimate Slight Decrease (Normal); Toxic Granulation Present (Not Present)
[2018-10-11] MEDS: Insulin LISPRO 300 UNITS/3 ML VIAL SQ SCH ×4 (08:34→22:19)
[2018-10-11] MEDS: Vancomycin Oral Soln 125 MG/2.5 ML UDC PO SCH ×4 (10:15→20:28)
--- NOTE | 2018-10-11 10:41 | Nephrology Progress Note ---
Date of Encounter: 10/11/18 Time of Encounter: 10:10 - Assessment and Plan (1) Acute kidney failure Current Visit: No Status: Acute Stable BUCKY on CKD stage IV, and he was not uremic/hyperkalemic/or fluid overloaded so I do not recommend starting [employer] today. C diff colitis: He has ongoing moderate to severe Abd pain still yet today. As per primary. Anemia, likely multifactorial. Goal Hgb is 10-11 with advanced CKD. He has colitis, so there could be a GIB component as well -- transfusion parameters -- as per primary. I'll monitor for potentially adding EPO and/or IV iron. Metabolic acidosis: nonanion gap, likely from BUCKY on CKD and diarrhea. IVF for now, but not severe enough for a bicarb gtt. Continue to follow a renal protective strategy with strict I/Os, daily weights, dosing renally cleared Rx by GFR/CrC, avoidance of Nephrotoxins. Will follow with you. Qualifiers: Acute renal failure type: unspecified Qualified Code(s): N17.9 - Acute kidney failure, unspecified (2) Hypokalemia Current Visit: Yes Status: Acute Worsening over the last few days, likely from his inc'd diarrhea from C diff. I recommend KCl 40mEq PO x1 and to monitor electrolytes closely tomorrow including Mg. Will also check Phos. (3) CKD (chronic kidney disease), stage IV Current Visit: Yes Status: Chronic (4) C. difficile diarrhea Current Visit: Yes Status: Acute (5) DVT (deep venous thrombosis) Current Visit: Yes Status: Acute Qualifiers: DVT location: lower extremity Affected thrombotic vein of extremity: unspecified vein of extremity Chronicity: acute Laterality: right Qualified Code(s): I82.401 - Acute embolism and thrombosis of unspecified deep veins of right lower extremity (6) Metabolic acidosis Current Visit: Yes Status: Acute (7) Hyponatremia Current Visit: Yes Status: Acute (8) Anemia Current Visit: No Status: Chronic Qualifiers: Anemia type: due to chronic kidney disease Chronic kidney disease stage: stage 4 (severe) Qualified Code(s): N18.4 - Chronic kidney disease, stage 4 (severe); D63.1 - Anemia in chronic kidney disease (9) Anemia Current Visit: No Status: Chronic Qualifiers: Anemia type: unspecified type Qualified Code(s): D64.9 - Anemia, unspecified (10) HTN (hypertension) Current Visit: No Status: Chronic Qualifiers: Hypertension type: essential hypertension Qualified Code(s): I10 - Essential (primary) hypertension Subjective Principal diagnosis: BUCKY on CKD Interval history: Pt was s/e and he did not affirm eating much today d/t his ongoing abd pain, which he said was in his lower abd. Objective - Vital Signs Vital signs: Vital Signs Temp Pulse Resp BP Pulse Ox 10/11/18 08:03 99.8 F H 110 20 154/63 94 10/11/18 05:02 99.9 F H 110 14 123/63 96 10/10/18 22:50 99.2 F 75 16 167/66 98 10/10/18 18:35 101.9 F H 91 16 138/57 93 10/10/18 16:49 102.1 F H 91 18 165/69 93 10/10/18 12:28 99.1 F 86 18 161/64 95 Intake and Output 10/10/18 10/11/18 10/11/18 22:59 07:59 15:59 Intake Total Output Total Balance Intake: IV Fluids 0.9 % Sodium Chloride 1,000 ML @ 75 mls/hr IVC .[id number] [facility] Rx #:[id number] Heparin 25,000 UNIT/250 ML D5W 25,000 unit In 250 ml @ 14 UNIT /KG/HR 15.4 mls/hr IVC .[id number] [facility] Rx#:[id number] Ofirmev 1,000 mg/100 ml 500 mg In 50 ml @ 200 mls/hr IVPB ONCE ONE Rx#:[id number] Oral Output: Urine Other: Stool Size Moderate Stool Consistency loose Stool Color Green # Voids 1 # Bowel Movements 1 # Bowel Movement Diapers Blood Glucose* 137 - General Appearance Exam: General appearance: well-developed, well-nourished, appears started age EENT: ATNC, PERRL, mucous membranes dry Neck: supple Respiratory: course breath sounds Cardiology: regular rate, normal S1, normal S2 Gastrointestinal: normoactive bowel sounds, tenderness, no guarding Integumentary: no rash, warm and dry Neurologic: no focal deficit, no asterixis, alert and oriented x3 Musculoskeletal: no deformities, no erythema Psychiatric: mood/affect appropriate, cooperative - Lab 10/11/18 04:23 10/11/18 04:23 Most recent lab results Calcium 7.8 mg/dL (8.6-10.3) L 10/11/18 04:23 Consult Discharge Plan - Plan Referrals: NONE,PCP [Primary Care Provider] -
--- NOTE | 2018-10-11 11:13 | Internal Med Progress Note ---
Hospitalist Progress Note - Encounter Date of Encounter: 10/11/18 Time of Encounter: 11:10 - Subjective Interval History: Patient seen and examined at bedside. Patient states he feels worse today. He feels like his abdominal pain is worse and he is more distended. He states his diarrhea has become less frequent. Denies nausea or vomiting. - Exam Vitals: Temp Pulse Resp BP Pulse Ox 99.8 F H 110 20 154/63 94 10/11/18 08:03 10/11/18 08:03 10/11/18 08:03 10/11/18 08:03 10/11/18 08:03 Exam: Gen.: Alert and oriented 3. No acute distress. Appears uncomfortable Heart: Tachycardia. Regular rhythm, no murmurs, rubs, or gallops Lungs: Clear to auscultation bilaterally, no rales, rhonchi, wheezes Abdomen: Soft, distended, diffusely tender. Hypoactive bowel sounds Extremities: No swelling, erythema, warmth, edema noted - Assessment and Plan (1) Sepsis Current Visit: Yes Status: Acute Assessment and Plan: Secondary to C. difficile colitis. Patient has tachycardia and leukocytosis with bandemia. Patient did receive fluids on admission, blood cultures no growth today. Continue vancomycin. (2) C. difficile diarrhea Current Visit: Yes Status: Acute Assessment and Plan: C. difficile toxin positive. Diarrhea has slowed down but abdominal distention is worsening. Concerning for developing toxic megacolon. Did discuss with aviation electrical technician surgeon who will see the patient consultation. Repeat CT abdomen/pelvis. Continue oral vancomycin. If not improved in the next couple days consider infectious disease consult. (3) CKD (chronic kidney disease), stage IV Current Visit: Yes Status: Chronic Assessment and Plan: Patient has stage IV chronic kidney disease and has had multiple episodes of acute kidney injury requiring temporary hemodialysis. GFR is 18, stable since admission. Nephrology following. Continue gentle IV fluid hydration per nephrology recommendations. No indication for acute dialysis at this time. (4) DVT (deep venous thrombosis) Current Visit: Yes Status: Acute Assessment and Plan: Patient has recently diagnosed DVT and is being treated with warfarin. Upon arrival patient and subtherapeutic INR so heparin was initiated with a bridge back to warfarin. Given the concerns for worsening C. difficile colitis and surgical consultation will hold warfarin for now. Continue heparin drip closely monitor for signs of active bleeding. Patient is asymptomatic from his DVT at this time. (5) Hypokalemia Current Visit: Yes Status: Acute Assessment and Plan: Potassium 3.2 today. Likely due to diarrhea. Replace orally. (6) HTN (hypertension) Current Visit: No Status: Chronic Assessment and Plan: Blood sugar mildly elevated but stable. Continue home medications. (7) IDDM (insulin dependent diabetes mellitus) Current Visit: No Status: Chronic Assessment and Plan: Blood sugar sugars under acceptable control. Continue sliding scale insulin. (8) Cirrhosis Current Visit: No Status: Chronic Assessment and Plan: History of. Mild thrombocytopenia. No signs of active bleeding. Appears well compensated. No ascites appreciated. (9) Anemia Current Visit: No Status: Chronic Assessment and Plan: Likely anemia of CKD but also iron deficiency. After acute illness patient will need iron replacement. No signs of active bleeding we will closely monitor as the patient is on heparin drip. - Time Spent with Patient Total time spent is greater than 50% in coordination of care (as documented) at patient's floor/unit and/or counseling patient: Internal Medicine: Result - Labs CBC & Chem 7: 10/11/18 04:23 10/11/18 04:23 Labs: Short CBC 10/11/18 Range/Units 04:23 WBC 11.6 H D (4.3-11.1) K/mcL Hgb 9.5 L (12.9-16.9) g/dL Hct 28.3 L (37.5-50.1) % Plt Count 111 L (140-400) K/mcL Neutrophils # 10.2 H (1.6-8.9) K/mcL BMP 10/11/18 04:23 Sodium 137 Potassium 3.2 L Chloride 105 Carbon Dioxide 19 L BUN 57 H Creatinine 3.37 H Glucose 171 H Calcium 7.8 L - ABG Interpretation ABG results: PT/INR, D-dimer PT 18.3 Seconds (9.4-12.1) H 10/10/18 16:07 Consult Discharge Plan - Plan Referrals: NONE,PCP [Primary Care Provider] - (1) Sepsis Qualifiers: Sepsis type: sepsis due to unspecified organism Qualified Code(s): A41.9 - Sepsis, unspecified organism (4) DVT (deep venous thrombosis) Qualifiers: DVT location: lower extremity Affected thrombotic vein of extremity: unsp ecified vein of extremity Chronicity: acute Laterality: right Qualified Code(s): I82.401 - Acute embolism and thrombosis of unspecified deep veins of right lower extremity (6) HTN (hypertension) Qualifiers: Hypertension type: essential hypertension Qualified Code(s): I10 - Essential (primary) hypertension (8) Cirrhosis Qualifiers: Hepatic cirrhosis type: unspecified hepatic cirrhosis Ascites presence: wit hout ascites Qualified Code(s): K74.60 - Unspecified cirrhosis of liver (9) Anemia Qualifiers: Anemia type: due to chronic kidney disease Chronic kidney disease stage: stage 4 (severe) Qualified Code(s): N18.4 - Chronic kidney disease, stage 4 (severe); D63.1 - Anemia in chronic kidney disease
[2018-10-11] MEDS: Heparin 25,000 UNIT/250 ML D5W 25,000 UNIT/250 ML IV.SOLN IVC SCH (11:16)
[2018-10-11 12:27] LABS: INR 1.5; Prothrombin Time 17.1 Seconds (9.4-12.1)
[2018-10-11] MEDS ORDERED: MetroNIDAZOLE 500 MG/100 ML 500 MG/100 ML BAG IVPB SCH (18:00)
--- NOTE | 2018-10-11 18:34 | General Surgery Consult Note ---
<Lauren Munoz - Last Filed: 10/11/18 18:32> Date of Encounter: 10/11/18 Time of Encounter: 13:55 Assessment and Plan (1) C. difficile colitis Current Visit: Yes Status: Acute Diarrhea is improving. Abdominal pain is worsening. Distention. Recheck CT Continue PO vanc Clear liquid diet Serial abdominal exam Pain control prn GI and DVT prophylaxis History of Present Illness Consult date: 10/11/18 Reason for consult: abdominal pain Requesting physician: Luis Eduardo Dixon History of present illness: 73 year old male with past medical history of AR, CAD, PAD, HTN, HLD, diabetes, CHF, CKD4, cirrhosis, dementia. Surgical history of cardiac stent, penile implant. Denies any abdominal surgery. Patient complains of diarrhea and abdominal pain. Diarrhea started a week ago. Patient had had a recent hospitalization where he was treated for UTI with rocephin. After discharge, he started having diarrhea. No blood. Patient presented to ED. Had fever of 102.3. C.diff was positive. CT showed acute pancolitis. Patient states he started having abdominal pain since admission 2 days ago. Progressively worsening pressure-like pain in lower abdomen. Cant eat or drink because worsens pain. Getting renal diet trays, but not eating. States he feels a little bloated and gassy. States he cant pass gas. Patient states diarrhea has improved. Only had 3 BMs today. Past Med Surg Social Fam HX - Past Medical History Medical history: arthritis, CHF, coronary artery disease, dementia, diabetes, hyperlipidemia, hypertension, myocardial infarction, peripheral artery disease, renal disease, other Additional medical history: gout Psychiatric history: bipolar, depression, PTSD - Past Surgical History Surgical History: angioplasty/stent Additional surgical history: penile implant - Social History Smoking Status: Former smoker Smokeless Tobacco Status: No Alcohol use: none Drug use: none - Family History Father Living Status: Hx Family Cardiac Disorders: Yes Medications and Allergies Insulin Glargine,Hum.rec.anlog [Lantus Solostar] 35 unit SQ HS 01/15/16 [H istory] Albuterol Sulfate [Proair Hfa] 2 puff IH Q4H PRN 09/10/18 [History] Allopurinol [Zyloprim] 300 mg PO DAILY 09/10/18 [History] Budesonide/Formoterol 80/4.5 [Symbicort 80/4.5] 2 puff IH BIDR 09/10/18 [History] Calcitriol [Rocaltrol] 0.25 mcg PO DAILY 09/10/18 [History] Calcium Acetate [Phos-LO] 667 mg PO TIDWM 09/10/18 [History] Ferrous Gluconate 324 mg PO BID 09/10/18 [History] Gabapentin [Neurontin] 300 mg PO BID 09/10/18 [History] Hydralazine HCl 50 mg PO TID 09/10/18 [History] Insulin ASPART [Novolog Flexpen] 18 unit SQ TIDWM 09/10/18 [History] Ipratropium [place] 1 spr NS BID PRN 09/10/18 [History] Methocarbamol [Robaxin] 500 mg PO Q8HR PRN 09/10/18 [History] Pantoprazole Sodium [Protonix] 40 mg PO DAILY 09/10/18 [History] Pravastatin Sodium [Pravachol] 40 mg PO HS 09/10/18 [History] Ranolazine [Ranexa] 500 mg PO BID 09/10/18 [History] Tiotropium [Spiriva] 1 puff IH QAM 09/10/18 [History] amLODIPine [Norvasc] 5 mg PO DAILY 09/10/18 [History] traZODone [TraZODone] 50 mg PO HS PRN 09/10/18 [History] Cyanocobalamin (B-12) [Vitamin B12] 1,000 mcg PO DAILY 09/29/18 [History] Ergocalciferol (VITAMIN D2) [Vitamin D2] 50,000 unit PO QWEEK 09/29/18 [History] Ketotifen Fumarate [Zaditor] 1 drop BOTH EYES BID 09/29/18 [History] Furosemide [Lasix] 40 mg PO BID 30 Days #60 tablet 10/06/18 [Rx] Isosorbide MONOnitrate (24 HR) [Imdur] 60 mg PO DAILY #30 tab.er.24h 10/06/18 [Rx] Carvedilol [Coreg] 25 mg PO BID 10/11/18 [History] Enoxaparin [Lovenox] 100 mg SQ DAILY 10/11/18 [History] metroNIDAZOLE [Metronidazole] 500 mg PO TID 10/11/18 [History] Allergy/AdvReac Type Severity Reaction Status Date / Time niacin Allergy Unknown unknown Verified 09/10/18 22:25 atorvastatin [From Lipitor] AdvReac Unknown stomach Verified 09/10/18 22:25 pain simvastatin [From Zocor] AdvReac Unknown stomach Verified 09/10/18 22:25 pain Review of Systems All systems PM: The remainder of the systems were reviewed and are negative - Constitutional anorexia, no chills - EENT Nose, mouth and throat: no dry mouth, no dysphagia - Cardiovascular no chest pain, no claudication - Respiratory no cough, no chest congestion - Gastrointestinal abdominal pain, bloating - Genitourinary no dysuria, no flank pain - Musculoskeletal no abnormal gait, no arthralgias - Integumentary no dry skin, no rash - Neurological no abnormal movements, no dizziness, no frequent falls - Psychiatric no confusion, no hallucinations - Endocrine no cold intolerance, no flushing - Hematologic/Lymphatic no easy bleeding, no lymphadenopathy - Allergic/Immunologic no itchy eyes, no wheezing General Surgery Exam Initial Vital Signs Temp Pulse Resp BP Pulse Ox 102.3 F H 90 18 169/53 98 10/09/18 18:45 10/09/18 18:45 10/09/18 18:45 10/09/18 18:45 10/09/18 18:45 - Additional Findings VITAL SIGNS: Reviewed. See [facility] GENERAL: In no apparent distress. HEENT: Normocephalic, atraumatic, pupils are equal and reactive, extraocular motions intact, oral mucosa pink and dry. CHEST/RESPIRATORY: The thorax is free from signs of trauma. Lung sounds: clear to auscultation. Normal respiratory effort CARDIAC: Regular rate and rhythm. Normal S1 and S2, without murmur, gallops, or rubs. VASCULAR: No Edema. ABDOMEN: Soft. Obese. Nondistended. Tender to palpation at lower abdomen. Quiet bowel sounds. MUSCULOSKELETAL: Good range of motion of all major joints. Extremities without clubbing, cyanosis or edema. NEUROLOGIC EXAM: Alert and oriented x3. Speech normal. Follows commands. PSYCHIATRIC: Mood normal. SKIN: No rash or lesions. Exam Initial Vital Signs Temp Pulse Resp BP Pulse Ox 102.3 F H 90 18 169/53 98 10/09/18 18:45 10/09/18 18:45 10/09/18 18:45 10/09/18 18:45 10/09/18 18:45 Results - Labs 10/11/18 04:23 10/11/18 04:23 Abnormal lab results WBC 11.6 K/mcL (4.3-11.1) H D 10/11/18 04:23 RBC 3.08 M/mcL (4.19-5.50) L 10/11/18 04:23 Hgb 9.5 g/dL (12.9-16.9) L 10/11/18 04:23 Hct 28.3 % (37.5-50.1) L 10/11/18 04:23 RDW 14.8 % (11.5-14.5) H 10/11/18 04:23 Plt Count 111 K/mcL (140-400) L 10/11/18 04:23 Band Neutrophils % 21.0 % (0-4) H 10/11/18 04:23 Neutrophils # 10.2 K/mcL (1.6-8.9) H 10/11/18 04:23 Lymphocytes # 0.5 K/mcL (0.6-4.6) L 10/11/18 04:23 Toxic Granulation Present (Not Present) A 10/11/18 04:23 Platelet Estimate Slight Decrease (Normal) L 10/11/18 04:23 Large Platelets Present (Not Present) A 10/11/18 04:23 PT 17.1 Seconds (9.4-12.1) H 10/11/18 12:07 Potassium 3.2 mEq/L (3.5-5.1) L 10/11/18 04:23 Carbon Dioxide 19 mEq/L (23-29) L 10/11/18 04:23 BUN 57 mg/dL (8-23) H 10/11/18 04:23 Creatinine 3.37 mg/dL (0.70-1.30) H 10/11/18 04:23 Est GFR ( Amer) 22 (> 60) L 10/11/18 04:23 Est GFR (Non-Af Amer) 18 (> 60) L 10/11/18 04:23 Glucose 171 mg/dL (70-105) H 10/11/18 04:23 POC Glucose 140 mg/dL (70-99) H 10/11/18 15:29 Calculated Osmolality 304 (280-300) H 10/11/18 04:23 Calcium 7.8 mg/dL (8.6-10.3) L 10/11/18 04:23 Iron 13 mcg/dL (65-175) L 10/11/18 04:23 % Saturation 7 % (20-55) L 10/11/18 04:23 Transferrin 140 mg/dL (203-362) L 10/11/18 04:23 Troponin I 0.07 ng/mL (< 0.04) H* 10/10/18 08:51 Stl C. diff Tox B Gene Positive (Negative) A 10/10/18 01:16 Diabetes panel 10/11/18 Range/Units 04:23 Sodium 137 (136-145) mEq/L Potassium 3.2 L (3.5-5.1) mEq/L Chloride 105 (98-107) mEq/L Carbon Dioxide 19 L (23-29) mEq/L BUN 57 H (8-23) mg/dL Creatinine 3.37 H (0.70-1.30) mg/dL Glucose 171 H (70-105) mg/dL Calcium 7.8 L (8.6-10.3) mg/dL Calcium panel 10/11/18 Range/Units 04:23 Calcium 7.8 L (8.6-10.3) mg/dL Pituitary panel 10/11/18 Range/Units 04:23 Sodium 137 (136-145) mEq/L Potassium 3.2 L (3.5-5.1) mEq/L Chloride 105 (98-107) mEq/L Carbon Dioxide 19 L (23-29) mEq/L BUN 57 H (8-23) mg/dL Creatinine 3.37 H (0.70-1.30) mg/dL Glucose 171 H (70-105) mg/dL Calcium 7.8 L (8.6-10.3) mg/dL Adrenal panel 10/11/18 Range/Units 04:23 Sodium 137 (136-145) mEq/L Potassium 3.2 L (3.5-5.1) mEq/L Chloride 105 (98-107) mEq/L Carbon Dioxide 19 L (23-29) mEq/L BUN 57 H (8-23) mg/dL Creatinine 3.37 H (0.70-1.30) mg/dL Glucose 171 H (70-105) mg/dL Calcium 7.8 L (8.6-10.3) mg/dL All other labs normal. - Imaging CT scan - abdomen: report reviewed, image reviewed CT scan - pelvis: report reviewed, image reviewed Consult Discharge Plan - Plan Referrals: NONE,PCP [Primary Care Provider] - <Kwaku Pike - Last Filed: 10/11/18 20:00> Date of Encounter: 10/11/18 Review of Systems All systems PM: The remainder of the systems were reviewed and are negative General Surgery Exam Initial Vital Signs Temp Pulse Resp BP Pulse Ox 102.3 F H 90 18 169/53 98 10/09/18 18:45 10/09/18 18:45 10/09/18 18:45 10/09/18 18:45 10/09/18 18:45 Exam Initial Vital Signs Temp Pulse Resp BP Pulse Ox 102.3 F H 90 18 169/53 98 10/09/18 18:45 10/09/18 18:45 10/09/18 18:45 10/09/18 18:45 10/09/18 18:45 Results - Labs 10/11/18 04:23 10/11/18 04:23 Abnormal lab results WBC 11.6 K/mcL (4.3-11.1) H D 10/11/18 04:23 RBC 3.08 M/mcL (4.19-5.50) L 10/11/18 04:23 Hgb 9.5 g/dL (12.9-16.9) L 10/11/18 04:23 Hct 28.3 % (37.5-50.1) L 10/11/18 04:23 RDW 14.8 % (11.5-14.5) H 10/11/18 04:23 Plt Count 111 K/mcL (140-400) L 10/11/18 04:23 Band Neutrophils % 21.0 % (0-4) H 10/11/18 04:23 Neutrophils # 10.2 K/mcL (1.6-8.9) H 10/11/18 04:23 Lymphocytes # 0.5 K/mcL (0.6-4.6) L 10/11/18 04:23 Toxic Granulation Present (Not Present) A 10/11/18 04:23 Platelet Estimate Slight Decrease (Normal) L 10/11/18 04:23 Large Platelets Present (Not Present) A 10/11/18 04:23 PT 17.1 Seconds (9.4-12.1) H 10/11/18 12:07 Potassium 3.2 mEq/L (3.5-5.1) L 10/11/18 04:23 Carbon Dioxide 19 mEq/L (23-29) L 10/11/18 04:23 BUN 57 mg/dL (8-23) H 10/11/18 04:23 Creatinine 3.37 mg/dL (0.70-1.30) H 10/11/18 04:23 Est GFR ( Amer) 22 (> 60) L 10/11/18 04:23 Est GFR (Non-Af Amer) 18 (> 60) L 10/11/18 04:23 Glucose 171 mg/dL (70-105) H 10/11/18 04:23 POC Glucose 140 mg/dL (70-99) H 10/11/18 15:29 Calculated Osmolality 304 (280-300) H 10/11/18 04:23 Calcium 7.8 mg/dL (8.6-10.3) L 10/11/18 04:23 Iron 13 mcg/dL (65-175) L 10/11/18 04:23 % Saturation 7 % (20-55) L 10/11/18 04:23 Transferrin 140 mg/dL (203-362) L 10/11/18 04:23 Troponin I 0.07 ng/mL (< 0.04) H* 10/10/18 08:51 Stl C. diff Tox B Gene Positive (Negative) A 10/10/18 01:16 Diabetes panel 10/11/18 Range/Units 04:23 Sodium 137 (136-145) mEq/L Potassium 3.2 L (3.5-5.1) mEq/L Chloride 105 (98-107) mEq/L Carbon Dioxide 19 L (23-29) mEq/L BUN 57 H (8-23) mg/dL Creatinine 3.37 H (0.70-1.30) mg/dL Glucose 171 H (70-105) mg/dL Calcium 7.8 L (8.6-10.3) mg/dL Calcium panel 10/11/18 Range/Units 04:23 Calcium 7.8 L (8.6-10.3) mg/dL Pituitary panel 10/11/18 Range/Units 04:23 Sodium 137 (136-145) mEq/L Potassium 3.2 L (3.5-5.1) mEq/L Chloride 105 (98-107) mEq/L Carbon Dioxide 19 L (23-29) mEq/L BUN 57 H (8-23) mg/dL Creatinine 3.37 H (0.70-1.30) mg/dL Glucose 171 H (70-105) mg/dL Calcium 7.8 L (8.6-10.3) mg/dL Adrenal panel 10/11/18 Range/Units 04:23 Sodium 137 (136-145) mEq/L Potassium 3.2 L (3.5-5.1) mEq/L Chloride 105 (98-107) mEq/L Carbon Dioxide 19 L (23-29) mEq/L BUN 57 H (8-23) mg/dL Creatinine 3.37 H (0.70-1.30) mg/dL Glucose 171 H (70-105) mg/dL Calcium 7.8 L (8.6-10.3) mg/dL All other labs normal. - Attending Attestation I examined this patient and my medical decision-making was reviewed with the Resident Physician. I agree with the documented findings, disposition and treatment plan as described except to the extent set forth below. I reviewed the above assessment and evaluation and agree with the above plan. Patient has been having some symptoms of abdominal pain particularly in the lower abdominal region. Currently treated for C. difficile colitis with a CT scan performed 2 days ago demonstrating pancolitis. Currently on oral vancomycin 250 mg 4 times a day. Tenderness to palpation in the upper and lower quadrants with no palpable mass. CT scan shows actually worsening or increased thickness of the colon consistent with worsening pancolitis. No free air identified. There is some mild colonic dilation as well. Explained to the patient that if surgery is needed and he will have to undergo a total colectomy with ileostomy that may be permanent. My hope is to prevent that from happening and we will increase the dosage of his oral vancomycin and IV Flagyl as well. Will follow closely.
[2018-10-11] MEDS: MetroNIDAZOLE 500 MG/100 ML 500 MG/100 ML BAG IVPB SCH (18:38)
[2018-10-11] MEDS: cefTRIAXone 2,000 MG in Water for inj. (sterile) 20 ML 20 ML IVP SCH (20:29)
[2018-10-11] MEDS: Acetaminophen 325 MG TABLET PO PRN (20:41)
[2018-10-11] MEDS: *HR* Heparin 5,000 UNIT/ML VIAL IVP PRN (22:25)
[2018-10-12] MEDS: MetroNIDAZOLE 500 MG/100 ML 500 MG/100 ML BAG IVPB SCH ×3 (02:06→17:36)
[2018-10-12] MEDS: Heparin 25,000 UNIT/250 ML D5W 25,000 UNIT/250 ML IV.SOLN IVC SCH ×2 (04:09→23:36)
[2018-10-12] MEDS: 0.9 % Sodium Chloride 1,000 ML IVC SCH (06:32)
[2018-10-12 06:54] LABS: Eosinophils # 0.2 K/mcL (0.0-0.6); Hematocrit 29.3 % (37.5-50.1); Hemoglobin 9.8 g/dL (12.9-16.9); Mean Corpuscular HGB Conc 33.4 g/dL (31.6-35.5); Mean Corpuscular Hemoglobin 30.8 pg (28.0-33.3); Mean Corpuscular Volume 92.1 fL (83.0-100.0); Mean Platelet Volume 11.6 fL (9.4-12.4); Platelet Count 122 K/mcL (140-400); Red Blood Count 3.18 M/mcL (4.19-5.50)
[2018-10-12 07:02] LABS: Heparin anti-factor XA UFH 0.15 IU/mL (0.30-0.70)
[2018-10-12 07:03] LABS: INR 1.4; Prothrombin Time 16.2 Seconds (9.4-12.1)
[2018-10-12 07:10] LABS: Calcium 8.2 mg/dL (8.6-10.3); Magnesium 1.8 mg/dL (1.6-2.6); Phosphorous 2.9 mg/dL (2.7-4.5); Potassium 3.3 mEq/L (3.5-5.1)
[2018-10-12] MEDS: *HR* Heparin 5,000 UNIT/ML VIAL IVP PRN ×2 (07:18→15:39)
[2018-10-12 07:30] LABS: Lymphocytes # 0.1 K/mcL (0.6-4.6); Monocytes # 0.4 K/mcL (0.0-1.3); Neutrophils # 11.5 K/mcL (1.6-8.9); Platelet Estimate Slight Decrease (Normal)
[2018-10-12 08:41] LABS: Estimated Average Glucose 131 mg/dl; Hemoglobin A1C 6.2 %
[2018-10-12] MEDS: Vancomycin Oral Soln 125 MG/2.5 ML UDC PO SCH ×4 (08:42→22:06)
[2018-10-12] MEDS: Insulin LISPRO 300 UNITS/3 ML VIAL SQ SCH ×4 (08:43→21:22)
--- NOTE | 2018-10-12 11:52 | Nephrology Progress Note ---
Addendum entered and electronically signed by Ollie Montes DO 10/12/18 15:51: I have personally performed a face to face evaluation on this patient. I have reviewed and agree with the care plan. 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 To avoid inducing more ascites, I concur with stopping the 0.9% saline at this point. He has multiple issues as described below including hypokalemia with diarrhea and anemia and HTN. He remains a high risk pt and will require a high degree of E/M and MDM. 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 GFR is 19, Scr is 3.22. Avoid nephrotoxins and renal dose. Strict I/O Cdiff: per primary/surgery. Afebrile since 10/10/18. Anemia, likely multifactorial. Goal Hgb is 10-11. Hgb is 9.8 today, stable. Qualifiers: Acute renal failure type: unspecified Qualified Code(s): N17.9 - Acute kidney failure, unspecified (2) Anemia Current Visit: No Status: Chronic See above. Qualifiers: Anemia type: due to chronic kidney disease Chronic kidney disease stage: stage 4 (severe) Qualified Code(s): N18.4 - Chronic kidney disease, stage 4 (severe); D63.1 - Anemia in chronic kidney disease (3) HTN (hypertension) Current Visit: No Status: Chronic 123/76 at bedside, stable. Qualifiers: Hypertension type: essential hypertension Qualified Code(s): I10 - Essential (primary) hypertension (4) Anemia Current Visit: No Status: Chronic See above. Qualifiers: Anemia type: unspecified type Qualified Code(s): D64.9 - Anemia, unspecified (5) C. difficile diarrhea Current Visit: Yes Status: Acute See above. (6) DVT (deep venous thrombosis) Current Visit: Yes Status: Acute Currently on Heparin gtt. Qualifiers: DVT location: lower extremity Affected thrombotic vein of extremity: unspecified vein of extremity Chronicity: acute Laterality: right Qualified Code(s): I82.401 - Acute embolism and thrombosis of unspecified deep veins of right lower extremity (7) CKD (chronic kidney disease), stage IV Current Visit: Yes Status: Chronic (8) Metabolic acidosis Current Visit: Yes Status: Acute (9) Hyponatremia Current Visit: Yes Status: Acute (10) Hypokalemia Current Visit: Yes Status: Acute K is 3.3, stable. Recheck in am 10/13/18, will possibly replace in AM. Subjective Principal diagnosis: BUCKY on CKD Interval history: Pt seen and examined, is feeling a little better today. States abdominal pain has decreased. Denies nausea, vomiting. Admits to diarrhea. Denies chest pain or shortness of breath. No acute events overnight. Objective - Vital Signs Vital signs: Vital Signs Temp Pulse Resp BP Pulse Ox 10/12/18 10:26 97.4 F L 112 14 123/76 97 10/12/18 05:24 98.2 F 72 14 128/66 95 10/11/18 21:21 98.8 F 107 16 136/63 96 10/11/18 15:37 98.2 F 110 16 144/69 95 Intake and Output 10/11/18 10/12/18 10/12/18 23:59 07:59 15:59 Intake Total 1261 / 1261 1246 / 1246 360 / 360 Output Total 0 / 0 200 / 200 Balance 1261 / 1261 1246 / 1246 160 / 160 Intake: IV Fluids 1261 / 1261 1246 / 1246 0.9 % Sodium Chloride 1,000 ML 1000 / 1000 1000 / 1000 @ 75 mls/hr IVC .[id number] [facility] Rx #:[id number] Heparin 25,000 UNIT/250 ML D5W 141 / 141 146 / 146 25,000 unit In 250 ml @ 14 UNIT /KG/HR 15.4 mls/hr IVC .[id number] [facility] Rx#:[id number] Rocephin 2,000 MG In Water for 20 / 20 inj. (sterile) 20 ML @ 600 mls/ hr IVP Q24H [facility] Rx#:[id number] Flagyl Premix 500 MG/100 ML 500 100 / 100 100 / 100 mg In 100 ml @ 100 mls/hr IVPB Q8H [facility] Rx#:[id number] Oral 0 / 0 0 / 0 360 / 360 Output: Urine 0 / 0 200 / 200 Other: Meal Breakfast Percent of Meal Consumed 10% Stool Size Large Stool Consistency liquid Stool Color Brown # Voids 2 # Bowel Movements 2 1 Blood Glucose* 170 162 - General Appearance General appearance: Present: well-developed, well-nourished EENT: Present: ATNC, hearing intact, vision intact Neck: Present: supple Respiratory: Present: clear Cardiology: Present: edema (Trace bilat lower extremity edema noted.), normal S1, normal S2 Gastrointestinal: Present: normoactive bowel sounds, no tenderness, no guarding Integumentary: Present: no rash, warm and dry Neurologic: Present: alert and oriented x3 Musculoskeletal: Present: no deformities, no erythema Psychiatric: Present: mood/affect appropriate, cooperative - Lab 10/12/18 06:12 10/12/18 06:12 Most recent lab results Calcium 8.2 mg/dL (8.6-10.3) L 10/12/18 06:12 Phosphorus 2.9 mg/dL (2.7-4.5) 10/12/18 06:12 Magnesium 1.8 mg/dL (1.6-2.6) 10/12/18 06:12 Consult Discharge Plan - Plan Referrals: NONE,PCP [Primary Care Provider] -
--- NOTE | 2018-10-12 13:58 | General Surgery Progress Note ---
<Frank Turner Jo Ann - Last Filed: 10/12/18 14:41> Date of Encounter: 10/12/18 Time of Encounter: 13:15 - Assessment and Plan (1) C. difficile colitis Current Visit: Yes Status: Acute -Diarrhea improving -Abdominal pain and distension improving today -CT abd 10/11/18 redemonstrated pancolitis compatible with C diff -Continue clear liquid diet today and will advance tomorrow as tolerated -Continue abx for C diff Subjective Narrative: No acute events overnight. Continues to feel abdominal pressure but distention and pain improving. Diarrhea improving. Tolerating clear liquids well. Denies subjective fever/chills, worsening abdominal pain, N/V, constipation. Objective Vital Signs - Last 8 Hours Temp Pulse Resp BP Pulse Ox 10/12/18 10:26 97.4 F L 112 14 123/76 97 Intake and Output 10/11/18 10/12/18 10/12/18 23:59 07:59 15:59 Intake Total 1261 / 1261 1246 / 1246 360 / 360 Output Total 0 / 0 200 / 200 Balance 1261 / 1261 1246 / 1246 160 / 160 Intake: IV Fluids 1261 / 1261 1246 / 1246 0.9 % Sodium Chloride 1,000 ML 1000 / 1000 1000 / 1000 @ 75 mls/hr IVC .[id number] [facility] Rx #:[id number] Heparin 25,000 UNIT/250 ML D5W 141 / 141 146 / 146 25,000 unit In 250 ml @ 14 UNIT /KG/HR 15.4 mls/hr IVC .[id number] [facility] Rx#:[id number] Rocephin 2,000 MG In Water for 20 / 20 inj. (sterile) 20 ML @ 600 mls/ hr IVP Q24H [facility] Rx#:[id number] Flagyl Premix 500 MG/100 ML 500 100 / 100 100 / 100 mg In 100 ml @ 100 mls/hr IVPB Q8H [facility] Rx#:[id number] Oral 0 / 0 0 / 0 360 / 360 Output: Urine 0 / 0 200 / 200 Other: Meal Breakfast Percent of Meal Consumed 10% Stool Size Large Stool Consistency liquid Stool Color Brown # Voids 2 # Bowel Movements 2 1 Blood Glucose* 170 162 - General physical appearance well developed, well nourished, no distress - Eyes normal ocular movement - ENT dry mucosa - Neck Neck exam: trachea midline - Respiratory normal expansion, normal respiratory effort, clear to auscultation - Cardiovascular Cardiovascular exam: Present: tachycardia, regular rhythm, no murmurs/rubs/gallops. Absent: RRR, bradycardia, irregular rhythm, distant heart sounds, JVD - Abdomen Abdomen: Present: bowel sounds present, soft, distended. Absent: masses, guarding, rebound, rigid Abdominal Tenderness: RLQ, LLQ - Integumentary no rash - Neurologic CN 2-12 grossly intact, normal coordination, normal sensation - Psychiatric oriented to time, oriented to person, oriented to place, speech is normal - Labs 10/12/18 06:12 10/12/18 06:12 Diabetes panel 10/11/18 10/12/18 Range/Units 04:23 06:12 Sodium 138 (136-145) mEq/L Potassium 3.3 L (3.5-5.1) mEq/L Chloride 107 (98-107) mEq/L Carbon Dioxide 18 L (23-29) mEq/L BUN 67 H (8-23) mg/dL Creatinine 3.22 H (0.70-1.30) mg/dL Glucose 168 H (70-105) mg/dL Hemoglobin A1c 6.2 H ( - 5.6) % Calcium 8.2 L (8.6-10.3) mg/dL Calcium panel 10/12/18 Range/Units 06:12 Calcium 8.2 L (8.6-10.3) mg/dL Phosphorus 2.9 (2.7-4.5) mg/dL Pituitary panel 10/12/18 Range/Units 06:12 Sodium 138 (136-145) mEq/L Potassium 3.3 L (3.5-5.1) mEq/L Chloride 107 (98-107) mEq/L Carbon Dioxide 18 L (23-29) mEq/L BUN 67 H (8-23) mg/dL Creatinine 3.22 H (0.70-1.30) mg/dL Glucose 168 H (70-105) mg/dL Calcium 8.2 L (8.6-10.3) mg/dL Adrenal panel 10/12/18 Range/Units 06:12 Sodium 138 (136-145) mEq/L Potassium 3.3 L (3.5-5.1) mEq/L Chloride 107 (98-107) mEq/L Carbon Dioxide 18 L (23-29) mEq/L BUN 67 H (8-23) mg/dL Creatinine 3.22 H (0.70-1.30) mg/dL Glucose 168 H (70-105) mg/dL Calcium 8.2 L (8.6-10.3) mg/dL Consult Discharge Plan - Plan Referrals: NONE,PCP [Primary Care Provider] - <Kwaku Pike - Last Filed: 10/13/18 07:12> Date of Encounter: 10/12/18 Objective Vital Signs - Last 8 Hours Temp Pulse Resp BP Pulse Ox 10/13/18 06:04 135/75 10/13/18 04:03 99.0 F 108 18 123/74 94 10/13/18 03:29 16 95 10/13/18 02:54 98.8 F 114 20 156/70 94 Intake and Output 10/12/18 10/12/18 10/13/18 15:59 23:59 07:59 Intake Total 567 / 567 226.0 / 226.0 136 / 136 Output Total 200 / 200 0 / 0 Balance 367 / 367 226.0 / 226.0 136 / 136 Intake: IV Fluids 207 / 207 226.0 / 226.0 136 / 136 Heparin 25,000 UNIT/250 ML D5W 107 / 107 106.0 / 106.0 136 / 136 25,000 unit In 250 ml @ 14 UNIT /KG/HR 15.4 mls/hr IVC .[id number] [facility] Rx#:[id number] Rocephin 2,000 MG In Water for 20 / 20 inj. (sterile) 20 ML @ 600 mls/ hr IVP Q24H [facility] Rx#:[id number] Flagyl Premix 500 MG/100 ML 500 100 / 100 100 / 100 mg In 100 ml @ 100 mls/hr IVPB Q8H [facility] Rx#:[id number] Oral 360 / 360 0 / 0 0 / 0 Output: Urine 200 / 200 0 / 0 Other: Meal Breakfast Percent of Meal Consumed 10% Stool Size Large Smear Stool Consistency loose Stool Color Brown # Voids 1 1 1 # Bowel Movements 1 1 1 Weight 111.7 kg Blood Glucose* 184 200 Patient Weight 10/13/18 23:59 Weight 111.7 kg - Labs 10/13/18 01:02 10/13/18 01:02 Diabetes panel 10/11/18 10/13/18 10/13/18 Range/Units 04:23 01:02 01:02 Sodium 138 (136-145) mEq/L Potassium 3.1 L (3.5-5.1) mEq/L Chloride 107 (98-107) mEq/L Carbon Dioxide 18 L (23-29) mEq/L BUN 69 H (8-23) mg/dL Creatinine 3.11 H (0.70-1.30) mg/dL Glucose 195 H (70-105) mg/dL Hemoglobin A1c 6.2 H ( - 5.6) % Calcium 7.9 L (8.6-10.3) mg/dL AST 19 (13-39) Units/L ALT 10 (7-52) Units/L Alkaline Phosphatase 77 (34-104) Units/L Albumin 2.6 L (3.5-5.7) g/dL Calcium panel 10/13/18 10/13/18 Range/Units 01:02 01:02 Calcium 7.9 L (8.6-10.3) mg/dL Albumin 2.6 L (3.5-5.7) g/dL Pituitary panel 10/13/18 Range/Units 01:02 Sodium 138 (136-145) mEq/L Potassium 3.1 L (3.5-5.1) mEq/L Chloride 107 (98-107) mEq/L Carbon Dioxide 18 L (23-29) mEq/L BUN 69 H (8-23) mg/dL Creatinine 3.11 H (0.70-1.30) mg/dL Glucose 195 H (70-105) mg/dL Calcium 7.9 L (8.6-10.3) mg/dL Adrenal panel 10/13/18 10/13/18 Range/Units 01:02 01:02 Sodium 138 (136-145) mEq/L Potassium 3.1 L (3.5-5.1) mEq/L Chloride 107 (98-107) mEq/L Carbon Dioxide 18 L (23-29) mEq/L BUN 69 H (8-23) mg/dL Creatinine 3.11 H (0.70-1.30) mg/dL Glucose 195 H (70-105) mg/dL Calcium 7.9 L (8.6-10.3) mg/dL Total Bilirubin 0.5 (0.3-1.0) mg/dL AST 19 (13-39) Units/L ALT 10 (7-52) Units/L Alkaline Phosphatase 77 (34-104) Units/L Albumin 2.6 L (3.5-5.7) g/dL - Attending Attestation I examined this patient and my medical decision-making was reviewed with the Resident Physician. I agree with the documented findings, disposition and treatment plan as described except to the extent set forth below. I reviewed the above assessment and evaluation with the resident. Patient states that he has decreased abdominal pain on examination. Decreased bloating. Will allow clear liquids. We will continue to monitor this CBC/WBC. The assessment on advancing his diet will be made tomorrow upon evaluation. I will likely hold off on further advancement of his diet or may just advance to full liquids depending upon examination.
--- NOTE | 2018-10-12 16:42 | Internal Med Progress Note ---
Hospitalist Progress Note - Encounter Date of Encounter: 10/12/18 Time of Encounter: 16:40 - Subjective Interval History: Patient seen and examined at bedside. Patient states that he feels better today. He reports his abdominal pain is improved. He does report continued diarrhea but feels like this is improving. Denies fever, chills - Exam Vitals: Temp Pulse Resp BP Pulse Ox 98.0 F 92 16 151/70 97 10/12/18 14:05 10/12/18 14:05 10/12/18 14:05 10/12/18 14:05 10/12/18 14:05 Exam: Heart: Regular rate and rhythm, no murmurs, rubs or gallops Lungs: Clear to auscultation bilaterally, no rales, rhonchi, wheezes Abdomen: Soft, mildly tender. Distended. No fluid wave noted. No peritoneal signs. Hypoactive bowel sounds. Extremities: Right lower extremity: No erythema or warmth noted - Assessment and Plan (1) Sepsis Current Visit: Yes Status: Acute Assessment and Plan: Secondary to C. difficile colitis. Patient continues to have bandemia and leukocytosis with intermittent tachycardia. He very fluid replacement, blood cultures no growth to date. Lactic acid was negative. Continue oral vancomycin, IV Flagyl for C. difficile colitis. (2) C. difficile colitis Current Visit: Yes Status: Acute Assessment and Plan: C. difficile toxin positive. Has continued diarrhea but clinically feels better today. Surgery was consulted yesterday and are following along but no urgent surgical intervention required at this time. Continue by mouth vancomycin, IV Flagyl (3) Chronic kidney disease Current Visit: Yes Status: Acute Assessment and Plan: Creatinine stable today. Good urine output. Discontinue IV fluids due to concern for worsening ascites. Her kidney function daily, if patient needs more IV fluids will likely use albumin. Appreciate nephrology recommendations. (4) Diabetes mellitus Current Visit: No Status: Chronic Assessment and Plan: Blood sugar under good control at this time. Continue sliding scale insulin and adjust as necessary. (5) Cirrhosis Current Visit: No Status: Chronic Assessment and Plan: Patient has known cirrhosis with evidence of ascites, significant IV fluid as well as an abdominal infection likely contribute. I did add Rocephin yesterday given the patient's increased abdominal pain just to cover for possible sponta neous bacterial peritonitis however I feel like this is less likely. Patient's abdominal pain is better today, if patient continues to improve we will likely discontinue Rocephin the next 1-2 days. I did evaluate the patient's abdomen with the ultrasound today and a small amount of ascites was noted but no pocket large enough for paracentesis for diagnostic. If patient needs volume replacement we will use albumin to prevent further worsening of his ascites. (6) DVT (deep venous thrombosis) Current Visit: Yes Status: Acute Assessment and Plan: Patient was recently diagnosed on October 08 with DVT. Had been on Lovenox bridging to warfarin at home. INR subtherapeutic on presentation, was placed on heparin drip. We will continue for now, hold warfarin given the patient's colitis and risk for bleeding. Asymptomatic (7) Anemia Current Visit: No Status: Chronic Assessment and Plan: Hemoglobin improved today to 9.8. No evidence of active bleeding. Chronic for patient. Hemoccult stool negative. Closely monitor the patient being on heparin. (8) Thrombocytopenia Current Visit: No Status: Chronic Assessment and Plan: Due to sepsis. Chronic for patient. Improved 122 today. No signs of active bleeding. - Time Spent with Patient Total time spent is greater than 50% in coordination of care (as documented) at patient's floor/unit and/or counseling patient: Internal Medicine: Result - Labs CBC & Chem 7: 10/12/18 06:12 10/12/18 06:12 Labs: Short CBC 10/12/18 Range/Units 06:12 WBC 12.2 H (4.3-11.1) K/mcL Hgb 9.8 L (12.9-16.9) g/dL Hct 29.3 L (37.5-50.1) % Plt Count 122 L (140-400) K/mcL Neutrophils # 11.5 H (1.6-8.9) K/mcL BMP 10/12/18 06:12 Sodium 138 Potassium 3.3 L Chloride 107 Carbon Dioxide 18 L BUN 67 H Creatinine 3.22 H Glucose 168 H Calcium 8.2 L - ABG Interpretation ABG results: PT/INR, D-dimer PT 16.2 Seconds (9.4-12.1) H 10/12/18 06:12 - Impressions Impressions Abdomen/Pelvis CT 10/11/18 10:57 IMPRESSION: 1. Redemonstration of pancolitis compatible with given history of C diff colitis. Possible worsening wall thickening of the transverse colon. 2. Increasing abdominal ascites. 3. Cirrhosis and splenomegaly similar previous exam. 4. Severe atherosclerotic disease. D/ / Juice Tobin MD / Juice Tobin MD Interpreting Provider: Juice Tobin MD Consult Discharge Plan - Plan Referrals: NONE,PCP [Primary Care Provider] - ___ (1) Sepsis Qualifiers: Sepsis type: sepsis due to unspecified organism Qualified Code(s): A41.9 - Sepsis, unspecified organism (3) Chronic kidney disease Qualifiers: Chronic kidney disease stage: stage 4 (severe) Qualified Code(s): N18.4 - Chronic kidney disease, stage 4 (severe) (4) Diabetes mellitus Qualifiers: Diabetes mellitus type: type 2 Diabetes mellitus assisted insulin use: with assisted use Diabetes mellitus complication status: with kidney complications Diabetes mellitus complication detail: with chronic kidney disease Chronic kidney disease stage: stage 4 (severe) Qualified Code(s): E11.22 - Type 2 diabetes mellitus with diabetic chronic kidney disease; N18.4 - Chronic kidney disease, stage 4 (severe); Z79.4 - prison (current) use of insulin (5) Cirrhosis Qualifiers: Hepatic cirrhosis type: unspecified hepatic cirrhosis Ascites presence: with ascites Qualified Code(s): K74.60 - Unspecified cirrhosis of liver; R18.8 - Other ascites (6) DVT (deep venous thrombosis) Qualifiers: DVT location: lower extremity Affected thrombotic vein of extremity: unspecified vein of extremity Chronicity: acute Laterality: right Qualified Code(s): I82.401 - Acute embolism and thrombosis of unspecified deep veins of right lower extremity (7) Anemia Qualifiers: Anemia type: due to chronic kidney disease Chronic kidney disease stage: stage 4 (severe) Qualified Code(s): N18.4 - Chronic kidney disease, stage 4 (severe); D63.1 - Anemia in chronic kidney disease
--- NOTE | 2018-10-12 21:14 | Electrocardiograph Report ---
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
[2018-10-12] MEDS: cefTRIAXone 2,000 MG in Water for inj. (sterile) 20 ML 20 ML IVP SCH (22:06)
[2018-10-13 02:03] LABS: Hemoglobin 9.4 g/dL (12.9-16.9); Mean Corpuscular HGB Conc 33.6 g/dL (31.6-35.5); Mean Corpuscular Hemoglobin 30.4 pg (28.0-33.3); Mean Corpuscular Volume 90.6 fL (83.0-100.0); Mean Platelet Volume 11.2 fL (9.4-12.4); Nucleated Red Blood Cells 0.2 /100 WBC (0); Platelet Count 149 K/mcL (140-400); Red Blood Count 3.09 M/mcL (4.19-5.50); Red Cell Distribution Width 14.9 % (11.5-14.5)
[2018-10-13 02:14] LABS: INR 1.5; Prothrombin Time 17.3 Seconds (9.4-12.1)
[2018-10-13 02:23] LABS: Calcium 7.9 mg/dL (8.6-10.3); Potassium 3.1 mEq/L (3.5-5.1)
[2018-10-13 02:25] LABS: Albumin 2.6 g/dL (3.5-5.7); Bilirubin,Direct 0.2 mg/dL (0.0-0.2); Bilirubin,Indirect 0.3 mg/dL (0.0-1.2); Bilirubin,Total 0.5 mg/dL (0.3-1.0); Globulin 2.7 g/dL (2.4-3.5); Magnesium 1.8 mg/dL (1.6-2.6); Total Protein 5.3 g/dL (6.4-8.9)
[2018-10-13 02:39] LABS: Lymphocytes # 0.8 K/mcL (0.6-4.6); Monocytes # 2.1 K/mcL (0.0-1.3); Neutrophils # 10.4 K/mcL (1.6-8.9); Platelet Estimate Normal (Normal)
[2018-10-13] MEDS: MetroNIDAZOLE 500 MG/100 ML 500 MG/100 ML BAG IVPB SCH ×3 (02:39→18:03)
[2018-10-13] MEDS ORDERED: Ipratropium/Albuterol Neb 3 ML IH ONE (02:59)
[2018-10-13] MEDS: Acetaminophen 325 MG TABLET PO PRN ×2 (03:17→10:18)
--- NOTE | 2018-10-13 06:01 | Event Note ---
Date of Encounter: 10/13/18 Time of Encounter: 05:00 Notified by nurse of patient continuing to complain of chest tightness after breathing treatment. EKG ordered shows afib RVR with rate in 110's. Will order one time Lopressor IV. No previous history of afib per patient. Will order one time dose IV lopressor. Already on heparin drip for DVT. Will order troponin and cardiology consult.
[2018-10-13] MEDS ORDERED: *HR* Metoprolol 5 MG/5 ML VIAL IVP ONE (06:05)
[2018-10-13] MEDS: Vancomycin Oral Soln 125 MG/2.5 ML UDC PO SCH ×4 (07:58→20:29)
--- NOTE | 2018-10-13 08:30 | Cardiology Consult Note ---
Date of Encounter: 10/13/18 Time of Encounter: 09:30 Assessment and Plan (1) Atrial fibrillation with RVR Current Visit: Yes Status: Acute Likely caused by sepsis 2/2 Cdiff colitis, however an ischemic event could not be ruled out EKG without ischemic changes Initial trop on 10/13 negative Pt no longer experiencing "chest tightness", states it resolved after a large bowel movement this morning Had an echo on 09/11/18 which revealed LVEF 60% with mild LV hypertrophy, and moderate LV diastolic dysfunction. Severe bi-atrial enlargement. Mod pulm HTN. Repeat echo this AM revealed LVEF 60% with dilate RV. Systolic function grossly normal. Currently rate controlled in the 90s. Recommend continued treatment of Cdiff colitis. Consider restarting home Coreg for continued rate control. Already on anticoagulation with Acute DVT of right leg. Does have a hx of CAD with previous stent placement. Recommend continue home statin, ranexa, imdur, Coreg, and antihypertensives when ready to discharge. No further inpatient cardiac workup necessary at this time. Please follow up as outpatient. Cardiology will sign off at this time. (2) Sepsis Current Visit: Yes Status: Acute 2/2 Cdiff colitis Was initially febrile with temp of 102.3 on admission, now afebrile HR was borderline tachycardic on admission, however was in afib with RVR overnight Non-tachypnic Initially no leukocytosis, however bandemia was present on 10/11/18 which has subsequently improved Continuing po Vanc and IV Flagyl Management per primary Qualifiers: Sepsis type: sepsis due to unspecified organism Qualified Code(s): A41.9 - Sepsis, unspecified organism (3) C. difficile colitis Current Visit: Yes Status: Acute C diff toxin positive Was recently admitted last month and received abx at that time Continues to have diarrhea Currently on po Vanc and IV flagyl Management per primary (4) DVT (deep venous thrombosis) Current Visit: Yes Status: Acute Currently on Warfarin with Heparin bridge. Continue Qualifiers: DVT location: lower extremity Affected thrombotic vein of extremity: unspecified vein of extremity Chronicity: acute Laterality: right Qualified Code(s): I82.401 - Acute embolism and thrombosis of unspecified deep veins of right lower extremity (5) HTN (hypertension) Current Visit: Yes Status: Chronic Controlled at 135/75 and 118/64 this morning Home regimen including Coreg, Amlodipine, hydralazine, and lasix currently being held at this time with Sepsis with Cdiff colitis. May consider restarting home Coreg with Afib with RVR overnight. Qualifiers: Hypertension type: essential hypertension Qualified Code(s): I10 - Essential (primary) hypertension (6) Diabetes mellitus Current Visit: Yes Status: Chronic Hgb A1c 6.2 during this admission Management per primary Qualifiers: Diabetes mellitus type: type 2 Diabetes mellitus intermediate project manager insulin use: with intermediate project manager use Diabetes mellitus complication status: with kidney complications Diabetes mellitus complication detail: with chronic kidney disease Chronic kidney disease stage: stage 4 (severe) Qualified Code(s): E11.22 - Type 2 diabetes mellitus with diabetic chronic kidney disease; N18.4 - Chronic kidney disease, stage 4 (severe); Z79.4 - terminal make up operator (current) use of insulin (7) Acute kidney injury superimposed on chronic kidney disease Current Visit: Yes Status: Acute Management per primary and nephrology. (8) Cirrhosis Current Visit: Yes Status: Chronic Known cirrhosis. Management per primary Qualifiers: Hepatic cirrhosis type: unspecified hepatic cirrhosis Ascites presence: with ascites Qualified Code(s): K74.60 - Unspecified cirrhosis of liver; R18.8 - Other ascites Discussion w patient/family: The assessment and plan as outlined above was discussed with the patient and/or family members who expressed understanding and agreement. All questions were answered. Thank you for involving us in the care of your patient. Please call with any questions. History of Present Illness Consult date: 10/13/18 Requesting physician: Fernando Olguin Consult reason: New onset Afib with RVR. No previous history of Afib Chief complaint: Diarrhea History of present illness: Mr. Sandoval is a 73 year old male with PMH of arthritis, CHF, CAD with 1 previous stent, DM2, HLD, HTN, PAD, and CKD. He was admitted on 10/10/18 for nausea and loose stools of 3 days duration. Cdiff toxin positive. Subsequently started on po Flagyl and Vancomycin. Prior to admission he was diagnoses with acute DVT of the right leg at the [facility]. He was started on Coumadin with Lovenox bridge prior to admission and was found to be subtherapeutic at time of admission. Was started on Heparin drip. General surgery was consulted for increasing abdominal distention and concerns for toxic megacolon, however CT abdomen/pelvis redemonstrated pancolitis compatible with C diff colitis and was determined to have no surgical indication at this time. Overnight on 10/12 pt became increasingly tachycardic and 12 lead EKG revealed Afib with RVR. Pt has no previous history of afib. Denies any palpitations, dizziness, or lightheadedness. He did complain of some "mild chest tightness" overnight, but this had resolved prior to the encounter with this provider. Denies any chest pain or shortness of breath. States the aforementioned chest tightness improved after a large loose bowel movement. Pt states he did have an echocardiogram approximately 1 month ago. Past Med Surg Social Fam HX - Past Medical History Medical history: arthritis, CHF, coronary artery disease, dementia, diabetes, hyperlipidemia, hypertension, myocardial infarction, peripheral artery disease, renal disease, other Additional medical history: gout Psychiatric history: bipolar, depression, PTSD - Past Surgical History Surgical History: angioplasty/stent Additional surgical history: penile implant - Social History Smoking Status: Former smoker Smokeless Tobacco Status: No Alcohol use: none Drug use: none - Family History Father Living Status: Hx Family Cardiac Disorders: Yes Medications and Allergies Insulin Glargine,Hum.rec.anlog [Lantus Solostar] 35 unit SQ HS 01/15/16 [History] Albuterol Sulfate [Proair Hfa] 2 puff IH Q4H PRN 09/10/18 [History] Allopurinol [Zyloprim] 300 mg PO DAILY 09/10/18 [History] Budesonide/Formoterol 80/4.5 [Symbicort 80/4.5] 2 puff IH BIDR 09/10/18 [History] Calcitriol [Rocaltrol] 0.25 mcg PO DAILY 09/10/18 [History] Calcium Acetate [Phos-LO] 667 mg PO TIDWM 09/10/18 [History] Ferrous Gluconate 324 mg PO BID 09/10/18 [History] Gabapentin [Neurontin] 300 mg PO BID 09/10/18 [History] Hydralazine HCl 50 mg PO TID 09/10/18 [History] Insulin ASPART [Novolog Flexpen] 18 unit SQ TIDWM 09/10/18 [History] Ipratropium [place] 1 spr NS BID PRN 09/10/18 [History] Methocarbamol [Robaxin] 500 mg PO Q8HR PRN 09/10/18 [History] Pantoprazole Sodium [Protonix] 40 mg PO DAILY 09/10/18 [History] Pravastatin Sodium [Pravachol] 40 mg PO HS 09/10/18 [History] Ranolazine [Ranexa] 500 mg PO BID 09/10/18 [History] Tiotropium [Spiriva] 1 puff IH QAM 09/10/18 [History] amLODIPine [Norvasc] 5 mg PO DAILY 09/10/18 [History] traZODone [TraZODone] 50 mg PO HS PRN 09/10/18 [History] Cyanocobalamin (B-12) [Vitamin B12] 1,000 mcg PO DAILY 09/29/18 [History] Ergocalciferol (VITAMIN D2) [Vitamin D2] 50,000 unit PO QWEEK 09/29/18 [History] Ketotifen Fumarate [Zaditor] 1 drop BOTH EYES BID 09/29/18 [History] Furosemide [Lasix] 40 mg PO BID 30 Days #60 tablet 10/06/18 [Rx] Isosorbide MONOnitrate (24 HR) [Imdur] 60 mg PO DAILY #30 tab.er.24h 10/06/18 [Rx] Carvedilol [Coreg] 25 mg PO BID 10/11/18 [History] Enoxaparin [Lovenox] 100 mg SQ DAILY 10/11/18 [History] metroNIDAZOLE [Metronidazole] 500 mg PO TID 10/11/18 [History] Allergy/AdvReac Type Severity Reaction Status Date / Time niacin Allergy Unknown unknown Verified 09/10/18 22:25 atorvastatin [From Lipitor] AdvReac Unknown stomach Verified 09/10/18 22:25 pain simvastatin [From Zocor] AdvReac Unknown stomach Verified 09/10/18 22:25 pain All Systems Review: The remainder of the systems were reviewed and are negative - Constitutional Constitutional: weakness, no chills, no fever(s), no headache(s) - EENT Eyes: no blurred vision, no loss of vision, no pain Nose, mouth and throat: no sinus pain, no sore throat - Cardiovascular Cardiovascular: no chest pain at rest, no chest pain with exertion, no dyspnea at rest, no dyspnea on exertion, no irregular heart rhythm, no lightheadedness, no palpitations - Respiratory Respiratory: no cough, no dyspnea, no wheezing - Gastrointestinal Gastrointestinal: abdominal pain, diarrhea, nausea, no constipation, no hematemesis, no hematochezia, no melena - Genitourinary Genitourinary: no dysuria, no hematuria - Musculoskeletal Musculoskeletal: no back pain, no muscle cramps, no muscle weakness - Integumentary Integumentary: no erythema, no rash, no unusual bruising - Neurological Neurological: no dizziness, no numbness, no tingling - Hematological/Lymphatic Hematologic/Lymphatic: no easy bleeding, no easy bruising Physical Examination Vital Signs, Last 4 Hours Temp Pulse Resp BP Pulse Ox 10/13/18 07:27 98.1 F 93 16 118/64 94 10/13/18 06:04 135/75 General: Conversant, No Apparent Distress HEENT: Atraumatic, Normocephaly, Mucus Membranes Moist Neck: No JVD, Normal carotid pulses Cardiac: Normal S1 and S2, No Murmur, Other (irregularly irregular rhythm ) Lungs: Normal Breath Sounds, No Wheeze, Rales, Rhonchi Neuro: Alert and responsive, No focal deficits noted Abdomen: Soft, Non-Tender Skin: No rashes noted on visualized skin Musculoskeletal: No Chest Wall Tenderness Extremities: No Clubbing, No Cyanosis, No Edema, Normal Pulses Results 10/13/18 01:02 10/13/18 01:02 Lab Results 10/13/18 10/13/18 10/13/18 01:02 01:02 01:02 WBC 13.3 H Hgb 9.4 L Hct 28.0 L Plt Count 149 INR 1.5 Sodium 138 Potassium 3.1 L Chloride 107 Carbon Dioxide 18 L BUN 69 H Creatinine 3.11 H Glucose 195 H Calcium 7.9 L Magnesium Total Bilirubin AST ALT Alkaline Phosphatase Troponin I 10/13/18 10/13/18 01:02 06:41 WBC Hgb Hct Plt Count INR Sodium Potassium Chloride Carbon Dioxide BUN Creatinine Glucose Calcium Magnesium 1.8 Total Bilirubin 0.5 AST 19 ALT 10 Alkaline Phosphatase 77 Troponin I 0.03 - Imaging and Cardiology Echo: report reviewed Other Results: CT abdomen/pelvis images and reports reviewed - EKG Interpretation EKG results cardiology: personally reviewed, no diagnostic ischemia, other (Afib with RVR. HR 118) Consult Discharge Plan - Plan Referrals: NONE,PCP [Primary Care Provider] -
[2018-10-13] MEDS: Insulin LISPRO 300 UNITS/3 ML VIAL SQ SCH ×4 (08:40→20:41)
--- NOTE | 2018-10-13 09:58 | General Surgery Progress Note ---
<Frank Turner - Last Filed: 10/13/18 10:37> Date of Encounter: 10/13/18 Time of Encounter: 09:20 - Assessment and Plan (1) C. difficile colitis Current Visit: Yes Status: Acute -Diarrhea more frequent today -Abdominal pain and distension improving further -CT abd 10/11/18 redemonstrated pancolitis compatible with C diff -Leukocytosis continues to slowly trend upwards to 13.3 from 12.2 yst. Afebrile -Will monitor continued increases in wbc -Clears advanced to full liquids today -Continue abx for C diff Subjective Narrative: Had episode of chest pain overnight. He says abdominal pain and distention is improved more from yesterday but diarrhea has worsened. He has had 4-5 episodes diarrhea this morning. He denies subjective fever/chills, N/V, chest pain, dyspnea. Objective Vital Signs - Last 8 Hours Temp Pulse Resp BP Pulse Ox 10/13/18 07:27 98.1 F 93 16 118/64 94 10/13/18 06:04 135/75 10/13/18 04:03 99.0 F 108 18 123/74 94 10/13/18 03:29 16 95 10/13/18 02:54 98.8 F 114 20 156/70 94 Intake and Output 10/12/18 10/13/18 10/13/18 23:59 07:59 15:59 Intake Total 226.0 / 226.0 136 / 136 100 / 100 Output Total 0 / 0 0 / 0 Balance 226.0 / 226.0 136 / 136 100 / 100 Intake: IV Fluids 226.0 / 226.0 136 / 136 100 / 100 Heparin 25,000 UNIT/250 ML D5W 106.0 / 106.0 136 / 136 25,000 unit In 250 ml @ 14 UNIT /KG/HR 15.4 mls/hr IVC .[id number] [facility] Rx#:[id number] Rocephin 2,000 MG In Water for inj. (sterile) 20 ML @ 600 mls/ hr IVP Q24H [facility] Rx#:[id number] Flagyl Premix 500 MG/100 ML 500 100 / 100 mg In 100 ml @ 100 mls/hr IVPB Q8H [facility] Rx#:[id number] Potassium Chloride 10 mEq/100mL 100 / 100 10 meq In 100 ml @ 100 mls/hr IVPB Q1H [facility] Rx#:[id number] Oral 0 / 0 0 / 0 0 / 0 Output: Urine 0 / 0 0 / 0 Other: Meal Breakfast Percent of Meal Consumed 0% Stool Size Smear Small Stool Consistency loose Stool Color Brown Green # Voids 1 1 # Bowel Movements 1 1 Weight 111.7 kg Blood Glucose* 200 165 Patient Weight 10/13/18 23:59 Weight 111.7 kg - General physical appearance well developed, well nourished, no distress - Eyes normal ocular movement - ENT dry mucosa - Neck Neck exam: trachea midline - Respiratory normal expansion, normal respiratory effort, clear to auscultation - Cardiovascular Cardiovascular exam: Present: RRR. Absent: bradycardia, tachycardia, irregular rhythm, murmurs, clicks, rubs, gallop, distant heart sounds, JVD - Abdomen Abdomen: Present: bowel sounds present, soft, distended, tender. Absent: masses, guarding, rebound, rigid Abdominal Tenderness: epigastic, RLQ, LLQ - Integumentary no rash - Neurologic CN 2-12 grossly intact, normal coordination - Psychiatric oriented to time, oriented to person, oriented to place, speech is normal - Labs 10/13/18 01:02 10/13/18 01:02 Diabetes panel 10/13/18 10/13/18 Range/Units 01:02 01:02 Sodium 138 (136-145) mEq/L Potassium 3.1 L (3.5-5.1) mEq/L Chloride 107 (98-107) mEq/L Carbon Dioxide 18 L (23-29) mEq/L BUN 69 H (8-23) mg/dL Creatinine 3.11 H (0.70-1.30) mg/dL Glucose 195 H (70-105) mg/dL Calcium 7.9 L (8.6-10.3) mg/dL AST 19 (13-39) Units/L ALT 10 (7-52) Units/L Alkaline Phosphatase 77 (34-104) Units/L Albumin 2.6 L (3.5-5.7) g/dL Calcium panel 10/13/18 10/13/18 Range/Units 01:02 01:02 Calcium 7.9 L (8.6-10.3) mg/dL Albumin 2.6 L (3.5-5.7) g/dL Pituitary panel 10/13/18 Range/Units 01:02 Sodium 138 (136-145) mEq/L Potassium 3.1 L (3.5-5.1) mEq/L Chloride 107 (98-107) mEq/L Carbon Dioxide 18 L (23-29) mEq/L BUN 69 H (8-23) mg/dL Creatinine 3.11 H (0.70-1.30) mg/dL Glucose 195 H (70-105) mg/dL Calcium 7.9 L (8.6-10.3) mg/dL Adrenal panel 10/13/18 10/13/18 Range/Units 01:02 01:02 Sodium 138 (136-145) mEq/L Potassium 3.1 L (3.5-5.1) mEq/L Chloride 107 (98-107) mEq/L Carbon Dioxide 18 L (23-29) mEq/L BUN 69 H (8-23) mg/dL Creatinine 3.11 H (0.70-1.30) mg/dL Glucose 195 H (70-105) mg/dL Calcium 7.9 L (8.6-10.3) mg/dL Total Bilirubin 0.5 (0.3-1.0) mg/dL AST 19 (13-39) Units/L ALT 10 (7-52) Units/L Alkaline Phosphatase 77 (34-104) Units/L Albumin 2.6 L (3.5-5.7) g/dL Consult Discharge Plan - Plan Referrals: [facility] [Outside] <Kwaku Pike - Last Filed: 10/14/18 07:19> Date of Encounter: 10/13/18 Objective Vital Signs - Last 8 Hours Temp Pulse Resp BP Pulse Ox 10/14/18 04:08 98.7 F 105 15 115/64 94 Intake and Output 10/13/18 10/13/18 10/14/18 15:59 23:59 07:59 Intake Total 634 / 634 470 / 470 489 / 489 Output Total 0 / 0 Balance 634 / 634 470 / 470 489 / 489 Intake: IV Fluids 514 / 514 350 / 350 249 / 249 Heparin 25,000 UNIT/250 ML D5W 114 / 114 250 / 250 149 / 149 25,000 unit In 250 ml @ 14 UNIT /KG/HR 15.4 mls/hr IVC .[id number] [facility] Rx#:[id number] Flagyl Premix 500 MG/100 ML 500 100 / 100 100 / 100 100 / 100 mg In 100 ml @ 100 mls/hr IVPB Q8H [facility] Rx#:[id number] Potassium Chloride 10 mEq/100mL 300 / 300 10 meq In 100 ml @ 100 mls/hr IVPB Q1H [facility] Rx#:[id number] Oral 120 / 120 120 / 120 240 / 240 Output: Urine 0 / 0 Other: Meal Breakfast Dinner Percent of Meal Consumed 10% 5% Stool Size Large Small Stool Consistency liquid loose Stool Color Brown Brown # Voids 1 1 # Bowel Movements 1 Weight 111 kg Blood Glucose* 239 230 Patient Weight 10/14/18 23:59 Weight 111 kg - Labs 10/14/18 00:31 10/14/18 00:31 Diabetes panel 10/14/18 Range/Units 00:31 Sodium 135 L (136-145) mEq/L Potassium 3.6 (3.5-5.1) mEq/L Chloride 106 (98-107) mEq/L Carbon Dioxide 18 L (23-29) mEq/L BUN 73 H (8-23) mg/dL Creatinine 3.15 H (0.70-1.30) mg/dL Glucose 193 H (70-105) mg/dL Calcium 8.1 L (8.6-10.3) mg/dL Calcium panel 10/14/18 Range/Units 00:31 Calcium 8.1 L (8.6-10.3) mg/dL Pituitary panel 10/14/18 Range/Units 00:31 Sodium 135 L (136-145) mEq/L Potassium 3.6 (3.5-5.1) mEq/L Chloride 106 (98-107) mEq/L Carbon Dioxide 18 L (23-29) mEq/L BUN 73 H (8-23) mg/dL Creatinine 3.15 H (0.70-1.30) mg/dL Glucose 193 H (70-105) mg/dL Calcium 8.1 L (8.6-10.3) mg/dL Adrenal panel 10/14/18 Range/Units 00:31 Sodium 135 L (136-145) mEq/L Potassium 3.6 (3.5-5.1) mEq/L Chloride 106 (98-107) mEq/L Carbon Dioxide 18 L (23-29) mEq/L BUN 73 H (8-23) mg/dL Creatinine 3.15 H (0.70-1.30) mg/dL Glucose 193 H (70-105) mg/dL Calcium 8.1 L (8.6-10.3) mg/dL - Attending Attestation I examined this patient and my medical decision-making was reviewed with the Resident Physician. I agree with the documented findings, disposition and treatment plan as described except to the extent set forth below. Review the above assessment and evaluation agree with the above plan. Patient states his abdominal pain has decreased. He still having diarrhea but no rectal bleeding. Minimal abdominal pain on palpation. Positive bowel sounds. Continue with IV antibiotics. Will allow full liquids today and continue to monitor. Continue to closely follow WBC.
--- NOTE | 2018-10-13 10:55 | Nephrology Progress Note ---
Addendum entered and electronically signed by Ollie Montes DO 10/13/18 18:47: I have personally performed a face to face evaluation on this patient. I have reviewed and agree with the care plan. History and Exam by me shows: Renal function holding stable if not slightly better. No indication for PROTECTIVE SERVICES OFFICER at this time. He remains complex and required a high degree of MDM and E/M. See below for full details. Original Note: Date of Encounter: 10/13/18 Time of Encounter: 10:53 - Assessment and Plan (1) Acute kidney failure Current Visit: No Status: Acute Stable BUCKY on CKD stage IV, no indication for PROTECTIVE SERVICES OFFICER. GFR is 20 Scr is 3.11. Avoid nephrotoxins and renal dose. Strict I/O Cdiff: per primary/surgery. Afebrile since 10/10/18. Anemia, likely multifactorial. Goal Hgb is 10-11. Hgb is 9.4 today, stable. Qualifiers: Acute renal failure type: unspecified Qualified Code(s): N17.9 - Acute kidney failure, unspecified (2) Anemia Current Visit: No Status: Chronic See above. Qualifiers: Anemia type: due to chronic kidney disease Chronic kidney disease stage: stage 4 (severe) Qualified Code(s): N18.4 - Chronic kidney disease, stage 4 (severe); D63.1 - Anemia in chronic kidney disease (3) HTN (hypertension) Current Visit: No Status: Chronic 123/76 at bedside, stable. Qualifiers: Hypertension type: essential hypertension Qualified Code(s): I10 - Essential (primary) hypertension (4) Anemia Current Visit: No Status: Chronic See above. Qualifiers: Anemia type: unspecified type Qualified Code(s): D64.9 - Anemia, unspecified (5) C. difficile diarrhea Current Visit: Yes Status: Acute See above. (6) DVT (deep venous thrombosis) Current Visit: Yes Status: Acute Currently on Heparin gtt. Qualifiers: DVT location: lower extremity Affected thrombotic vein of extremity: unspecified vein of extremity Chronicity: acute Laterality: right Qualified Code(s): I82.401 - Acute embolism and thrombosis of unspecified deep veins of right lower extremity (7) CKD (chronic kidney disease), stage IV Current Visit: Yes Status: Chronic (8) Metabolic acidosis Current Visit: Yes Status: Acute (9) Hyponatremia Current Visit: Yes Status: Acute (10) Hypokalemia Current Visit: Yes Status: Acute K is 3.1, stable. 40 IV lasix ordered. PO ordered as well. Subjective Principal diagnosis: BUCKY on CKD Interval history: Pt seen and examined, is feeling a little better today. States abdominal pain has decreased. Denies nausea, vomiting. Admits to diarrhea. Denies chest pain or shortness of breath. Developed Afib overnight, cardio consult. Objective - Vital Signs Vital signs: Vital Signs Temp Pulse Resp BP Pulse Ox 10/13/18 10:02 98.1 F 72 16 137/54 97 10/13/18 07:27 98.1 F 93 16 118/64 94 10/13/18 06:04 135/75 10/13/18 04:03 99.0 F 108 18 123/74 94 10/13/18 03:29 16 95 10/13/18 02:54 98.8 F 114 20 156/70 94 10/12/18 18:56 98.0 F 96 16 136/60 95 10/12/18 14:05 98.0 F 92 16 151/70 97 Intake and Output 10/12/18 10/13/18 10/13/18 23:59 07:59 15:59 Intake Total 226.0 / 226.0 136 / 136 200 / 200 Output Total 0 / 0 0 / 0 Balance 226.0 / 226.0 136 / 136 200 / 200 Intake: IV Fluids 226.0 / 226.0 136 / 136 200 / 200 Heparin 25,000 UNIT/250 ML D5W 106.0 / 106.0 136 / 136 25,000 unit In 250 ml @ 14 UNIT /KG/HR 15.4 mls/hr IVC .[id number] [facility] Rx#:[id number] Rocephin 2,000 MG In Water for 20 / 20 inj. (sterile) 20 ML @ 600 mls/ hr IVP Q24H [facility] Rx#:[id number] Flagyl Premix 500 MG/100 ML 500 100 / 100 mg In 100 ml @ 100 mls/hr IVPB Q8H [facility] Rx#:[id number] Potassium Chloride 10 mEq/100mL 200 / 200 10 meq In 100 ml @ 100 mls/hr IVPB Q1H [facility] Rx#:[id number] Oral 0 / 0 0 / 0 0 / 0 Output: Urine 0 / 0 0 / 0 Other: Meal Breakfast Percent of Meal Consumed 0% Stool Size Smear Small Large Stool Consistency loose loose Stool Color Brown Brown Green Yellow # Voids 1 1 1 # Bowel Movements 1 1 1 Weight 111.7 kg Blood Glucose* 200 165 Patient Weight 10/13/18 23:59 Weight 111.7 kg - General Appearance General appearance: Present: well-developed, well-nourished EENT: Present: ATNC, hearing intact, vision intact (d) Neck: Present: supple Respiratory: Present: clear Cardiology: Present: edema (Trace bilat lower extremity edema.), normal S1, normal S2 Gastrointestinal: Present: normoactive bowel sounds, no tenderness, no guarding Integumentary: Present: no rash, warm and dry Neurologic: Present: no focal deficit, alert and oriented x3 Musculoskeletal: Present: no deformities, no erythema Psychiatric: Present: mood/affect appropriate, cooperative - Lab 10/13/18 01:02 10/13/18 01:02 Most recent lab results Calcium 7.9 mg/dL (8.6-10.3) L 10/13/18 01:02 Phosphorus 2.9 mg/dL (2.7-4.5) 10/12/18 06:12 Magnesium 1.8 mg/dL (1.6-2.6) 10/13/18 01:02 Consult Discharge Plan - Plan Referrals: NONE,PCP [Primary Care Provider] -
[2018-10-13] MEDS ORDERED: Perflutren Lipid Microsphere 1.3 ML in 0.9 % Sodium Chloride 8.7 ML IVP ONE (11:26)
[2018-10-13] MEDS ORDERED: *HR* OxyCODONE Immed Rel 5 MG TABLET PO PRN (12:28)
[2018-10-13] MEDS: Heparin 25,000 UNIT/250 ML D5W 25,000 UNIT/250 ML IV.SOLN IVC SCH (12:30)
[2018-10-13] MEDS ORDERED: Acetaminophen 325 MG TABLET PO PRN (12:35)
--- NOTE | 2018-10-13 12:38 | Internal Med Progress Note ---
Hospitalist Progress Note - Encounter Date of Encounter: 10/13/18 Time of Encounter: 12:36 - Subjective Interval History: Patient seen and examined at bedside. Overall he states he is feeling better. He feels like his diarrhea is still present but improving. Feels like his abdominal pain is much improved. He reports bilateral knee pain. He states t his been going on for several days and has waxing and waning. Denies fever, chills. He states he had chest tightness overnight that is no longer present. - Exam Vitals: Temp Pulse Resp BP Pulse Ox 98.1 F 72 16 137/54 97 10/13/18 10:02 10/13/18 10:02 10/13/18 10:02 10/13/18 10:02 10/13/18 10:02 Exam: Heart: Irregularly irregular, tachycardia, no murmurs, rubs or gallops Lungs: Clear to auscultation bilaterally, no rales, rhonchi, wheezes Abdomen: Soft, nontender. Distended but improved. No fluid wave noted. No peritoneal signs. Hypoactive bowel sounds. Extremities: Right lower extremity: No erythema or warmth noted Musculoskeletal: Bilateral knees show no effusion, warmth, erythema - Assessment and Plan (1) Sepsis Current Visit: Yes Status: Acute Assessment and Plan: Secondary to C. difficile colitis. Leukocytosis slightly worse to 13.3 however bandemia has resolved. Lactic acid was negative. Continue oral vancomycin, IV Flagyl for C. difficile colitis. (2) C. difficile colitis Current Visit: Yes Status: Acute Assessment and Plan: C. difficile toxin positive. Has continued diarrhea but improved. Surgery are following along but no urgent surgical intervention required at this time. Continue by mouth vancomycin, IV Flagyl (3) Atrial fibrillation with RVR Current Visit: Yes Status: Acute Assessment and Plan: Patient had episode of atrial fibrillation overnight, rate noted to be elevated. Likely due to underlying sepsis. Patient did become symptomatic with chest tightness that resolved with one-time dose of beta jesse. Blood pressure had been borderline low earlier in the hospitalization however is better now, likely restart beta jesse however will defer to cardiology. Cardiology was consulted overnight, she recommendations. Echocardiogram has been ordered. Patient is artery on heparin for DVT treatment and will be bridged to warfarin with a goal INR of 2.3. (4) DVT (deep venous thrombosis) Current Visit: Yes Status: Acute Assessment and Plan: Patient was recently diagnosed on October 08 with DVT. Had been on Lovenox bridging to warfarin at home. INR subtherapeutic on presentation, was placed on heparin drip. We will continue for now, restart warfarin with goal INR of 2-3 (5) Acute kidney injury superimposed on chronic kidney disease Current Visit: No Status: Acute Assessment and Plan: Creatinine slightly improved today at 3.11. Good urine output. Creatinine appears to be at baseline. Appreciate nephrology recommendations. (6) Cirrhosis Current Visit: No Status: Chronic Assessment and Plan: Patient has known cirrhosis with evidence of ascites, significant IV fluid as well as an abdominal infection likely contributing. Abdominal pain is resolved today, spontaneous bacterial peritonitis extremely unlikely. We will discontinue Rocephin. (7) HTN (hypertension) Current Visit: No Status: Chronic Assessment and Plan: Blood pressure mildly stable. Continue to hold home medication, consider restarting beta jesse given A. fib RVR as above pending cardiology recommendations. (8) Diabetes mellitus Current Visit: No Status: Chronic Assessment and Plan: Blood sugar under good control at this time. Continue sliding scale insulin and adjust as necessary. (9) CHF (congestive heart failure) Current Visit: No Status: Resolved Assessment and Plan: Patient has history of chronic diastolic heart failure, no evidence of acute exacerbation. Repeat echo pending given new onset A. fib. (10) Knee pain, bilateral Current Visit: Yes Status: Acute Assessment and Plan: Patient has bilateral knee pain that he states is worse recently but he has had a previously. He states it is causing him to have trouble walking.. We will treat symptomatically with Tylenol and oxycodone as needed for pain. Will obtain x-ray. On exam patient did not have any effusion or erythema noted. - Time Spent with Patient Total time spent is greater than 50% in coordination of care (as documented) at patient's floor/unit and/or counseling patient: Internal Medicine: Result - Labs CBC & Chem 7: 10/13/18 01:02 10/13/18 01:02 Labs: Short CBC 10/13/18 Range/Units 01:02 WBC 13.3 H (4.3-11.1) K/mcL Hgb 9.4 L (12.9-16.9) g/dL Hct 28.0 L (37.5-50.1) % Plt Count 149 (140-400) K/mcL Neutrophils # 10.4 H (1.6-8.9) K/mcL BMP 10/13/18 01:02 Sodium 138 Potassium 3.1 L Chloride 107 Carbon Dioxide 18 L BUN 69 H Creatinine 3.11 H Glucose 195 H Calcium 7.9 L Cardiac Enzymes 10/13/18 Range/Units 06:41 Troponin I 0.03 (< 0.04) ng/mL Liver Function 10/13/18 Range/Units 01:02 Total Bilirubin 0.5 (0.3-1.0) mg/dL Direct Bilirubin 0.2 (0.0-0.2) mg/dL AST 19 (13-39) Units/L ALT 10 (7-52) Units/L Alkaline Phosphatase 77 (34-104) Units/L Albumin 2.6 L (3.5-5.7) g/dL - ABG Interpretation ABG results: PT/INR, D-dimer PT 17.3 Seconds (9.4-12.1) H 10/13/18 01:02 Consult Discharge Plan - Plan Referrals: NONE,PCP [Primary Care Provider] - _ (1) Sepsis Qualifiers: Sepsis type: sepsis due to unspecified organism Qualified Code(s): A41.9 - Sepsis, unspecified organism (4) DVT (deep venous thrombosis) Qualifiers: DVT location: lower extremity Affected thrombotic vein of extremity: unspecified vein of extremity Chronicity: acute Laterality: right Qualified Code(s): I82.401 - Acute embolism and thrombosis of unspecified deep veins of right lower extremity (6) Cirrhosis Qualifiers: Hepatic cirrhosis type: unspecified hepatic cirrhosis Ascites presence: with ascites Qualified Code(s): K74.60 - Unspecified cirrhosis of liver; R18.8 - Other ascites (7) HTN (hypertension) Qualifiers: Hypertension type: essential hypertension Qualified Code(s): I10 - Essential (primary) hypertension (8) Diabetes mellitus Qualifiers: Diabetes mellitus type: type 2 Diabetes mellitus snf insulin use: with snf use Diabetes mellitus complication status: with kidney complications Diabetes mellitus complication detail: with chronic kidney disease Chronic kidney disease stage: stage 4 (severe) Qualified Code(s): E11.22 - Type 2 diabetes mellitus with diabetic chronic kidney disease; N18.4 - Chronic kidney disease, stage 4 (severe); 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
--- NOTE | 2018-10-13 13:33 | Event Note ---
Date of Encounter: 10/13/18 Time of Encounter: 13:31 Unable to cosign residents consultation from earlier today. Please consider this my attestation to that consultation. Patient is a 73-year-old male with a history of CAD, prior PCI, diabetes, hyperlipidemia, essential hypertension, and PAD. He has a history of C. difficile colitis and was admitted for diarrhea. During his evaluation, he was noted to be in atrial fibrillation with RVR, which is is a new diagnosis. Patient denies palpitations, lightheadedness, near-syncope, or syncope. Currently, his heart rate appears to be well controlled. He is early on anticoagulation due to her history of DVTs. Ordinarily, we would consider an ischemic evaluation in the setting of newly diagnosed atrial fibrillation. However, given patient's comorbidities, including current infectious issues, this can be performed as an outpatient. Echocardiogram demonstrates preserved LV function. No further inpatient cardiology recommendations. Necessary at this time. Follow-up with cardiology as outpatient. All questions were answered. Cardiology will sign off. Thanks, Jaspal Alvarez DO, FACC
[2018-10-13] MEDS: *HR* OxyCODONE Immed Rel 5 MG TABLET PO PRN ×2 (14:15→20:40)
[2018-10-13] MEDS ORDERED: *HR* Warfarin 5 MG TABLET PO ONE (18:00)
[2018-10-13] MEDS ORDERED: Warfarin perPT PO PRN (18:00)
[2018-10-14] MEDS: Heparin 25,000 UNIT/250 ML D5W 25,000 UNIT/250 ML IV.SOLN IVC SCH ×2 (00:23→13:27)
[2018-10-14 00:54] LABS: Basophils % 0.2 %; Eosinophils # 0.3 K/mcL (0.0-0.6); Eosinophils % 1.9 %; Hematocrit 27.8 % (37.5-50.1); Hemoglobin 9.4 g/dL (12.9-16.9); Immature Granulocytes % 4.6 % (0-4); Lymphocytes # 1.2 K/mcL (0.6-4.6); Lymphocytes % 7.5 %; Mean Corpuscular HGB Conc 33.8 g/dL (31.6-35.5); Mean Corpuscular Hemoglobin 30.7 pg (28.0-33.3); Mean Corpuscular Volume 90.8 fL (83.0-100.0); Mean Platelet Volume 10.8 fL (9.4-12.4); Monocytes # 1.2 K/mcL (0.0-1.3); Monocytes % 7.5 %; Neutrophils # 12.7 K/mcL (1.6-8.9); Nucleated Red Blood Cells 0.2 /100 WBC (0); Platelet Count 159 K/mcL (140-400); Red Blood Count 3.06 M/mcL (4.19-5.50); Red Cell Distribution Width 14.9 % (11.5-14.5); Segmented Neutrophils % 78.3 %
[2018-10-14 01:02] LABS: INR 1.7; Prothrombin Time 18.8 Seconds (9.4-12.1)
[2018-10-14 01:14] LABS: Calcium 8.1 mg/dL (8.6-10.3); Potassium 3.6 mEq/L (3.5-5.1)
[2018-10-14] MEDS: MetroNIDAZOLE 500 MG/100 ML 500 MG/100 ML BAG IVPB SCH ×3 (01:51→17:47)
[2018-10-14] MEDS: *HR* OxyCODONE Immed Rel 5 MG TABLET PO PRN (02:41)
[2018-10-14] MEDS ORDERED: IPRATROPIUM BROMIDE NS PRN (07:41)
[2018-10-14] MEDS ORDERED: Methocarbamol 500 MG TABLET PO PRN (07:41)
[2018-10-14] MEDS ORDERED: traZODone 50 MG TABLET PO PRN (07:41)
[2018-10-14] MEDS: Insulin LISPRO 300 UNITS/3 ML VIAL SQ SCH ×4 (08:19→21:13)
[2018-10-14] MEDS: Calcium Acetate 667 MG CAPSULE PO SCH ×3 (08:20→17:50)
[2018-10-14] MEDS: Vancomycin Oral Soln 125 MG/2.5 ML UDC PO SCH ×4 (08:21→21:12)
[2018-10-14] MEDS: Cyanocobalamin (B-12) 1,000 MCG TABLET PO SCH (08:22)
[2018-10-14] MEDS: Gabapentin 300 MG CAPSULE PO SCH ×2 (08:23→21:10)
[2018-10-14] MEDS: Ranolazine 500 MG TAB.ER.12H PO SCH ×2 (10:10→21:11)
--- NOTE | 2018-10-14 10:30 | General Surgery Progress Note ---
<Frank Turner - Last Filed: 10/14/18 10:26> Date of Encounter: 10/14/18 Time of Encounter: 10:00 - Assessment and Plan (1) C. difficile colitis Current Visit: Yes Status: Acute -Diarrhea improved and had only 1 episode today -Abdominal pain resolved and distention improving further -CT abd 10/11/18 redemonstrated pancolitis compatible with C diff -Improving symptomatically but his leukocytosis continues to trend upwards to 16.2 today, 13.3 yst, afebrile -Will continue to monitor wbc and if continues to rise a possible surgical inter vention may be necessary -Continue full liquids today -Continue current doses of abx for C diff Subjective Narrative: Feeling improved today. Says the lower abdominal pain has resolved and distention is improving further. He has had only 1 episode of diarrhea today. He has been able to tolerate more full liquid diet today compared to yesterday. He denies subjective fever/chills, N/V, blood in stool. Objective Vital Signs - Last 8 Hours Temp Pulse Resp BP Pulse Ox 10/14/18 07:24 98.0 F 116 15 114/55 96 10/14/18 04:08 98.7 F 105 15 115/64 94 Intake and Output 10/13/18 10/14/18 10/14/18 23:59 07:59 15:59 Intake Total 470 / 470 489 / 489 Output Total 0 / 0 Balance 470 / 470 489 / 489 Intake: IV Fluids 350 / 350 249 / 249 Heparin 25,000 UNIT/250 ML D5W 250 / 250 149 / 149 25,000 unit In 250 ml @ 14 UNIT /KG/HR 15.4 mls/hr IVC .[id number] [facility] Rx#:[id number] Flagyl Premix 500 MG/100 ML 500 100 / 100 100 / 100 mg In 100 ml @ 100 mls/hr IVPB Q8H [facility] Rx#:[id number] Oral 120 / 120 240 / 240 Output: Urine 0 / 0 Other: Meal Dinner Percent of Meal Consumed 5% Stool Size Small Stool Consistency loose Stool Color Brown # Voids 1 Weight 111 kg Blood Glucose* 230 151 Patient Weight 10/14/18 23:59 Weight 111 kg - General physical appearance well developed, well nourished, no distress - Eyes normal ocular movement - ENT dry mucosa - Neck Neck exam: trachea midline - Respiratory normal expansion, normal respiratory effort, clear to auscultation - Cardiovascular Cardiovascular exam: Present: tachycardia, regular rhythm. Absent: RRR, bradycardia, irregular rhythm, murmurs, clicks, rubs, gallop, distant heart sounds, JVD - Abdomen Abdomen: Present: bowel sounds present, soft, distended, tender (mild LLQ). Absent: guarding, rebound, rigid, peritoneal - Integumentary no rash - Neurologic CN 2-12 grossly intact, normal coordination - Psychiatric oriented to time, oriented to person, oriented to place, speech is normal - Labs 10/14/18 00:31 10/14/18 00:31 Diabetes panel 10/14/18 Range/Units 00:31 Sodium 135 L (136-145) mEq/L Potassium 3.6 (3.5-5.1) mEq/L Chloride 106 (98-107) mEq/L Carbon Dioxide 18 L (23-29) mEq/L BUN 73 H (8-23) mg/dL Creatinine 3.15 H (0.70-1.30) mg/dL Glucose 193 H (70-105) mg/dL Calcium 8.1 L (8.6-10.3) mg/dL Calcium panel 10/14/18 Range/Units 00:31 Calcium 8.1 L (8.6-10.3) mg/dL Pituitary panel 10/14/18 Range/Units 00:31 Sodium 135 L (136-145) mEq/L Potassium 3.6 (3.5-5.1) mEq/L Chloride 106 (98-107) mEq/L Carbon Dioxide 18 L (23-29) mEq/L BUN 73 H (8-23) mg/dL Creatinine 3.15 H (0.70-1.30) mg/dL Glucose 193 H (70-105) mg/dL Calcium 8.1 L (8.6-10.3) mg/dL Adrenal panel 10/14/18 Range/Units 00:31 Sodium 135 L (136-145) mEq/L Potassium 3.6 (3.5-5.1) mEq/L Chloride 106 (98-107) mEq/L Carbon Dioxide 18 L (23-29) mEq/L BUN 73 H (8-23) mg/dL Creatinine 3.15 H (0.70-1.30) mg/dL Glucose 193 H (70-105) mg/dL Calcium 8.1 L (8.6-10.3) mg/dL Consult Discharge Plan - Plan Referrals: [facility] [Outside] - 10/23/18 10:45 am <Kwaku Pike Ronel - Last Filed: 10/15/18 06:53> Date of Encounter: 10/14/18 Objective Vital Signs - Last 8 Hours Temp Pulse Resp BP Pulse Ox 10/15/18 04:00 99 F 86 18 120/67 95 10/15/18 00:44 98.7 F 79 18 130/65 94 Intake and Output 10/14/18 10/14/18 10/15/18 15:59 23:59 07:59 Intake Total 201 / 201 274 / 274 276 / 276 Output Total 250 / 250 Balance 201 / 201 24 / 24 276 / 276 Intake: IV Fluids 201 / 201 274 / 274 76 / 76 Heparin 25,000 UNIT/250 ML D5W 101 / 101 174 / 174 76 / 76 25,000 unit In 250 ml @ 14 UNIT /KG/HR 15.4 mls/hr IVC .[id number] [facility] Rx#:[id number] Flagyl Premix 500 MG/100 ML 500 100 / 100 100 / 100 mg In 100 ml @ 100 mls/hr IVPB Q8H [facility] Rx#:[id number] Oral 0 / 0 0 / 0 200 / 200 Output: Urine/Stool Mix 250 / 250 Other: Meal Lunch Dinner Percent of Meal Consumed 0% 0% Stool Size Moderate Stool Consistency loose Stool Color Brown Weight 112.1 kg Blood Glucose* 167 235 Patient Weight 10/15/18 23:59 Weight 112.1 kg - Labs 10/15/18 02:50 10/15/18 02:50 Diabetes panel 10/15/18 Range/Units 02:50 Sodium 134 L (136-145) mEq/L Potassium 3.9 (3.5-5.1) mEq/L Chloride 107 (98-107) mEq/L Carbon Dioxide 19 L (23-29) mEq/L BUN 79 H (8-23) mg/dL Creatinine 3.41 H (0.70-1.30) mg/dL Glucose 200 H (70-105) mg/dL Calcium 8.2 L (8.6-10.3) mg/dL Calcium panel 10/15/18 Range/Units 02:50 Calcium 8.2 L (8.6-10.3) mg/dL Pituitary panel 10/15/18 Range/Units 02:50 Sodium 134 L (136-145) mEq/L Potassium 3.9 (3.5-5.1) mEq/L Chloride 107 (98-107) mEq/L Carbon Dioxide 19 L (23-29) mEq/L BUN 79 H (8-23) mg/dL Creatinine 3.41 H (0.70-1.30) mg/dL Glucose 200 H (70-105) mg/dL Calcium 8.2 L (8.6-10.3) mg/dL Adrenal panel 10/15/18 Range/Units 02:50 Sodium 134 L (136-145) mEq/L Potassium 3.9 (3.5-5.1) mEq/L Chloride 107 (98-107) mEq/L Carbon Dioxide 19 L (23-29) mEq/L BUN 79 H (8-23) mg/dL Creatinine 3.41 H (0.70-1.30) mg/dL Glucose 200 H (70-105) mg/dL Calcium 8.2 L (8.6-10.3) mg/dL - Attending Attestation I examined this patient and my medical decision-making was reviewed with the Resident Physician. I agree with the documented findings, disposition and treatment plan as described except to the extent set forth below. Review the above assessment and evaluation with the resident and agree with the above plan. Patient has no abdominal pain on my examination. One bowel movement yesterday. No nausea or vomiting. Will continue with full liquids for now and continue with oral and IV antibiotics. Continue to follow WBC (white count did increase to 16,000 today).
[2018-10-14] MEDS: Budesonide/Formoterol 80/4.5 MDI IH SCH ×2 (11:09→19:49)
[2018-10-14] MEDS: Tiotropium 18 MCG inhalation IH SCH (11:10)
--- NOTE | 2018-10-14 11:34 | Nephrology Progress Note ---
Addendum entered and electronically signed by Ollie Montes DO 10/14/18 17:26: I have personally performed a face to face evaluation on this patient. I have reviewed and agree with the care plan. History and Exam by me shows: His renal function has held stable during this admission and he will not require VIROLOGIST afterall. He still has CKD stage IV and will Nephrology follow up and would also agree with the previously discussed [facility] (discussed as a referral from prior hospitalization). The pt already has a follow up appt with my colleague Dr. Wei in early November. Continue to follow a renal protective strategy. I will sign-off at this point, but please feel free to call or page me with any renal questions. Thank you. Original Note: Date of Encounter: 10/14/18 Time of Encounter: 11:32 - Assessment and Plan (1) Acute kidney failure Current Visit: No Status: Acute Stable BUCKY on CKD stage IV, no indication for VIROLOGIST. GFR is 20 Scr is 3.15 Avoid nephrotoxins and renal dose. Strict I/O Cdiff: per primary/surgery. Afebrile since 10/10/18. Anemia, likely multifactorial. Goal Hgb is 10-11. Hgb is 9.4 today, stable. Qualifiers: Acute renal failure type: unspecified Qualified Code(s): N17.9 - Acute kidney failure, unspecified (2) Anemia Current Visit: No Status: Chronic See above. Qualifiers: Anemia type: due to chronic kidney disease Chronic kidney disease stage: stage 4 (severe) Qualified Code(s): N18.4 - Chronic kidney disease, stage 4 (severe); D63.1 - Anemia in chronic kidney disease (3) HTN (hypertension) Current Visit: Yes Status: Chronic 123/76 at bedside, stable. Qualifiers: Hypertension type: essential hypertension Qualified Code(s): I10 - Essential (primary) hypertension (4) Anemia Current Visit: No Status: Chronic See above. Qualifiers: Anemia type: unspecified type Qualified Code(s): D64.9 - Anemia, unspecified (5) C. difficile diarrhea Current Visit: Yes Status: Acute See above. (6) DVT (deep venous thrombosis) Current Visit: Yes Status: Acute Currently on Heparin gtt. Qualifiers: DVT location: lower extremity Affected thrombotic vein of extremity: unspecified vein of extremity Chronicity: acute Laterality: right Qualified Code(s): I82.401 - Acute embolism and thrombosis of unspecified deep veins of right lower extremity (7) CKD (chronic kidney disease), stage IV Current Visit: Yes Status: Chronic (8) Metabolic acidosis Current Visit: Yes Status: Acute (9) Hyponatremia Current Visit: Yes Status: Acute (10) Hypokalemia Current Visit: Yes Status: Acute K is 3.1, stable. 40 IV lasix ordered. PO ordered as well. Subjective Principal diagnosis: BUCKY on CKD Interval history: Pt seen and examined, is feeling a little better today. States abdominal pain has decreased. 1 episode of diarrhea today. Denies nausea, vomiting. Denies chest pain or shortness of breath. Objective - Vital Signs Vital signs: Vital Signs Temp Pulse Resp BP Pulse Ox 10/14/18 11:30 97.8 F 115 16 125/78 95 10/14/18 07:24 98.0 F 116 15 114/55 96 10/14/18 04:08 98.7 F 105 15 115/64 94 10/13/18 23:10 98.9 F 75 16 139/73 95 10/13/18 20:36 98.2 F 92 16 146/72 97 10/13/18 14:54 97.4 F L 97 16 107/59 95 Intake and Output 10/13/18 10/14/18 10/14/18 23:59 07:59 15:59 Intake Total 470 / 470 489 / 489 100 / 100 Output Total 0 / 0 Balance 470 / 470 489 / 489 100 / 100 Intake: IV Fluids 350 / 350 249 / 249 100 / 100 Heparin 25,000 UNIT/250 ML D5W 250 / 250 149 / 149 25,000 unit In 250 ml @ 14 UNIT /KG/HR 15.4 mls/hr IVC .[id number] [facility] Rx#:[id number] Flagyl Premix 500 MG/100 ML 500 100 / 100 100 / 100 100 / 100 mg In 100 ml @ 100 mls/hr IVPB Q8H [facility] Rx#:[id number] Oral 120 / 120 240 / 240 Output: Urine 0 / 0 Other: Meal Dinner Percent of Meal Consumed 5% Stool Size Small Stool Consistency loose Stool Color Brown # Voids 1 Weight 111 kg Blood Glucose* 230 151 167 Patient Weight 10/14/18 23:59 Weight 111 kg - General Appearance General appearance: Present: well-developed, well-nourished EENT: Present: ATNC, hearing intact, vision intact Neck: Present: supple Respiratory: Present: clear Cardiology: Present: edema (Trace bilat lower extremity edema.), normal S1, normal S2 Gastrointestinal: Present: normoactive bowel sounds, no tenderness, no guarding Integumentary: Present: no rash, warm and dry Neurologic: Present: alert and oriented x3 Musculoskeletal: Present: no deformities, no erythema Psychiatric: Present: mood/affect appropriate, cooperative - Lab 10/14/18 00:31 10/14/18 00:31 Most recent lab results Calcium 8.1 mg/dL (8.6-10.3) L 10/14/18 00:31 Phosphorus 2.9 mg/dL (2.7-4.5) 10/12/18 06:12 Magnesium 1.8 mg/dL (1.6-2.6) 10/13/18 01:02 Consult Discharge Plan - Plan Referrals: [facility] [Outside] - 10/23/18 10:45 am
--- NOTE | 2018-10-14 12:32 | Internal Med Progress Note ---
Hospitalist Progress Note - Encounter Date of Encounter: 10/14/18 Time of Encounter: 09:15 - Subjective Interval History: Pt states his diarrhea is slowing down; had 4 episodes yesterday and only once so far. ABdominal pain also improving. No fever/chills. Denies any chest pain or palpitation. - Exam Vitals: Temp Pulse Resp BP Pulse Ox 97.8 F 115 16 125/78 95 10/14/18 11:30 10/14/18 11:30 10/14/18 11:30 10/14/18 11:30 10/14/18 11:30 Exam: General: A&O x 3 Heart: Irregularly irregular, tachycardia, no murmurs, rubs or gallops Lungs: Clear to auscultation bilaterally, no rales, rhonchi, wheezes Abdomen: Soft, mildly distended but no significant tenderness appreciated. No rebound/guarding/rigidity Musculoskeletal: Bilateral knees show no effusion, warmth, or erythema - Assessment and Plan (1) Sepsis Current Visit: Yes Status: Acute Assessment and Plan: Secondary to C. difficile colitis. Leukocytosis continues to rise to 16 today but bandemia has resolved. Lactic acid was negative. Continue oral vancomycin, IV Flagyl for C. difficile colitis. (2) C. difficile colitis Current Visit: Yes Status: Acute Assessment and Plan: Diarrhea improving on vanc/flagyl, continue Slightly worsening leukocytosis which may be attributed to maturing WBC ( initially had 21% bands) continue to monitor WBC for full liquid today Surgery are following along but no urgent surgical intervention required at this time. (3) Atrial fibrillation with RVR Current Visit: Yes Status: Acute Assessment and Plan: new onset, Likely due to underlying sepsis. will resume coreg at lower dose already on heparin gtt with plan for PO Warfarin only on discharge due to DVT, continue cardiology input appreciated. Echo unremarkable. For outpatient ischemic workup (4) Acute kidney injury superimposed on chronic kidney disease Current Visit: Yes Status: Resolved Assessment and Plan: resolved, creatinine appears to be at baseline. Appreciate nephrology recommendations. (5) HTN (hypertension) Current Visit: Yes Status: Chronic Assessment and Plan: will restart coreg as above continue to hold norvasc and hydralazine (6) Diabetes mellitus Current Visit: Yes Status: Chronic Assessment and Plan: Continue sliding scale insulin and adjust as necessary. (7) Cirrhosis Current Visit: Yes Status: Chronic Assessment and Plan: Patient has known cirrhosis with evidence of ascites may require diagnostic/therapeutic paracentesis if clinically deteriorating (8) DVT (deep venous thrombosis) Current Visit: Yes Status: Acute Assessment and Plan: Patient was recently diagnosed on October 08 with DVT. Had been on Lovenox bridging to warfarin at home. INR subtherapeutic on presentation, was placed on heparin drip. We will continue for now, restart warfarin with goal INR of 2-3 and d/c heparin once INR therapeutic DVT Prophylaxis: hep gtt - Time Spent with Patient Total time spent is greater than 50% in coordination of care (as documented) at patient's floor/unit and/or counseling patient: Greater than 35 minutes Plan of Care Discussed with: patient Internal Medicine: Result - Labs CBC & Chem 7: 10/14/18 00:31 10/14/18 00:31 Labs: Short CBC 10/14/18 Range/Units 00:31 WBC 16.2 H (4.3-11.1) K/mcL Hgb 9.4 L (12.9-16.9) g/dL Hct 27.8 L (37.5-50.1) % Plt Count 159 (140-400) K/mcL Neutrophils # 12.7 H (1.6-8.9) K/mcL BMP 10/14/18 00:31 Sodium 135 L Potassium 3.6 Chloride 106 Carbon Dioxide 18 L BUN 73 H Creatinine 3.15 H Glucose 193 H Calcium 8.1 L - ABG Interpretation ABG results: PT/INR, D-dimer PT 18.8 Seconds (9.4-12.1) H 10/14/18 00:31 - Impressions Impressions Echocardiogram Limited Views 10/13/18 07:11 Impressions: Technically challenging exam due to body habitus. Definity echo contrast was used. LVEF 60%. RV size is dilated. Systolic function is grossly normal. There is a trivial pericardial effusion present. Left Ventricular Wall Motion: Rest Echo Findings All wall segments showed normal motion. Findings: Study Quality * Technically challenging exam due to body habitus. ECG Findings * Normal sinus rhythm. Left Ventricle * LVEF 60%. * Definity echo contrast was used. Right Ventricle * RV size is dilated. Systolic function is grossly normal. Pericardium * There is a trivial pericardial effusion present. Aorta * Normally sized aortic root for BSA, 3.8cm. Knee X-Ray 10/13/18 12:34 IMPRESSION: No acute osseous abnormality. There is soft tissue swelling along the anterior aspect of the right patellar tendon. 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 Diabetes mellitus complication status: with kidney complications Diabetes mellitus complication detail: with chronic kidney disease Chronic kidney disease stage: stage 4 (severe) Qualified Code(s): E11.22 - Type 2 diabetes mellitus with diabetic chronic kidney disease; N18.4 - Chronic kidney disease, stage 4 (severe); Z79.4 - shelter (current) use of insulin (7) Cirrhosis Qualifiers: Hepatic cirrhosis type: unspecified hepatic cirrhosis Ascites presence: with ascites Qualified Code(s): K74.60 - Unspecified cirrhosis of liver; R18.8 - Other ascites (8) DVT (deep venous thrombosis) Qualifiers: DVT location: lower extremity Affected thrombotic vein of extremity: unspecified vein of extremity Chronicity: acute Laterality: right Qualified Code(s): I82.401 - Acute embolism and thrombosis of unspecified deep veins of right lower extremity
[2018-10-14] MEDS ORDERED: 0.9 % Sodium Chloride 1,000 ML IVC SCH (13:00)
[2018-10-14] MEDS ORDERED: *HR* Warfarin 5 MG TABLET PO ONE (18:00)
[2018-10-15] MEDS: Heparin 25,000 UNIT/250 ML D5W 25,000 UNIT/250 ML IV.SOLN IVC SCH (02:38)
[2018-10-15] MEDS: MetroNIDAZOLE 500 MG/100 ML 500 MG/100 ML BAG IVPB SCH ×2 (02:38→09:45)
[2018-10-15 03:07] LABS: Basophils % 0.3 %; Eosinophils # 0.2 K/mcL (0.0-0.6); Eosinophils % 1.8 %; Hematocrit 28.7 % (37.5-50.1); Hemoglobin 9.2 g/dL (12.9-16.9); Immature Granulocytes % 4.7 % (0-4); Lymphocytes % 8.6 %; Mean Corpuscular HGB Conc 32.1 g/dL (31.6-35.5); Mean Corpuscular Hemoglobin 30.7 pg (28.0-33.3); Mean Corpuscular Volume 95.7 fL (83.0-100.0); Mean Platelet Volume 12.1 fL (9.4-12.4); Monocytes # 0.7 K/mcL (0.0-1.3); Monocytes % 6.2 %; Neutrophils # 9.3 K/mcL (1.6-8.9); Nucleated Red Blood Cells 0.5 /100 WBC (0); Platelet Count 112 K/mcL (140-400); Red Cell Distribution Width 15.1 % (11.5-14.5); Segmented Neutrophils % 78.4 %
[2018-10-15 03:14] LABS: INR 2.1; Prothrombin Time 24.1 Seconds (9.4-12.1)
[2018-10-15 03:26] LABS: Calcium 8.2 mg/dL (8.6-10.3); Potassium 3.9 mEq/L (3.5-5.1)
[2018-10-15 07:20] VITALS: BP 122/86
[2018-10-15] MEDS: Insulin LISPRO 300 UNITS/3 ML VIAL SQ SCH ×2 (07:51→13:21)
[2018-10-15] MEDS: Tiotropium 18 MCG inhalation IH SCH (08:17)
[2018-10-15] MEDS: Budesonide/Formoterol 80/4.5 MDI IH SCH (08:17)
[2018-10-15] MEDS: Gabapentin 300 MG CAPSULE PO SCH (09:48)
[2018-10-15] MEDS: Calcium Acetate 667 MG CAPSULE PO SCH ×2 (09:49→13:35)
[2018-10-15] MEDS: Cyanocobalamin (B-12) 1,000 MCG TABLET PO SCH (09:49)
[2018-10-15] MEDS: Ranolazine 500 MG TAB.ER.12H PO SCH (09:49)
--- NOTE | 2018-10-15 10:05 | General Surgery Progress Note ---
Date of Encounter: 10/15/18 Time of Encounter: 10:05 - Assessment and Plan (1) C. difficile diarrhea Current Visit: Yes Status: Acute ok to advance diet. pt refuses hospital food. states the hospitalist told him that he would be going home today and he "will eat when I get home." continue vanc and flagyl at d/c o surgical follow up needed Subjective Patient reports: no new complaints, feels better, pain is less, tolerating liquids well, voiding w/o difficulty, flatus, bowel movement, afebrile Objective Vital Signs - Last 8 Hours Temp Pulse Resp BP Pulse Ox 10/15/18 08:21 16 95 10/15/18 07:10 98.6 F 96 15 122/86 97 10/15/18 04:00 99 F 86 18 120/67 95 Intake and Output 10/14/18 10/15/18 10/15/18 23:59 07:59 15:59 Intake Total 274 / 274 471.5 / 471.5 0 / 0 Output Total 250 / 250 0 / 0 Balance 24 / 24 471.5 / 471.5 0 / 0 Intake: IV Fluids 274 / 274 271.5 / 271.5 Heparin 25,000 UNIT/250 ML D5W 174 / 174 171.5 / 171.5 25,000 unit In 250 ml @ 14 UNIT /KG/HR 15.4 mls/hr IVC .[id number] [facility] Rx#:[id number] Flagyl Premix 500 MG/100 ML 500 100 / 100 100 / 100 mg In 100 ml @ 100 mls/hr IVPB Q8H [facility] Rx#:[id number] Oral 0 / 0 200 / 200 0 / 0 Output: Urine 0 / 0 Urine/Stool Mix 250 / 250 Other: Meal Dinner Breakfast Percent of Meal Consumed 0% 0% Stool Size Moderate Stool Consistency loose Stool Color Brown Weight 112.1 kg Blood Glucose* 235 170 Patient Weight 10/15/18 23:59 Weight 112.1 kg - General physical appearance no distress, no pain - Eyes normal ocular movement - ENT dentures, atraumatic, normocephalic - Neck Neck exam: trachea midline - Respiratory normal expansion, normal respiratory effort, clear to auscultation - Cardiovascular Cardiovascular exam: Present: RRR - Abdomen Abdomen: Present: bowel sounds present, soft, non tender - Integumentary no rash - Neurologic normal coordination, normal sensation - Musculoskeletal normal posture - Psychiatric oriented to time, oriented to person, oriented to place, speech is normal, memory intact - Labs 10/15/18 02:50 10/15/18 02:50 Diabetes panel 10/15/18 Range/Units 02:50 Sodium 134 L (136-145) mEq/L Potassium 3.9 (3.5-5.1) mEq/L Chloride 107 (98-107) mEq/L Carbon Dioxide 19 L (23-29) mEq/L BUN 79 H (8-23) mg/dL Creatinine 3.41 H (0.70-1.30) mg/dL Glucose 200 H (70-105) mg/dL Calcium 8.2 L (8.6-10.3) mg/dL Calcium panel 10/15/18 Range/Units 02:50 Calcium 8.2 L (8.6-10.3) mg/dL Pituitary panel 10/15/18 Range/Units 02:50 Sodium 134 L (136-145) mEq/L Potassium 3.9 (3.5-5.1) mEq/L Chloride 107 (98-107) mEq/L Carbon Dioxide 19 L (23-29) mEq/L BUN 79 H (8-23) mg/dL Creatinine 3.41 H (0.70-1.30) mg/dL Glucose 200 H (70-105) mg/dL Calcium 8.2 L (8.6-10.3) mg/dL Adrenal panel 10/15/18 Range/Units 02:50 Sodium 134 L (136-145) mEq/L Potassium 3.9 (3.5-5.1) mEq/L Chloride 107 (98-107) mEq/L Carbon Dioxide 19 L (23-29) mEq/L BUN 79 H (8-23) mg/dL Creatinine 3.41 H (0.70-1.30) mg/dL Glucose 200 H (70-105) mg/dL Calcium 8.2 L (8.6-10.3) mg/dL Consult Discharge Plan - Plan Instructions: Atrial Fibrillation (DC), Diabetes Mellitus Type 2 in Adults (DC), Sepsis (DC), Clostridium Difficile Infection (DC) Additional Instructions: Complete a total of 14 days of PO Vanc/Flagyl Norvasc, hydralazine, and lasix remain on hold in view of normal BP. Follow up with PCP/Nephro for reinitiation of meds Was bridged with heparin gtt and INR therapeutic prior to d/c. Follow up with anticoagulation clinic outpatient with PT/INR in 3 days Referrals: [facility] [Outside] - 10/23/18 10:45 am Prescriptions: metroNIDAZOLE [Metronidazole] 500 mg PO TID 9 Days #27 tablet Vancomycin Oral Soln [Firvanq] 500 mg PO QID 9 Days #144 [facility] [place]
[2018-10-15] MEDS: Vancomycin Oral Soln 125 MG/2.5 ML UDC PO SCH ×2 (10:25→13:36)
--- NOTE | 2018-10-15 10:37 | Discharge Summary ---
- NOTES TO OUTPATIENT PROVIDER Notes to Outpatient Provider: Patient was admitted for sepsis secondary to C. difficile colitis and new onset atrial fibrillation. Clinically improved with PO Vanc and Flagyl (which was added in view of refractory symptom on PO Vanc only). Will be discharged home on a total of 14 day course. As for anticoagulation for Afib, patient was already on transition to PO Coumadin due to recently diagnosed DVT and was bridged successfully to Warfarin with heparin gtt while inpatient. Follow up with anticoagulation clinic as outpatient. Hydralazine, Norvasc, and Lasix remain on hold as his BP/HR were well controlled on Coreg only. Orders not resulted at time of discharge: Pending orders 10/15/18 20:00 Heparin anti-factor XA UFH [COAG] Timed 10/16/18 04:00 Basic Metabolic Panel AM 0400 CBC [Complete Blood Count] [HEME] AM 0400 PT/INR [Prothrombin Time INR] [COAG] AM 0400 10/17/18 04:00 PT/INR [Prothrombin Time INR] [COAG] AM 0400 10/18/18 04:00 PT/INR [Prothrombin Time INR] [COAG] AM 0400 Date of Encounter: 10/15/18 Time of Encounter: 08:00 - Discharge Diagnosis (1) Sepsis Priority: Primary Status: Acute Qualifiers: Sepsis type: sepsis due to unspecified organism Qualified Code(s): A41.9 - Sepsis, unspecified organism (2) C. 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 use Diabetes mellitus complication status: with kidney complications Diabetes mellitus complication detail: with chronic kidney disease Chronic kidney disease stage: stage 4 (severe) Qualified Code(s): E11.22 - Type 2 diabetes mellitus with diabetic chronic kidney disease; N18.4 - Chronic kidney disease, stage 4 (severe); 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 Sandoval is a 73 year old male was admitted for sepsis secondary to C. difficile colitis and new onset atrial fibrillation. Clinically improved with PO Vanc and Flagyl (which was added in view of refractory symptom on PO Vanc only). Will be discharged home on a total of 14 day course. As for anticoagulation for Afib, patient was already on transition to PO Coumadin due to recently diagnosed DVT and was bridged successfully to Warfarin with heparin gtt while inpatient. Follow up with anticoagulation clinic as outpatient. Hydralazine, Norvasc, and Lasix remain on hold as his BP/HR were well controlled on Coreg only. Discharge discussed with: patient, nurse, insurance consultant - Time Spent with Patient Total time spent providing and/or coordinating discharge services: 36 mins - Discharge Medications Prescriptions: New Vancomycin Oral Soln [Firvanq] 500 mg PO QID 9 Days #144 [facility] Continue Insulin Glargine,Hum.rec.anlog [Lantus Solostar] 40 unit SQ HS Albuterol Sulfate [Proair Hfa] 2 puff IH Q4H PRN PRN Reason: Shortness Of Breath Allopurinol [Zyloprim] 300 mg PO DAILY Budesonide/Formoterol 80/4.5 [Symbicort 80/4.5] 2 puff IH BIDR Calcitriol [Rocaltrol] 0.25 mcg PO DAILY Calcium Acetate [Phos-LO] 667 mg PO TIDWM Ferrous Gluconate 324 mg PO BID Gabapentin [Neurontin] 300 mg PO BID Insulin ASPART [Novolog Flexpen] 18 unit SQ TIDWM Ipratropium [place] 1 spr NS BID PRN PRN Reason: NASAL DISCHARGE Methocarbamol [Robaxin] 500 mg PO Q8HR PRN PRN Reason: Muscle Spasm Pantoprazole Sodium [Protonix] 40 mg PO DAILY Pravastatin Sodium [Pravachol] 40 mg PO HS Ranolazine [Ranexa] 500 mg PO BID Tiotropium [Spiriva] 1 puff IH QAM traZODone [TraZODone] 50 mg PO HS PRN PRN Reason: Sleep Cyanocobalamin (B-12) [Vitamin B12] 1,000 mcg PO DAILY Ergocalciferol (VITAMIN D2) [Vitamin D2] 50,000 unit PO QWEEK Ketotifen Fumarate [Zaditor] 1 drop BOTH EYES BID Isosorbide MONOnitrate (24 HR) [Imdur] 60 mg PO DAILY #30 tab.er.24h Carvedilol [Coreg] 25 mg PO BID Warfarin [Coumadin] 5 mg PO DAILY metroNIDAZOLE [Metronidazole] 500 mg PO TID 9 Days #27 tablet Discontinued amLODIPine [Norvasc] 5 mg PO DAILY Hydralazine HCl 50 mg PO TID Furosemide [Lasix] 40 mg PO BID 30 Days #60 tablet Enoxaparin [Lovenox] 100 mg SQ DAILY Home Medications: Insulin Glargine,Hum.rec.anlog [Lantus Solostar] 40 unit SQ HS 01/15/16 [H istory] Albuterol Sulfate [Proair Hfa] 2 puff IH Q4H PRN 09/10/18 [History] Allopurinol [Zyloprim] 300 mg PO DAILY 09/10/18 [History] Budesonide/Formoterol 80/4.5 [Symbicort 80/4.5] 2 puff IH BIDR 09/10/18 [History] Calcitriol [Rocaltrol] 0.25 mcg PO DAILY 09/10/18 [History] Calcium Acetate [Phos-LO] 667 mg PO TIDWM 09/10/18 [History] Ferrous Gluconate 324 mg PO BID 09/10/18 [History] Gabapentin [Neurontin] 300 mg PO BID 09/10/18 [History] Insulin ASPART [Novolog Flexpen] 18 unit SQ TIDWM 09/10/18 [History] Ipratropium [place] 1 spr NS BID PRN 09/10/18 [History] Methocarbamol [Robaxin] 500 mg PO Q8HR PRN 09/10/18 [History] Pantoprazole Sodium [Protonix] 40 mg PO DAILY 09/10/18 [History] Pravastatin Sodium [Pravachol] 40 mg PO HS 09/10/18 [History] Ranolazine [Ranexa] 500 mg PO BID 09/10/18 [History] Tiotropium [Spiriva] 1 puff IH QAM 09/10/18 [History] traZODone [TraZODone] 50 mg PO HS PRN 09/10/18 [History] Cyanocobalamin (B-12) [Vitamin B12] 1,000 mcg PO DAILY 09/29/18 [History] Ergocalciferol (VITAMIN D2) [Vitamin D2] 50,000 unit PO QWEEK 09/29/18 [History] Ketotifen Fumarate [Zaditor] 1 drop BOTH EYES BID 09/29/18 [History] Isosorbide MONOnitrate (24 HR) [Imdur] 60 mg PO DAILY #30 tab.er.24h 10/06/18 [Rx] Carvedilol [Coreg] 25 mg PO BID 10/11/18 [History] Warfarin [Coumadin] 5 mg PO DAILY 10/14/18 [History] Vancomycin Oral Soln [Firvanq] 500 mg PO QID 9 Days #144 [facility] 10/15/18 [Rx] metroNIDAZOLE [Metronidazole] 500 mg PO TID 9 Days #27 tablet 10/15/18 [Rx] Allergies/Adverse Reactions: Allergy/AdvReac Type Severity Reaction Status Date / Time niacin Allergy Unknown unknown Verified 09/10/18 22:25 atorvastatin [From Lipitor] AdvReac Unknown stomach Verified 09/10/18 22:25 pain simvastatin [From Zocor] AdvReac Unknown stomach Verified 09/10/18 22:25 pain Date of admission: 10/12/18 16:37 Primary care physician: PCP NONE Consults: 10/09/18 22:45 Consult to Nephrology [CONS] Stat Consulting Provider: [facility]/TIIGST/LASHONDA/GERI Reason for Consult: BUCKY in setting of CKD, acute pancolitis +/- C. Diff Time Notified: 22:46 Call Completed: Yes 10/11/18 10:52 Consult to Surgery [CONS] Routine Consulting Provider: [facility] Reason for Consult: C. diff colitis, worsen abd distention Call Completed: Yes 10/13/18 06:02 Consult to Cardiology [CONS] Routine Comment: Consulting Provider: Cardiology Aileen Reason for Consult: New onset afib with RVR with rate of 118. No history of afib. Call Completed: No - Constitutional Vitals: Temp Pulse Resp BP Pulse Ox 98.6 F 96 16 122/86 95 10/15/18 07:10 10/15/18 07:10 10/15/18 08:21 10/15/18 07:10 10/15/18 08:21 General appearance: Present: cooperative, mild distress, A&O X 3, pleasant, answers questions appropriately Exam: General: A&O x 3 Heart: Irregularly irregular but normal rate. No murmurs, rubs or gallops Lungs: Clear to auscultation bilaterally, no rales, rhonchi, wheezes Abdomen: Soft, mildly distended but non-tender. No rebound/guarding/rigidity Musculoskeletal: Bilateral knees show no effusion, warmth, or erythema - Patient Status Disposition: Home, Self-Care Condition: Fair Functional capacity at discharge: independent ambulation Overall status at discharge: patient is progressing back to baseline - Discharge Instructions Instructions: Atrial Fibrillation (DC), Clostridium Difficile Infection (DC), Sepsis (DC), Diabetes Mellitus Type 2 in Adults (DC) Follow Up With: [facility] [Outside] - 10/23/18 10:45 am Additional Instructions: Complete a total of 14 days of PO Vanc/Flagyl Norvasc, hydralazine, and lasix remain on hold in view of normal BP. Follow up with PCP/Nephro for reinitiation of meds Was bridged with heparin gtt and INR therapeutic prior to d/c. Follow up with anticoagulation clinic outpatient with PT/INR in 3 days - Diet and Activity Activity: resume usual activities as tolerated Diet: advance to your usual diet
[2018-10-15] MEDS ORDERED: *HR* Warfarin 5 MG TABLET PO ONE (18:00)
--- NOTE | 2018-10-16 19:23 | Electrocardiograph Report ---
[place] [id number] Test Date: 2018-10-13 Pat Name: Casper Sandoval Department: 115 Room: 3A37 Gender: M Calculation Clerk: [id number] : 1945 Requested By: Ollie Patel Order Number: [id number] Reading MD: Ramesh Serrano Measurements Intervals [place] Rate: 118 P: [place]: 0 QRS: -2 QRSD: 103 T: 97 QT: 363 QTc: 433 Interpretive Statements ATRIAL FIBRILLATION WITH RAPID VENTRICULAR RESPONSE NONSPECIFIC T-WAVE ABNORMALITY Electronically Signed On 10-16-2018 19:21:49 EDT by Ramesh Serrano
== END 2018-10-15 14:00 | disposition home or self-care (01) | DRG 872 ==
LOC: EMEROOARM 18:30 → 3ANU 18:30 → SUATTDRO 23:07 → 3ANU 23:36 → SUATTDRO 10-12 16:37
PROVIDERS: ADMIT Family Medicine; ATTEND Internal Medicine